=== PATIENT | female | born 1960 | race Caucasian/White ===

== ENCOUNTER 2019-12-12 11:15 | Outpatient (CLI) | payer MEDICARE, OTHER, SELFPAY ==
--- NOTE | ~2019-12-12 | XR_ITS ---
EXAMINATION: XR chest 2V EXAM DATE: 12/12/2019 11:55 INDICATION: Acute upper respiratory tract infection. TECHNIQUE: Frontal and lateral projections of the chest obtained and reviewed. Comparison is made to prior examination from 11/14/2016. FINDINGS: The lungs are clear. There are no pleural effusions. The cardiomediastinal silhouette is within normal limits. There is no pneumothorax suspected. Probable right-sided rotator cuff calcifi c tendinosis. Mild thoracic spondylosis. IMPRESSION: No acute cardiopulmonary findings. Reviewed, dictated and finalized at location B.
[2019-12-12 13:13] LABS: Vitamin D 25 Hydroxy 38.8 ng/mL
== END 2019-12-12 11:16 | disposition home or self-care (01) ==
PROVIDERS: Family Provider Physician Assistant Medical; PCP Family Medicine; Visit Provider Nurse Practitioner Family
DX: E55.9 Vitamin D deficiency, unspecified (principal); J06.9 Acute upper respiratory infection, unspecified; R05 Cough
CPT/HCPCS: 36415; 71046; 82306

== ENCOUNTER 2020-12-01 13:10 | Outpatient (RCR) | payer MEDICARE, OTHER, SELFPAY | END 2021-02-15 15:19 | disposition home or self-care (01) | LOC: ANHDMC 13:10 | PROVIDERS: PCP Family Medicine; Visit Provider Family Medicine | DX: E11.65 Type 2 diabetes mellitus with hyperglycemia (principal); Z71.89 Other specified counseling | CPT/HCPCS: G0108 ==

== ENCOUNTER 2021-03-15 15:55 | Outpatient (CLI) | payer MEDICARE, MEDICAID, SELFPAY ==
--- NOTE | ~2021-03-15 | XR_ITS ---
XR chest 2V DATE: 03/15/2021 16:12 INDICATION: Cough and shortness of breath for one month. Smoker, emphysema. TECHNIQUE: PA and lateral views COMPARISON: 12/12/2019 PA and lateral chest FINDINGS: Normal heart size. No hilar or mediastinal enlargement. No pulmonary infiltrate or consolid ation, pleural effusion or pulmonary vascular congestion or pneumothorax. Diffuse osteopenia. Right-sided probable calcified tendinosis is again suggested. Degenerative spurri ng of the thoracic spine. IMPRESSION: No active cardiopulmonary disease Reviewed, dictated and finalized at location A.
== END 2021-03-15 15:56 | disposition home or self-care (01) ==
PROVIDERS: PCP Family Medicine; Visit Provider Nurse Practitioner Family
DX: R05 Cough (principal)
CPT/HCPCS: 71046

== ENCOUNTER → 2021-09-28 02:11 | Outpatient (CLI) | payer MEDICARE, OTHER, SELFPAY ==
[2021-09-29 03:58] LABS: SARS-CoV-2 RNA PCR Positive
== END ==
PROVIDERS: PCP Family Medicine; Visit Provider Nurse Practitioner Family
DX: U07.1 COVID-19 (principal)
CPT/HCPCS: C9803; U0003; U0005

== ENCOUNTER 2022-10-24 14:03 | Outpatient (CLI) | payer MEDICARE, MEDICAID, SELFPAY ==
--- NOTE | ~2022-10-24 | XR_ITS ---
EXAMINATION: XR chest 2V Exam Date/Time: 10/24/2022 14:10 SINGLE POINTED OPERATOR HISTORY: R05.2 - Subacute cough X 1 MONTH Comparison: 03/15/2021. RESULT: Lines, tubes, and devices: None. Lungs and pleura: Mild diffuse reticulonodular opacities, slightly increased since the prior study. Cardiomediastinal silhouette: Stable. Other: No acute osseous or upper abdominal finding. IMPRESSION: Pulmonary opacities may represent bronchiolitis, as can be seen with atypical infection, asthma, aspi ration, and small airways disease. Reviewed, dictated and finalized at location K. LE POINTED OPERATOR IMPRESSION: Pulmonary opacities may represent bronchiolitis, as can be seen with atypical i nfection, asthma, aspiration, and small airways disease.
== END 2022-10-24 14:04 | disposition home or self-care (01) ==
PROVIDERS: PCP Family Medicine; Visit Provider Family Medicine
DX: R05.2 Subacute cough (principal)
CPT/HCPCS: 71046

== ENCOUNTER 2024-03-06 10:45 | Outpatient (RCR) | payer MEDICARE, MEDICAID, SELFPAY ==
--- NOTE | 2024-01-01 13:24 | OPREHPOC ---
Outpatient Therapy Plan of Care This is a Multidisciplinary Plan of Care that may contain components documented by all disciplines (PT, OT, and ST.) PT Problem 1 PT Problem #1 Knowledge Deficit PT Goal 1 Goal 1. Patient will be independent with HEP Target Visit 3 PT Problem 2 PT Problem #2 Impaired Functional ADLs PT Goal 1 Goal 1. Patient will report no more than 1 instance of urinary incontinence per week 2. Patient will report no more than 1 instance of fecal incontinence per week PT Problem 3 PT Problem #3 Impaired Functional ADLs PT Goal 1 Goal 1. Patient able to do all community activities without fear of incontinence
--- NOTE | 2024-01-01 13:25 | PTOPEVAL1 ---
Assessment and note entered by Jeannie Spaulding DPT Evaluation Information Assessment Status Evaluation Subjective Information Pt reports fecal incontinence over the last 4 years but has worsened over the last year. Incontinence often happens without warning. Voids 6-8 times a day and 0-1 times at night. Can urge to void 5 minutes. Denies pain with urination. Urinary incontinence as well, 4-5 times a week. Incontinence occurs with coughing, getting up from a chair, waiting too long. Volume is small, wearing pull ups at all times currently. BM typically every other day but frequency changes at times. Unable to hold urge for bowels. Fecal incontinence may occur as often as 2 times a day, but other times may not have any for a week or so. Pt does have history of hemorrhoids which sometimes cause pain, 7-8/10 highest and 0/10 lowest. Denies history of pelvic pain. Pt has been 3 times, 2 vaginal deliveries without complications. Complete hysterectomy in 1994. No other b/b issues. Patient reports she will avoid going out in the community due to fear of the incontinence and always has to carry extra clothes etc. Diet: mostly water, 1 soda a day, 2-3 cups of coffee in the morning. Rarely juice and does not drink alcohol. Breakfast often toast and eggs, lunch sandwich or soup, dinner has meat, potatoes, vegetables. Almost always eats 3 meals a day and snacks in the afternoon and evening. avoids corn as that seems to irritate bowels. Patient goal: strengthen muscles and stop leaking Return to MD is not scheduled. Reported Pain Level Pain Score 0: Self Report Assessment PT Clinical Summary The patient is presenting to skilled therapy with a history of worsening fecal incontinence as well as urinary incontinence. She presents with significantly decreased pelvic floor strength and endurance, pelvic organ prolapse, and decreased overall hip and core strength. She will highly benefit from therapy to address these impairments in order to reduce overall incontinence and improve function. Plan of Care Interventions Manual Therapy,Neuro Re-education,Patient/
--- NOTE | 2024-01-15 11:04 | PCPTNOTE ---
Patient called to cancel appointment 01/15/24 due to being in an accident over the weekend.
--- NOTE | 2024-01-22 12:36 | PCPTNOTE ---
Patient called to cancel appointment on 01/22/24 due to illness.
--- NOTE | 2024-02-05 13:31 | PCPTNOTE ---
Patient called to cancel appointment on 02/05/24 due to a personal conflict.
--- NOTE | 2024-02-20 13:27 | PCPTNOTE ---
Patient called to cancel appointment for 02/20/24 due to not feeling well. Rescheduled to next week.
--- NOTE | 2024-02-28 11:43 | OPREHPOC ---
Outpatient Therapy Plan of Care This is a Multidisciplinary Plan of Care that may contain components documented by all disciplines (PT, OT, and ST.) PT Problem 1 PT Problem #1 Knowledge Deficit PT Goal 1 Goal 1. Patient will be independent with HEP Target Visit 8 Progress Partially Met PT Problem 2 PT Problem #2 Impaired Functional ADLs PT Goal 1 Goal 1. Patient will report no more than 1 instance of urinary incontinence per week 2. Patient will report no more than 1 instance of fecal incontinence per week Target Visit 8 Progress Partially Met Comment 1. some progress 2. no change PT Problem 3 PT Problem #3 Impaired Functional ADLs PT Goal 1 Goal 1. Patient able to do all community activities without fear of incontinence Target Visit 8 Progress Not Met
--- NOTE | 2024-02-28 11:43 | PTOPPROG ---
Assessment and note entered by Jeannie Spaulding DPT Evaluation Information Assessment Status Progress Subjective Information Pt reports she feels some improvements in her incontinence. Urinary incontinence is not occurring as often, 7-8 times a week (some days may have multiple and other days will have none). Fecal incontinence is occurring every 2-3 days. Reports a continued fear to go anywhere due to the incontinence. Assessment PT Clinical Summary The patient has attended 4 visits of therapy including her initial evaluation on 01/01/24 ( multiple cancellations due to illness). She reports some progress and is noticing less frequency of urinary incontinence but the same amount of fecal incontinence. She does demonstrate some improved core and pelvic floor strength with verbal cues. Due to her progress but continued weakness and incontinence, she will benefit from continued therapy. She has been educated again in HEP and importance of attending therapy regularly in order to make further improvements. Plan of Care Interventions Manual Therapy,Neuro Re-education,Patient/ Caregiver Education,Therapeutic Activities, Therapeutic Exercise PT Services Indicated Yes Treatment Frequency and 1 time a week for 4 visits Duration These treatments will address the objective and functional deficits as defined above. The patient will be advanced safely and appropriately in order for the patient to progress towards his/her prior level of function. Additional exercises will be introduced and as well as a comprehensive home exercise program upon discharge, if needed, ?to ensure carryover of functional gains achieved in the clinic. This treatment plan has been reviewed and agreement upon by the patient.
--- NOTE | 2024-03-13 08:24 | PCPTNOTE ---
Patient called to cancel appointment 03/13/24 due to illness.
--- NOTE | 2024-03-20 11:11 | PCPTNOTE ---
Patient called to cancel appointment on 03/20/24 due to illness.
--- NOTE | 2024-03-27 14:48 | PCPTNOTE ---
Patient did not show up for appointment on 03/27/24.
--- NOTE | 2024-05-06 11:20 | PTOPDC ---
Assessment and note entered by Jeannie Spaulding, DPT Evaluation Information Assessment Status Discharge - Pt Not Present Subjective Information - Assessment PT Clinical Summary The patient has not attended therapy since 03/06/24 and had 6 cancellations and 1 no show during her care. She will be discharged this date. Plan of Care PT Services Indicated No
== END 2024-03-31 23:59 | disposition home or self-care (01) ==
LOC: ANHGOSHPT 10:45
PROVIDERS: PCP Family Medicine
DX: R29.898 Other symptoms and signs involving the musculoskeletal system (principal); C80.1 Malignant (primary) neoplasm, unspecified; G63 Polyneuropathy in diseases classified elsewhere
CPT/HCPCS: 97112; 97161; 97530

== ENCOUNTER 2024-08-14 11:01 | Outpatient (CLI) | payer MEDICARE, MEDICAID, SELFPAY ==
--- NOTE | ~2024-08-14 | XR_ITS ---
XR chest 2V Ordering provider: Karen Whiteside APRN History: 64 years Female with . INCREASED SOB AND COUGH . Comparison: October 24, 2022 FINDINGS: MEDIASTINUM: The cardiac silhouette is not enlarged. LUNGS: No effusions or pneumothorax. Prominent bronchovascular markings in the lower lobes which may indicate bronchitis.. Early pneumonia cannot be excluded. OTHER: No free air under the diaphragm. Degenerative changes of the spine. IMPRESSION: Prominent bronchovascular markings in the lower lobes which may indicate bronchitis.. Early pneumonia cannot be excluded. Reviewed, dictated and finalized at location A. PULLER IMPRESSION: Prominent bronchovascular markings in the lower lobes which may indicate bronch itis.. Early pneumonia cannot be excluded.
== END 2024-08-14 11:02 | disposition home or self-care (01) ==
PROVIDERS: PCP Family Medicine; Visit Provider Nurse Practitioner Adult Health
DX: R05.9 Cough, unspecified (principal); R06.02 Shortness of breath
CPT/HCPCS: 71046

== ENCOUNTER 2025-01-15 12:56 | Outpatient (CLI) | payer MEDICARE, MEDICAID, SELFPAY ==
--- NOTE | ~2025-01-15 | DEXA_ITS ---
Bone Density Report Name: CHUY PA Age: 64 Sex: Female Ethnicity: White Date of : 1960 Indication: postmenopausal; screening for osteoporosis; cancer; asthma or emphysema; hysterectomy; Referring Provider: VIRGILIO BIRD Study: Bone densitometry was performed. Exam Date: January 15, 2025 Accession number: [id number] Bone Density: Region BMD T-score Z-score Classification AP Spine(L1-L4) 1.081 0.3 2.0 Normal Femoral Neck (Left) 0.691 -1.4 0.0 Osteopenia Total Hip (Left) 0.735 -1.7 -0.5 Osteopenia Femoral Neck (Right) 0.680 -1.5 -0.1 Osteopenia Total Hip (Right) 0.728 -1.8 -0.6 Osteopenia Total Hip Mean 0.732 -1.8 -0.6 Osteopenia World Health Organization criteria for BMD impression classify patients as: Normal (T-score at or above -1.0), Osteopenia (T-score between -1.0 and -2.5), or Osteoporosis (T-score at or below -2.5). 10-year Fracture Risk(1): Major Osteoporotic Fracture 8.7% Hip Fracture 1.4% Reported Risk Factors: [place] (), Neck BMD=0.680, BMI=28.3, smoking (1) FRAX(R) Version 3.08. Fracture probability calculated for an untreated patient. Fracture probability may be lower if the patient has received treatment. Clinical Information Provided by Patient: Smokes Has used the following medications: Fosamax (i.e. alendronate), Vitamin D Has the following medical conditions: Asthma or Emphysema, Cancer, Hysterectomy Patient maximum height was 64 Menopause Age: 34 No regular weight bearing exercise Drinks caffeinated beverages Onset of menses at age 13 Number of children 2 Impression: The patient has low bone mass, based on the Right Total Hip T-score. The patient has an estimated ten-year risk of hip fracture of 1.4% and an estimated ten-year risk of major fracture of 8.7%, based on the WHO FRAX algorithm. The patient has risk factors, including: smoking. Discussion: BONE DENSITY IS LOW AT ONE OR MORE SKELETAL SITES. This patient's lowest T-score is low at one or more skeletal sites. It meets the World Health Organization's (WHO) criteria for ?low bone mass? (T-score between -1.0 and -2.5). The patient's 10-year risk of fracture as calculated by FRAX is less than the threshold where pharmacological therapy is recommended by the National Osteoporosis Foundation (NOF). However, all treatment decisions require clinical judgment and consideration of individual patient factors, including patient preferences, comorbidities, previous drug use, risk factors not captured in the FRAX model (e.g., frailty, falls, vitamin D deficiency, increased bone turnover, interval significant decline in bone density) and possible under or overestimation of fracture risk by FRAX. The patient should follow a healthful lifestyle (good nutrition with adequate calcium and vitamin D, and appropriate weight-bearing exercise). Follow-Up: Consider repeating this study in 2 to 3 years to reassess this patient's status, or sooner if there is some new clinical indication. Reported by: ANT on 01/15/2025 1:27:00 PM. Reviewed, dictated and finalized at location [facility] [place]
--- OUTSIDE RECORDS SUMMARY | 2025-01-15 13:54 | XMS_ITS | Continuity of Care Document ---
Author Organization [facility] Address [address] [place] [address] [address] [place] [address] Phone Care Team Providers Care Cloth Mender Name Role Phone Camacho OD, Joaquin Unavailable Unavailable Procedures Procedure Date Eye Exam & Treatment Advance Directives Directive Yes / No Effective Date File Name No Information Encounters Encounter Description Practice Location Reason(s) For Visit Diagnoses Date Provider Providers Copied on Encounter [facility], [address], [place], [place], [address], [place] tel:[phone] [facility] No Information 2-200 7 Camacho OD Joaquin. [address], [place], [address], [place]. tel:[phone] Family History Family Member Type Diagnosis Age At Onset No Information Payers Payer name Insurance type Covered libertarian ID Authoriza tion(s) Medicaid [facility] [id number] Social History Type Description Quantity Date Captured [...]
--- OUTSIDE RECORDS SUMMARY | 2025-01-15 13:54 | XMS_ITS | Encounter Summary ---
Author Organization [employer] [facility] Address [address] [place] [address] Care Team Providers Care Glue Maker Name Role Phone Radha Castillo MD Primary Care Provider [phone] Encounter Details Date Type Department Care Team (Latest Contact Info) Description 03/02/2004 Outpatient Historical [facility] Jorge Mcrae MD [address] [place] [id number] LUMP OR MASS IN BREAST (Primary Dx) Social History Tobacco Use Types Packs/Day Years Used Date Smoking Tobacco: Never Assessed Comments Unknown Sex and Gender Information Value Date Recorded Sex Assigned at Not on file Legal Sex Female 5:24 AM [employer] Gender Identity Not on file Sexual Orientation Not on file documented as of this encounter Plan of Treatment Not on file documented as of this encounter Visit Diagnoses Diagnosis Lump or mass in breast- Primary documented in this encounter Care Teams Glue Maker Relationship Specialty Start Date End Date Radha Castillo MD 2022 [address] [address] PCP - General 04/24/06 documented as of this encounter
--- OUTSIDE RECORDS SUMMARY | 2025-01-15 13:54 | XMS_ITS | CONTINUITY OF CARE DOCUMENT ---
Author Name ashkan luther Address Unknown Organization [facility] Address [address] [place] [address] Phone [phone] Care Team Providers Care Health Spa Manager Name Role Phone Kasia FREDERICK, Marcin Carmona Unavailable [phone] SHUN FREDERICK, LENO F Unavailable SHUN FREDERICK, LENO F Unavailable [phone] PROBLEMS Condition Status Date Provider Notes Shortness of breath (SOB) active Joby Torres Family History of Hypertension: completed - To manjeet Patrick MD Family History of Hypertension: completed - To manjeet Patrick MD Other symptoms involving cardiovascular system active Marcin Pedroza MD Chest pain atypical active Marcin Pedroza MD Cardiogenic shock active Marcin Aguilar Cancer - Breast active Marcin Pedroza MD CAD active Marcin Pedroza MD DM - type 2 active Marcin Pedroza MD Family Hx heart disease active Marcin jennings MD HTN essential active Marcin Pedroza MD Takotsubo syndrome active Marcin Pedroza MD Tobacco abuse active Marcin Pedroza MD Palpitations active Marcin Pedroza MD Snoring active Marcin Pedroza MD Leg pain active Marcin Pedroza MD Afib active Austin Patrick MD SLEEP APNEA active Marcin Pedroza MD Carotid bruit right active Marcin Pedroza MD Thyroid nodule active Marcin Pedroza MD Exposure to COVID-19 coronavirus active Nima Pedroza MD Cardiovascular Condition Screening active S jc Pedroza MD RBBB active Marcin Pedroza MD ENCOUNTERS Date Type Provider Location Encounter Diag nosis - In-person encounter Office Visit Marcin Pedroza MD [facility] - In-person encounter Office Visit Marcin Pedroza MD [facility] - In-person encounter Office Visit Marcin Pedroza MD [facility] RBBB - In-person encounter Office Visit Marcin Pedroza MD [facility] Cardiovascular Condition Screening - In-person encounter Office Visit Marcin Pedroza MD [facility] Exposure to COVID-19 coronavirus - In-person encounter Office Visit Marcin Pedroza MD [facility] Thyroid nodule - In-person encounter Office Visit Marcin Pedroza MD [facility] Carotid bruit right - In-person encounter Office Visit Marcin Pedroza MD [facility] SLEEP APNEA - In-person encounter Office Visit Marcin Pedroza MD [facility] - In-person encounter Office Visit Austin Patrick MD [facility] Family History of Hypertension:Family History of Hypertension:Afib - In-person encounter Office Visit Marcin Pedroza MD [facility] - In-person encounter Office Visit Marcin Pedroza MD [facility] - In-person encounter Office Visit Marcin Pedroza MD [facility] Leg pain - In-person encounter Office Visit Marcin Pedroza MD [facility] Snoring - In-person encounter Office Visit Marcin Pedroza MD [facility] Palpitations - In-person encounter Office Visit Marcin Pedroza MD [facility] Other symptoms involving cardiovascular systemChest pain atypicalCardiogenic shockCancer - BreastCADDM - type 2Family Hx heart diseaseHTN essentialTakotsubo syndromeTobacco abuse VITAL SIGNS Date Observation Value Provider Body Mass Index (Ratio) 22.14 kg/m2 Yinka Pruett blood pressure, diastolic 69 mm[Hg] [facility], oximetry 91 % [facility] pulse rate 95 /min [facility] respiratory rate E&M 12 /min [facility] weight E&M 129 [lb_av] [facility] height E&M 64 [in_i] [facility] blood pressure, cuff size regular [facility] Body Mass Index (Ratio) 6.35 kg/m2 Nati Pedroza MD blood pressure, diastolic 65 mm[Hg] Vianey nkLogdagmar blood pressure, systolic 120 mm[Hg] Kathy kLogdagmar weight E&M 37 [lb_av] Aleta Parker blood pressure, cuff size regular Brian Parker blood pressure, diastolic 65 mm[Hg] [facility] blood pressure, systolic 120 mm[Hg] [facility], oximetry 93 % Aleta Parker respiratory rate E&M 17 /min Aleta buchanan pulse rate 110 /min Aleta Parker height E&M 64 [in_i] Aleta Parker Body Mass Index (Ratio) 23.51 kg/m2 Nati Pedroza MD blood pressure, diastolic 75 mm[Hg] Li nkLogic blood pressure, systolic 117 mm[Hg] Kathy kLogic blood pressure, cuff size regular viky Lofton blood pressure, diastolic 75 mm[Hg] Caren [place]on blood pressure, systolic 117 mm[Hg] She pilar [place]on oxygen saturation, oximetry 96 % Alexsandra Lofton pulse rate 102 /min Alexsandra Lofton weight E&M 137 [lb_av] Alexsandra Lofton respiratory rate E&M 20 /min Alexsandra Lofton height E&M 64 [in_i] Alexsandra Lofton Body Mass Index (Ratio) 24.20 kg/m2 Nati Pedroza MD blood pressure, diastolic 80 mm[Hg] St bessy Acosta blood pressure, systolic 117 mm[Hg] Jori Acosta oxygen saturation, oximetry 98 % Cherelle Acosta pulse rate 94 /min Cherelle Acosta respiratory rate E&M 18 /min Cherelle burgess weight E&M 141 [lb_av] Cherelle Acosta height E&M 64 [in_i] Cherelle Acosta Body Mass Index (Ratio) 22.83 kg/m2 Nati Pedroza MD blood pressure, diastolic 76 mm[Hg] Li nkLogic blood pressure, systolic 118 mm[Hg] Kathy kLogic pulse rate 109 /min Jena Castillo blood pressure, cuff size regular Sa ra Castillo blood pressure, diastolic 76 mm[Hg] Sa ra Castillo blood pressure, systolic 118 mm[Hg] Opal a Castillo respiratory rate E&M 17 /min Jena Si ms oxygen saturation, oximetry 96 % Jena Castillo weight E&M 133 [lb_av] Jena Castillo height E&M 64 [in_i] Jena Castillo Body Mass Index (Ratio) 24.71 kg/m2 Nati Pedroza MD blood pressure, diastolic 78 mm[Hg] Li nkLogic blood pressure, systolic 124 mm[Hg] Kathy kLogic pulse rate 99 /min Chastity Mat blood pressure, diastolic 78 mm[Hg] Ch astity Mat blood pressure, systolic 124 mm[Hg] Violeta stity Mat oxygen saturation, oximetry 95 % Chastity Mat weight E&M 144 [lb_av] Chastity Mat respiratory rate E&M 16 /min Chastit y Mat height E&M 64 [in_i] Chastity Mat Body Mass Index (Ratio) 25.06 kg/m2 Nati Pedroza MD blood pressure, diastolic 60 mm[Hg] Leann Phan blood pressure, systolic 110 mm[Hg] Celia Phan oxygen saturation, oximetry 96 % Tyree Phan respiratory rate E&M 18 /min Abraham Phan pulse rate 91 /min Tyree ghotra weight E&M 146 [lb_av] Tyree ghotra height E&M 64 [in_i] Tyree ghotra Body Mass Index (Ratio) 25.23 kg/m2 Nati Pedroza MD blood pressure, cuff size regular Arian Adler RN blood pressure, diastolic 67 mm[Hg] Arian Adler RN blood pressure, systolic 104 mm[Hg] Louis Adler RN oxygen saturation, oximetry 97 % Louis Adler RN respiratory rate E&M 18 /min Louis rosado RN pulse rate 101 /min Louis Adler RN weight E&M 147 [lb_av] Louis Adler RN Body Mass Index (Ratio) 25.40 kg/m2 Nati Pedroza MD blood pressure, cuff size regular Cy eliana Long blood pressure, diastolic 70 mm[Hg] Cy eliana Long blood pressure, systolic 104 mm[Hg] Esthela donte Long oxygen saturation, oximetry 98 % Anuradha Long respiratory rate E&M 16 /min Anuradhadonte Long pulse rate 95 /min Anuradha Evans l weight E&M 148 [lb_av] Anuradha Campbel l height E&M 64 [in_i] Anuradha Campbel l Body Mass Index (Ratio) 24.71 kg/m2 Phu Patrick MD oxygen saturation, oximetry 98 % Chastity Mat blood pressure, diastolic 68 mm[Hg] Ch astity Mat blood pressure, systolic 114 mm[Hg] Violeta stity Mat pulse rate 83 /min Chastity Mat respiratory rate E&M 16 /min Chastit y Mat weight E&M 144 [lb_av] Chastity Mat height E&M 64 [in_i] Chastity Mat Body Mass Index (Ratio) 26.77 kg/m2 Agusto Plurad blood pressure, diastolic 80 mm[Hg] Da naida Jace blood pressure, systolic 138 mm[Hg] Dac ia Jace oxygen saturation, oximetry 96 % Nai Jace respiratory rate E&M 16 /min Nai V oss pulse rate 98 /min Nai Jace weight E&M 156 [lb_av] Nai Jace height E&M 64 [in_i] Nai Jace Body Mass Index (Ratio) 28.01 kg/m2 Nati Pedroza MD blood pressure, diastolic 73 mm[Hg] Leann Carr Phan blood pressure, systolic 129 mm[Hg] Celia Phan oxygen saturation, oximetry 97 % Tyree Phan respiratory rate E&M 18 /min Abraham Phan pulse rate 113 /min Tyree ghotra weight E&M 163.2 [lb_av] Tyree pepeon height E&M 64 [in_i] Tyree Chisholm nson pulse rate #2 100 [facility] blood pressure, tellez tolic, second observation 83 mm[Hg] [facility] blood pressure, syst olic, second observation 141 mm[Hg] [facility], [facility] 98 % [facility] pulse rate 100 /min [facility] blood pressure, diastolic 83 mm[Hg] Vi ctoria Tebid blood pressure, systolic 141 mm[Hg] Romel radha Tebid pulse rate #2 98 [facility] pressure, tellez tolic, second observation 92 mm[Hg] [facility] blood pressure, syst olic, second observation 145 mm[Hg] [facility] oxygen saturation, oximetry 98 % [facility] pulse rate 98 /min [facility] blood pressure, diastolic 92 mm[Hg] Vi ctoria Tebid blood pressure, systolic 145 mm[Hg] Romel radha Tebid pulse rate #2 99 Etters Tebid blood pressure, tellez tolic, second observation 72 mm[Hg] Shelby d blood pressure, syst olic, second observation 115 mm[Hg] Shelby d oxygen saturation, oximetry 98 % Shelby pulse rate 99 /min Etters d blood pressure, diastolic 72 mm[Hg] Vi ctoria Tebid blood pressure, systolic 115 mm[Hg] Romel radha Tebid pulse rate #2 98 [facility] blood pressure, tellez tolic, second observation 79 mm[Hg] [facility] blood pressure, syst olic, second observation 123 mm[Hg] [facility] oxygen saturation, oximetry 98 % [facility] pulse rate 98 /min [facility] blood pressure, diastolic 79 mm[Hg] Vi [facility] Ted blood pressure, systolic 123 mm[Hg] [facility] Ted pulse rate #2 94 Etters blood pressure, tellez tolic, second observation 89 mm[Hg] Etters d blood pressure, syst olic, second observation 167 mm[Hg] Etters d oxygen saturation, oximetry 98 % Etters pulse rate 94 /min [facility] blood pressure, diastolic 89 mm[Hg] Vi [facility] Ted blood pressure, systolic 167 mm[Hg] [facility]2 92 [facility] blood pressure, tellez tolic, second observation 91 mm[Hg] Etters d blood pressure, syst olic, second observation 141 mm[Hg] [facility] oxygen [facility], oximetry 98 % [facility] pulse rate 92 /min [facility] blood pressure, diastolic 91 mm[Hg] Vi proria Tebid blood pressure, systolic 141 mm[Hg] Romel radha Tebid pulse rate #2 98 [facility] blood pressure, tellez tolic, second observation 70 mm[Hg] [facility] blood pressure, syst olic, second observation 107 mm[Hg] [facility] oxygen saturation, oximetry 98 % [facility] pulse rate 98 /min [facility] blood pressure, diastolic 70 mm[Hg] Vi ctoria Tebid blood pressure, systolic 107 mm[Hg] [facility], tellez tolic, second observation 72 mm[Hg] [facility] blood pressure, syst olic, second observation 123 mm[Hg] [facility] oxygen saturation, oximetry 98 % [facility] pulse rate 99 /min [facility] blood pressure, diastolic 72 mm[Hg] Vi proria Tebid blood pressure, systolic 123 mm[Hg] [facility] #2 103 [facility] blood pressure, tellez tolic, second observation 71 mm[Hg] [facility] blood pressure, syst olic, second observation 162 mm[Hg] [facility] oxygen saturation, oximetry 98 % [facility] pulse rate 103 /min [facility] blood pressure, diastolic 71 mm[Hg] Vi ctoria Tebid blood pressure, systolic 162 mm[Hg] Romel radha Tebid pulse rate #2 103 [facility] blood pressure, tellez tolic, second observation 85 mm[Hg] [facility] blood pressure, syst olic, second observation 128 mm[Hg] [facility] oxygen saturation, oximetry 98 % [facility] pulse rate 103 /min [facility] blood pressure, diastolic 85 mm[Hg] Vi ctoria Tebid blood pressure, systolic 128 mm[Hg] Romel wilsonia bid pulse rate #2 108 Etters d blood pressure, tellez tolic, second observation 95 mm[Hg] Etters d blood pressure, syst olic, second observation 118 mm[Hg] [facility] oxygen saturation, oximetry 98 % Etters pulse rate 108 /min Etters blood pressure, diastolic 95 mm[Hg] Vi ctoria Ted blood pressure, systolic 118 mm[Hg] Romel radha d pulse rate #2 101 [facility] blood pressure, telelz tolic, second observation 73 mm[Hg] [facility] blood pressure, syst olic, second observation 129 mm[Hg] [facility] oxygen saturation, oximetry 98 % Etters pulse rate 101 /min Etters blood pressure, diastolic 73 mm[Hg] Vi [facility] Ted blood pressure, systolic 129 mm[Hg] [facility]el [facility] #2 95 [facility] blood pressure, tellez tolic, second observation 76 mm[Hg] [facility] blood pressure, syst olic, second observation 130 mm[Hg] [facility] oxygen saturation, oximetry 98 % [facility] pulse rate 95 /min Etters blood pressure, diastolic 76 mm[Hg] Vi [facility] Ted blood pressure, systolic 130 mm[Hg] Romel radha bid pulse rate #2 90 [facility] d blood pressure, tellez tolic, second observation 82 mm[Hg] [facility] blood pressure, syst olic, second observation 115 mm[Hg] [facility] oxygen saturation, oximetry 98 % [facility] pulse rate 90 /min Shelby Tebid blood pressure, diastolic 82 mm[Hg] Vi ctoria Tebid blood pressure, systolic 115 mm[Hg] Romel radha Tebid pulse rate #2 97 [facility] blood pressure, tellez tolic, second observation 92 mm[Hg] [facility] blood pressure, syst olic, second observation 140 mm[Hg] [facility] oxygen saturation, oximetry 98 % Shelby d pulse rate 97 /min [facility] blood pressure, diastolic 92 mm[Hg] Vi ctoria Tebid blood pressure, systolic 140 mm[Hg] Romel radha Tebid pulse rate #2 84 [facility] blood pressure, tellez tolic, second observation 85 mm[Hg] [facility] blood pressure, syst olic, second observation 124 mm[Hg] [facility] oxygen saturation, oximetry 98 % Shelby d pulse rate 84 /min [facility] blood pressure, diastolic 85 mm[Hg] Vi [facility] Tebid blood pressure, systolic 124 mm[Hg] Romel radha Tebid pulse rate #2 97 [facility] blood pressure, tellez tolic, second observation 90 mm[Hg] [facility] blood pressure, syst olic, second observation 141 mm[Hg] [facility] oxygen saturation, oximetry 97 % [facility] pulse rate 97 /min [facility] blood pressure, diastolic 90 mm[Hg] Vi ctoria Tebid blood pressure, systolic 141 mm[Hg] Romel radha Tebid Body Mass Index (Ratio) 28.04 kg/m2 Nati Pedroza MD blood pressure, diastolic 90 mm[Hg] Leann Phan blood pressure, systolic 141 mm[Hg] Celia Phan oxygen saturation, oximetry 97 % Tyree Phan respiratory rate E&M 18 /min Abraham Phan pulse rate 97 /min Tyree ghotra weight E&M 163.4 [lb_av] Tyree house height E&M 64 [in_i] Tyree ghotra pulse rate #2 97 [facility] blood pressure, tellez tolic, second observation 88 mm[Hg] [facility] blood pressure, syst olic, second observation 143 mm[Hg] [facility] oxygen saturation, oximetry 98 % [facility] pulse rate 97 /min [facility] blood pressure, diastolic 88 mm[Hg] Vi ctoria Tebid blood pressure, systolic 143 mm[Hg] Romel radha Tebid pulse rate #2 90 [facility] blood pressure, tellez tolic, second observation 85 mm[Hg] [facility] blood pressure, syst olic, second observation 136 mm[Hg] [facility] oxygen saturation, oximetry 98 % [facility] pulse rate 90 /min [facility] blood pressure, diastolic 85 mm[Hg] Vi ctoria Tebid blood pressure, systolic 136 mm[Hg] Romel radha Tebid pulse rate #2 102 [facility] blood pressure, tellez tolic, second observation 88 mm[Hg] [facility] blood pressure, syst olic, second observation 132 mm[Hg] [facility] oxygen saturation, oximetry 98 % [facility] pulse rate 102 /min [facility] blood pressure, diastolic 88 mm[Hg] Vi ctoria Tebid blood pressure, systolic 132 mm[Hg] Romel radha Tebid pulse rate #2 101 Et[facility] d blood pressure, tellez tolic, second observation 84 mm[Hg] Shelby d blood pressure, syst olic, second observation 135 mm[Hg] Shelby d oxygen saturation, oximetry 98 % Etters pulse rate 101 /min [facility] blood pressure, diastolic 84 mm[Hg] Vi [facility] Tebid blood pressure, systolic 135 mm[Hg] [facility] Tebid pulse rate #2 97 [facility] blood pressure, tellez tolic, second observation 84 mm[Hg] [facility] blood pressure, syst olic, second observation 143 mm[Hg] [facility] oxygen saturation, oximetry 98 % [facility] pulse rate 97 /min [facility] blood pressure, diastolic 84 mm[Hg] Vi [facility] Ted blood pressure, systolic 143 mm[Hg] [facility] Ted pulse rate #2 91 Etters d blood pressure, tellez tolic, second observation 90 mm[Hg] [facility] blood pressure, syst olic, second observation 140 mm[Hg] [facility] oxygen saturation, oximetry 98 % [facility] pulse rate 91 /min [facility] blood pressure, diastolic 90 mm[Hg] Vi [facility] Tebid blood pressure, systolic 140 mm[Hg] [facility] #2 96 [facility] blood pressure, tellez tolic, second observation 82 mm[Hg] [facility] blood pressure, syst olic, second observation 136 mm[Hg] [facility] oxygen saturation, oximetry 98 % [facility] pulse rate 96 /min [facility] blood pressure, diastolic 82 mm[Hg] Vi ctoria Tebid blood pressure, systolic 136 mm[Hg] Romel radha Tebid pulse rate #2 92 Et[facility] d blood pressure, tellez tolic, second observation 82 mm[Hg] Etters d blood pressure, syst olic, second observation 136 mm[Hg] [facility] oxygen saturation, oximetry 98 % Etters pulse rate 92 /min Etters blood pressure, diastolic 82 mm[Hg] Vi ctoria Tebid blood pressure, systolic 136 mm[Hg] Romel radha bid pulse rate #2 96 [facility] blood pressure, tellez tolic, second observation 74 mm[Hg] [facility] blood pressure, syst olic, second observation 138 mm[Hg] [facility] oxygen saturation, oximetry 98 % [facility] pulse rate 96 /min [facility] blood pressure, diastolic 74 mm[Hg] Vi [facility] Tebid blood pressure, systolic 138 mm[Hg] Romel radha Tebid pulse rate #2 92 Et[facility] blood pressure, tellez tolic, second observation 82 mm[Hg] [facility] blood pressure, syst olic, second observation 136 mm[Hg] [facility] oxygen saturation, oximetry 98 % [facility] pulse rate 92 /min [facility] blood pressure, diastolic 82 mm[Hg] Vi ctoria Tebid blood pressure, systolic 136 mm[Hg] Romel radha Tebid pulse rate #2 92 [facility] blood pressure, tellez tolic, second observation 76 mm[Hg] [facility] blood pressure, syst olic, second observation 142 mm[Hg] [facility] oxygen saturation, oximetry 98 % [facility] pulse rate 92 /min [facility] blood pressure, diastolic 76 mm[Hg] Vi ctoria Tebid blood pressure, systolic 142 mm[Hg] Romel radha Tebid pulse rate #2 98 [facility] blood pressure, tellez tolic, second observation 92 mm[Hg] [facility] blood pressure, syst olic, second observation 144 mm[Hg] [facility] oxygen saturation, oximetry 98 % [facility] pulse rate 98 /min [facility] blood pressure, diastolic 92 mm[Hg] Vi [facility] Tebid blood pressure, systolic 144 mm[Hg] [facility] Tebid pulse rate #2 92 [facility] blood pressure, tellez tolic, second observation 91 mm[Hg] [facility] blood pressure, syst olic, second observation 131 mm[Hg] [facility] oxygen saturation, oximetry 98 % [facility] pulse rate 92 /min [facility] blood pressure, diastolic 91 mm[Hg] Vi [facility] Ted blood pressure, systolic 131 mm[Hg] Romel radha Tebid pulse rate #2 95 [facility] blood pressure, tellez tolic, second observation 95 mm[Hg] [facility] blood pressure, syst olic, second observation 133 mm[Hg] [facility] oxygen saturation, oximetry 98 % [facility] pulse rate 95 /min [facility] blood pressure, diastolic 95 mm[Hg] Vi [facility] Tebid blood pressure, systolic 133 mm[Hg] [facility] Tebid pulse rate #2 95 [facility] blood pressure, tellez tolic, second observation 80 mm[Hg] [facility] blood pressure, syst olic, second observation 119 mm[Hg] Etters Tebid oxygen saturation, oximetry 98 % [facility] pulse rate 95 /min Etters Tebid blood pressure, diastolic 80 mm[Hg] Vi ctoria Tebid blood pressure, systolic 119 mm[Hg] Romel radha Tebid pulse rate #2 99 [facility] Tebid blood pressure, tellez tolic, second observation 96 mm[Hg] [facility] blood pressure, syst olic, second observation 154 mm[Hg] Etters Tebid oxygen saturation, oximetry 98 % [facility] pulse rate 99 /min [facility] blood pressure, diastolic 96 mm[Hg] [facility] Tebid blood pressure, systolic 154 mm[Hg] Romel radha Tebid Body Mass Index (Ratio) 28.83 kg/m2 Nati Pedroza MD blood pressure, diastolic 82 mm[Hg] Da naida Jace blood pressure, systolic 126 mm[Hg] Dac ia Jace oxygen saturation, oximetry 96 % Nai Jace respiratory rate E&M 16 /min Nai V oss pulse rate 95 /min Nai Jace weight E&M 168 [lb_av] Nai Jace height E&M 64 [in_i] Nai Jace Body Mass Index (Ratio) 28.66 kg/m2 Nati Pedroza MD blood pressure, diastolic 76 mm[Hg] Da naida Jace blood pressure, systolic 132 mm[Hg] Dac ia Jace oxygen saturation, oximetry 96 % Nai Jace respiratory rate E&M 16 /min Nai V oss pulse rate 93 /min Nai Jace weight E&M 167 [lb_av] Nai Jace height E&M 64 [in_i] Nai Jace Body Mass Index (Ratio) 28.56 kg/m2 Nati Pedroza MD blood pressure, resting No Kate Phan blood pressure, diastolic 86 mm[Hg] Leann Phan blood pressure, systolic 146 mm[Hg] Celia Phan oxygen saturation, oximetry 98 % Tyree Phan respiratory rate E&M 18 /min Abraham Phan pulse rate 110 /min Tyree ghotra weight E&M 166.4 [lb_av] Tyree house height E&M 64 [in_i] Tyree ghotra ALLERGIES No Known Drug Allergies RESULTS Date Observation Value Provider Reference Range Interpretation Location 2 free thyroxine index 2.2 [facility] 1.2-4.9 2 triiodothyronine resin uptake 26 % [facility] 24-39 2 thyroxine, serum, total 8.4 ug/dL [facility] 4.5-12.0 2 thyroid stimulating hormone, serum 0.707 u[IU]/mL [facility] 0.450-4.500 2 lipoprotein, beta, serum, point, quantitative, calculated 28 mg/dL [facility] 0-99 2 HDL cholesterol, serum 41 mg/dL [facility] >39 2 triglyceride, serum, random 232 mg/dL [facility] 0-149 High 2 cholesterol, serum 105 mg/dL [facility] 130-573 6532/10/2 2 alanine aminotransferase (SGPT), serum 15 1/L [facility] 0-32 2 aspartate aminotransferase (SGOT), serum 11 1/L [facility] 0-40 2 alkaline phosphatase, serum 171 1/L [facility] 39-117 High 2 bilirubin, serum, total 0.3 mg/dL [facility] 0.0-1.2 2 albumin/globulin ratio, serum 2.2 [facility] 1.2-2.2 2 globulin, serum 2.1 [facility] 1.5-4.5 2 albumin, serum 4.7 g/dL [facility] 3.8-4.9 2 protein, total, serum 6.8 g/dL [facility] 6.0-8.5 2 calcium, serum 9.7 mg/dL [facility] 8.7-10.2 2 carbon dioxide, venous blood 26 mmol/L [facility] 20-29 2 chloride, serum 103 mmol/L [facility] 96-106 2 potassium, serum 4.6 mmol/L [facility] 3.5-5.2 2 sodium, serum 142 mmol/L [facility] 436-546 7829/10/2 2 urea nitrogen/creatinine ratio, serum 28 [facility] 9-23 High 2 eGFR if 120 mL/min/{1 .73_m2} [facility] >59 2 eGFR if not 104 mL/min/{1 .73_m2} [facility] >59 2 creatinine, serum 0.53 mg/dL [facility] 0.57-1.00 Low 2 urea nitrogen, blood 15 mg/dL [facility] 6-24 2 blood glucose, random 145 mg/dL [facility] 65-99 High 0 alanine aminotransferase (SGPT), serum 16 1/L [facility] 0-32 0 aspartate aminotransferase (SGOT), serum 15 1/L [facility] 0-40 0 alkaline phosphatase, serum 163 1/L [facility] 39-117 High 0 bilirubin, serum, direct 0.11 mg/dL [facility] 0.00-0.40 0 bilirubin, serum, total 0.2 mg/dL [facility] 0.0-1.2 0 albumin, serum 4.6 g/dL [facility] 3.5-5.5 0 protein, total, serum 6.4 g/dL [facility] 6.0-8.5 0 free thyroxine index 2.6 [facility] 1.2-4.9 0 triiodothyronine resin uptake 28 % [facility] 24-39 0 thyroxine, serum, total 9.3 ug/dL [facility] 4.5-12.0 0 thyroid stimulating hormone, serum 0.766 u[IU]/mL [facility] 0.450-4.500 HISTORY OF MEDICATION USE Medication Status Instructions Dates Provider Indications Com ments diltiazem HCl 30 mg tablet active TAKE 1 TABLET BY MOUTH THREE TIMES DAILY Kathe Ruharinder diltiazem HCl 30 mg tablet completed Take 1 tablet by mouth three times a day - Kathe Engel albuterol sulfate 90 mcg/actuation HFA aerosol inhaler active Inhale 1 puff using inhaler three times a day Marcin Pedroza MD Nicoderm CQ 21 mg/24 hr patch 24 hour active 1 patch to skin once a day APPLY 1 PATCH EVERY DAY Marcin Pedroza MD diltiazem HCl 30 mg tablet completed TAKE 1 TABLET BY MOUTH THREE TIMES DAILY - Sylvie Lyles Nicoderm CQ 21 mg/24 hr patch 24 hour completed APPLY 1 PATCH EVERY DAY - Marcin Pedroza MD aspirin 81 mg tablet,delayed release (DR/EC) active 1 tablet by mouth once a day Tyree Phan BYDUREON 2 MG SUBCUTANEOUS PEN-INJECTOR active 2 mg once a week Tyree Phan diltiazem HCl 30 mg tablet completed Take 1 tablet by mouth three times a day - Alexsandra Lofton ISOSORBIDE MONONITRATE ER 30 MG [id number] completed TAKE 1 TABLET BY MOUTH DAILY - Louis Adler RN SPIRONOLACTONE 25 MG ORAL TABLET completed ONE TAB. DAILY - Tyree Phan ELIQUIS 5 MG ORAL TABLET completed one tablet twice daily - Tyree Phan DILTIAZEM HCL 30 MG ORAL TABLET entered-in- error 1 tablet three times daily - Priscila Cruz Ventolin HFA 90 mcg/actuation HFA aerosol inhaler completed as needed - Marcin Pedroza MD Synjardy XR 25-1,000 mg tablet, IR - ER, biphasic 24hr active 1 tablet once a day Louis Adler RN Crestor 40 mg tablet active 1 tablet once a day Leigha Rivero METHOCARBAMOL 500 MG TABS active as needed Chastity Mat METOPROLOL SUCCINATE ER 50 MG ORAL TABLET EXTENDED RELEASE 24 HOUR completed 1 tablet daily - Louis Adler RN CALCIUM CITRATE + D3 MAXIMUM TABLET completed take one daily - Louis Adler RN TOPROL XL 25 MG ORAL TABLET EXTENDED RELEASE 24 HOUR completed ONE TAB DAILY - Tyree Phan ISOSORBIDE MONONITRATE 30MG ER TABS completed TAKE 1 TABLET BY MOUTH DAILY - Austin Patrick MD FLONASE 50 MCG/ACT NASAL SUSPENSION active 2 spray into both nostrils once a day as needed Tyree Phan ASPIRIN ADULT LOW DOSE 81 MG ORAL TABLET DELAYED RELEASE completed One Tab By Mouth Daily - Louis Adler RN MULTIVITAMINS ORAL CAPSULE completed ONE TAB. DAILY - Louis Adler RN METFORMIN HCL 500 MG ORAL TABLET completed 2 tabs in AM - Louis Adler RN amitriptyline 150 mg tablet active 125 mg once a day Tyree Phan gabapentin 300 mg capsule active 2 tablet twice a day Tyree Phan SOCIAL HISTORY Date Observation Value Provider [facility] Marcin gotti MD smoking/tobacco cess ation, patient education and counseling yes Aleta Parker number of years as a smoker 35 a Aleta Parker smoking history, tot al pack/day 1 Aleta Parker cigarette use yes Aleta Parker smoking status Current every day smoker Chalino Parker smoking/tobacco cess ation, patient education and counseling yes Marcin Pedroza MD number of years as a smoker 35 a Marcin Pedroza MD smoking status Current every day smoker S jc Pedroza MD social history reviewed E&M revi ewed - no changes required Marcin Pedroza MD smoking history, tot al pack/day 1 Marcin Pedroza MD cigarette use yes Alexsandra Lofton social history E&M 2ppd x 40 yrs , now down to 1 PPD Smoking History: P atient currently smokes every day. P atient has been counseled to quit. Marcin Pedroza MD social history reviewed E&M revi ewed - no changes required Marcin Pedroza MD smoking/tobacco cess ation, patient education and counseling yes Cherelle Acosta number of years as a smoker 35 a Cherelle aDve smoking history, tot al pack/day 1 Cherelle Dave cigarette use yes Cherelle Dave smoking status Current every day smoker Ilya ortega Dave social history E&M 2ppd x 40 yrs , now down to 1 PPD Smoking History: P atient currently smokes every day. P atient has been counseled to quit. Marcin Pedroza MD social history reviewed E&M revi ewed - no changes required Marcin Pedroza MD smoking/tobacco cess ation, patient education and counseling yes Chastity Mat number of years as a smoker 35 a Chastity Mat smoking history, tot al pack/day 1 Chastity Mat cigarette use yes Chastity Mat smoking status Current every day smoker C amilcar Rivero social history E&M 2ppd x 40 yrs , now down to 1 PPD Smoking History: P atient currently smokes every day. P atient has been counseled to quit. Marcin Pedroza MD social history reviewed E&M revi ewed - no changes required Marcin Pedroza MD smoking/tobacco cess ation, patient education and counseling yes Tyree Phan number of years as a smoker 35 a Tyree Phan smoking history, tot al pack/day 1 Tyree Phan cigarette use yes Tyree house smoking status Current every day smoker Cristopher Phan social history reviewed E&M revi ewed - no changes required Marcin Pedroza MD social history E&M 2ppd x 40 yrs , now down to 1 PPD Smoking History: P atient currently smokes every day. P atient has been counseled to quit. Marcin Pedroza MD smoking/tobacco cess ation, patient education and counseling yes Marcin Pedroza MD smoking status Current every day smoker S jc Pedroza MD social history E&M 2ppd x 40 yrs , now down to 1 PPD Smoking History: P atient currently smokes every day. P atient has been counseled to quit. Marcin Pedroza MD smoking/tobacco cess ation, patient education and counseling yes Anuradha Long number of years as a smoker 35 a Anuradha Ethan smoking history, tot al pack/day 1 Anuradha Ethan cigarette use yes Anuradha hernandez smoking status Current every day smoker William Long social history E&M 2ppd x 40 yrs , now down to 1 PPD Smoking History: P atient currently smokes every day. P atient has been counseled to quit. Austin Patrick MD social history reviewed E&M revi ewed - no changes required Austin Patrick MD smoking/tobacco cess ation, patient education and counseling yes Leigha Rivero number of years as a smoker 35 a Leigha Rivero smoking history, tot al pack/day 1 Leigha Rivero cigarette use yes Leigha Rivero smoking status Current every day smoker William Rivero social history reviewed E&M revi ewed - no changes required Marcin Pedroza MD social history E&M 2ppd x 40 yrs , now down to 1 PPD Smoking History: P atient currently smokes every day. P atient has been counseled to quit. Marcin Pedroza MD smoking/tobacco cess ation, patient education and counseling yes Nai Jace number of years as a smoker 35 a Nai Jace smoking history, tot al pack/day 1 Nai Jace cigarette use yes Nai Jace smoking status Current every day smoker D elisa Jace social history reviewed E&M revi ewed - no changes required Marcin Pedroza MD social history E&M 2ppd x 40 yrs Smoking History: P atient currently smokes every day. P atient has been counseled to quit. Marcin Pedroza MD smoking/tobacco cess ation, patient education and counseling yes Tyree Phan number of years as a smoker 35 a Tyree Phan smoking history, tot al pack/day 1.5-2 Tyree Phan cigarette use yes Tyree Nguyễn enson smoking status Current every day smoker Cristopher Marchdandy Phan number of grandchildren Marcin Pedroza MD social history reviewed E&M revi ewed - no changes required Marcin Pedroza MD social history E&M 2ppd x 40 yrs Smoking History: P atient currently smokes every day. P atient has been counseled to quit. Marcin Pedroza MD smoking/tobacco cess ation, patient education and counseling yes Tyree Phan number of years as a smoker 35 a Tyree Phan smoking history, tot al pack/day 1.5-2 Tyree Phan cigarette use yes Tyree house smoking status Current every day smoker Cristopher Phan social history E&M 2ppd x 40 yrs Smoking History: P atient currently smokes every day. P atient has been counseled to quit. Marcin Pedroza MD social history reviewed E&M revi ewed - no changes required Marcin Pedroza MD smoking/tobacco cess ation, patient education and counseling yes Nai Jace number of years as a smoker 35 a Nai Jace smoking history, tot al pack/day 1.5-2 Nai Jace cigarette use yes Nai Jace smoking status Current every day smoker D acia Jace social history E&M 2ppd x 40 yrs Smoking History: P atient currently smokes every day. P atient has been counseled to quit. Marcin Pedroza MD social history reviewed E&M revi ewed - no changes required Marcin Pedroza MD smoking/tobacco cess ation, patient education and counseling yes Nai Jace number of years as a smoker 35 a Nai Jace smoking history, tot al pack/day 1.5-2 Nai Jace cigarette use yes Nai Jace smoking status Current every day smoker D acia Jace social history E&M 2ppd x 40 yrs Marcin Pedroza MD smoking/tobacco cess ation, patient education and counseling yes Marcin Pedroza MD social history reviewed E&M revi ewed - no changes required Marcin Pedroza MD number of years as a smoker 35 a Tyree Phan smoking history, tot al pack/day 1.5-2 Tyree Sylvester cigarette use yes Tyree house smoking status Current every day smoker Cristopher Phan FUNCTIONAL STATUS Date Observation Value Provider HRA, CV Assess/Plan, Angina (inactive) Management Plan continue current therapy Marcin Pedroza MD HRA, CV Assess/Plan, Angina (inactive) Management Plan continue current therapy Marcin Pedroza MD HRA, CV Assess/Plan, Angina (inactive) Management Plan continue current therapy Marcin Pedroza MD HRA, CV Assess/Plan, Angina (inactive) Management Plan continue current therapy Marcin Pedroza MD HRA, CV Assess/Plan, Angina (inactive) Management Plan continue current therapy Marcin Pedroza MD HRA, CV Assess/Plan, Angina (inactive) Management Plan continue current therapy Marcin Pedroza MD HRA, CV Assess/Plan, Angina (inactive) Management Plan continue current therapy Marcin Pedroza MD HRA, CV Assess/Plan, Angina (inactive) Management Plan continue current therapy Marcin Pedroza MD HRA, CV Assess/Plan, Angina (inactive) Management Plan continue current therapy Austin Patrick MD HRA, CV Assess/Plan, Angina (inactive) Management Plan continue current therapy Marcin Pedroza MD HRA, CV Assess/Plan, Angina (inactive) Management Plan continue current therapy Marcin Pedroza MD HRA, CV Assess/Plan, Angina (inactive) Management Plan antianginal therapy Marcin Pedroza MD HRA, CV Assess/Plan, Angina (inactive) Management Plan continue current therapy Marcin Pedroza MD MENTAL STATUS Date Observation Value Provider energy level yes Shelby Tebid energy level yes Shelby Tebid energy level yes Shelby Tebid energy level yes Shelby Tebid energy level yes Shelby Tebid energy level yes Shelby Tebid energy level yes Shelby Tebid energy level yes Shelby Tebid energy level yes Shelby Tebid energy level yes Shelby Tebid energy level yes Shelby Tebid energy level yes Shelby Tebid energy level yes Shelby Tebid energy level yes Shelby Tebid energy level yes Shelby Tebid energy level yes Shelby Tebid energy level yes Shelby Tebid energy level yes Shelby Tebid energy level yes Etters Tebid energy level yes Etters Tebid energy level yes Etters Tebid energy level yes Etters Tebid energy level yes Etters Tebid energy level yes Etters Tebid energy level yes Shelby Tebid energy level no Shelby Tebid energy level no Shelby Tebid energy level yes Etters Tebid energy level yes Etters Tebid energy level no Etters Tebid energy level yes Etters Tebid energy level no Etters Tebid energy level no Etters Tebid FAMILY HISTORY Family Member Condition Father Family History of Co ngestive Heart Failure: Father Family History of Hy pertension: Father Family History of Di abetes: Mother Family History of Co ngestive Heart Failure: Mother Family History of Hy pertension: Mother Family History of Di abetes: INSURANCE PROVIDERS Payer name Policy type / Coverage type [place] red green party ID [employer] MEDICARE ADVANTAGE PLAN 2 HMO HMO [id number] HEALTHCARE AND FAMILY SERVICES Medicaid 0 [id number] ADVANCE DIRECTIVES Name Date DISCUSSED - NO DECISION MADE TREATMENT PLAN Date Name Performer [id number],S,m ay be related to smoking and COPD, will arrange for her to get nicotine patch Marcin Pedroza MD [id number],S,F INDINGS: R t Common Carotid Artery: mild heterogenous plaque is present. R t Internal Carotid Artery: mild heterogenous plaque is present. R t External Carotid Artery: mild heterogenous plaque is present. R t Vertebral Artery: The right vertebral artery is patent with antegrade flow. L t Common Carotid Artery: mild heterogenous plaque is present. L t Internal Carotid Artery: mild heterogenous plaque is present. L t External Carotid Artery: mild heterogenous plaque is present. L t Vertebral Artery: The left vertebral artery is patent with antegrade flow. - C ONCLUSIONS: 1 . Mild plaque with less than 50% stenosis of the internal carotid arteries bilaterally. Heterogenous. 2 . Vertebral flow is antegrade bilaterally. Marcin Pedroza MD [id number],C, H ad CDVN done was on Eliquis and has stopped tkaing it. will get a heart monitor to determine whether or not she's had any afib. currently not taking eliquis, March 31, 2021 i ntermittent palpitaions occuring, may be habing afib, will repeat juanpablo Cassidy anuary 2022 N O new palpitations June 28, 2023 n o new palpitations. Marcin Pedroza MD [id number],C,s tarted smoking, has not been using CPAP, probably has RV strain causing RBBB. Marcin Pedroza MD [id number],S,restart using CPAP Marcin Pedroza MD [id number],C,P rior cath of mimal CAD, normal LV function from 09/[address] [facility] Marcin Pedroza MD [id number],S,T he Patient was reencouraged to stop smoking. Marcin Pedroza MD [id number],C, H ad CDVN done was on Eliquis and has stopped tkaing it. will get a heart monitor to determine whether or not she's had any afib. currently not taking eliquis, March 31, 2021 i ntermittent palpitaions occuring, may be habing afib, will repeat juanpablo Cassidy anuary 2022 N O new palpitations Marcin Pedroza MD [id number],C, H ome sleep study shows an AHI of 10.2 which is consistent with a diagnosis of mild REBECCA. During the supine position, t he AHI increased to 13.5. Mean oxygen saturation of 91%, with the lowest being 70%. The patient spent 21.6 minutes a t or below 88%. a t present, will get a titration setting done since she has a hx of afib and untreated REBECCA could trigger conversion to afib. July 03, 2020 g ot CPAP and is compliant. The patient is using CPAP on a regular basis. The patient has been benefiting from therapy and should continue use. March 31, 2021 The patient is using CPAP on a regular basis. The patient has been benefiting from therapy and should continue use. October 19, 2022 T he patient is using CPAP on a regular basis. The patient has been benefiting from therapy and should continue use. Marcin Pedroza MD [id number],S, e mphasema noted on ct C onclusions: Although there is airway obstruction and a diffusion defect suggesting emphysema, the absence of overinflation is inconsistent w ith that diagnosis. P ulmonary Function Diagnosis: M inimal Obstructive Airways Disease M oderately severe Diffusion Defect still smoking iPPD. down from 2PPD. July 03, 2020 Ideally should be seen by a pulmnologist with Hx of emphysema. October 19, 2022 N otes her SOB is at baseline. Attributes it to COPD. COntinues smoking. Sees pulmonary ast [facility] Marcin Pedroza MD [id number],C,Under evaluat ion of endocrine Marcin Pedroza MD [id number],C,Recheck US, L ipids followed by PCP Marcin Pedroza MD [id number],S,H ad covid in october not vaccinated. SOB lost 17 lbs. Had bilateral pneeumonia. Was on steroids Will check PFTs Marcin Pedroza MD [id number],C, 1 ppd. The Patient was reencouraged to stop smoking. Marcin Pedroza MD [id number],S, Marcin jennings MD [id number],C, H ome sleep study shows an AHI of 10.2 which is consistent with a diagnosis of mild REBECCA. During the supine position, t he AHI increased to 13.5. Mean oxygen saturation of 91%, with the lowest being 70%. The patient spent 21.6 minutes a t or below 88%. a t present, will get a titration setting done since she has a hx of afib and untreated REBECCA could trigger conversion to afib. July 03, 2020 g ot CPAP and is compliant. The patient is using CPAP on a regular basis. The patient has been benefiting from therapy and should continue use. March 31, 2021 The patient is using CPAP on a regular basis. The patient has been benefiting from therapy and should continue use. Marcin Pedroza MD [id number],C,F ebruary 2021 CONCLUSIONS: 1 . Normal left ventricular systolic function. Normal left ventricular size. Normal left ventricular wall thickness. There is E to A w ave reversal consistent with impaired LV relaxation. E/E': 7.2 Left ventricular ejection fraction is measured at 65 %. 2 . Normal right ventricular size. Normal right ventricular systolic function. 3 . No significant valvular abnormalities. s tress test 06/21/21 C ONCLUSIONS: 1 . Normal resting ECG. 2 . Normal Exercise Moshe protocol ECG with no ischemic ST or T changes. There is no ECG evidence of myocardial ischemia w ith exercise. 3 . Normal left ventricle size. 4 . Left Ventricular Ejection Fraction is 56 %. TID: 0.82. 5 . Normal myocardial perfusion imaging with no evidence of ischemia or scar. S had cath done in 2018 where she had 30% in OM2 20% LAD at present I doubt her sx are CAD related Marcin Pedroza MD [id number],C,I mpression: Multiple bilateral TI-RADS 4 thyroid nodules are below the follow-up threshold of 1 cm. Will be seeing erma martinez send copy of report Marcin Pedroza MD [id number],C, H ad CDVN done was on Eliquis and has stopped tkaing it. will get a heart monitor to determine whether or not she's had any afib. currently not taking eliquis, March 31, 2021 i ntermittent palpitaions occuring, may be habing afib, will repeat montor November 19, 2021 Marcin Pedroza MD [id number],C, TSH 0.707 uIU/mL 0.450-4.500 Thyroxine (T4) 8.4 ug/dL 4.5-12.0 T3 Uptake 26 % 24-39 Free Thyroxine Index 2.2 1.2-4.9 Needs to see endocrine h ad thyroid nodules on carotid US, was advised back in August Marcin Pedroza MD [id number],C, E cho showed EF 60% P rior cath showed minimal CAD. has reduced smoking to 1PPD. Stress nuc 10/14/19 1 . Normal myocardial perfusion imaging after vasodilator stress with Regadenoson. 2 . Normal left ventricular systolic function with a calculated ejection fraction of 73%. 3 . No obvious significant scintigraphic evidence of myocardial ischemia or scar. Marcin Pedroza MD [id number],C, H ome sleep study shows an AHI of 10.2 which is consistent with a diagnosis of mild REBECCA. During the supine position, t he AHI increased to 13.5. Mean oxygen saturation of 91%, with the lowest being 70%. The patient spent 21.6 minutes a t or below 88%. a t present, will get a titration setting done since she has a hx of afib and untreated REBECCA could trigger conversion to afib. July 03, 2020 g ot CPAP and is compliant. The patient is using CPAP on a regular basis. The patient has been benefiting from therapy and should continue use. March 31, 2021 The patient is using CPAP on a regular basis. The patient has been benefiting from therapy and should continue use. Marcin Pedroza MD [id number],C, H ad CDVN done was on Eliquis and has stopped tkaing it. will get a heart monitor to determine whether or not she's had any afib. currently not taking eliquis, March 31, 2021 i ntermittent palpitaions occuring, may be habing afib, will repeat juanpablo Pedroza MD [id number],C,e mphasema noted on ct C onclusions: Although there is airway obstruction and a diffusion defect suggesting emphysema, the absence of overinflation is inconsistent w ith that diagnosis. P ulmonary Function Diagnosis: M inimal Obstructive Airways Disease M oderately severe Diffusion Defect still smoking iPPD. down from 2PPD. July 03, 2020 I deally should be seen by a pulmnologist with Hx of emphysema. Marcin Pedroza MD [id number],C,c heck stress and echo may need cath sx consistent with angina Marcin Pedroza MD Cardiology:right sided mystectom y. Marcin Pedroza MD Cardiology:Check ech o and may need repeat cardiac cath done. Reviewed with pt. Marcin Pedroza MD Cardiology: H ad CDVN done was on Eliquis and has stopped tkaing it. will get a heart monitor to determine whether or not she's had any afib. currently not taking eliquis, March 31, 2021 intermittent palpitaions occuring, may be habing afib, will repeat juanpablo Cassidy an2022 N O new palpitations June 28, 2023 n o new palpitations. Marcin ePdroza MD Cardiology: H er updated medication list for this problem includes: Diltiazem Hcl 30 Mg Tablet (Diltiazem hcl) ..... Take 1 tablet by mouth three times daily Aspirin 81 Mg Tablet,delayed Release (dr/ec) (Aspirin) ..... 1 tablet by mouth once a day BP today: 106/69 P rior BP: 120/65 (10/04/2023) Labs Reviewed: C reat: 0.53 (07/23/2020) C hol: 105 (07/23/2020) HDL: 41 (07/23/2020) LDL: 28 (07/23/2020) T (07/23/2020) Marcin Pedroza MD Cardiology: s tarted smoking, has not been using CPAP, probably has RV strain causing RBBB. October 04, 2023 s tarted using CPAP r evisited issues of smoking Marcin Pedroza MD Cardiology: P rior cath of [facility] CAD, normal LV function from 09/[address] [facility] October 04, 2023 S he had echo 07/24 C ONCLUSIONS: 1 . Septal `bounce` consistent with IVCD or bundle branch block. Normal left ventricular systolic function. Normal left v entricular size. Normal left ventricular wall thickness. There is E to A wave reversal consistent with impaired LV relaxation. E/E': 4.1 Left ventricular ejection fraction is measured at 60 %. 2 . Normal right ventricular size. Normal right ventricular systolic function. 3 . No significant valvular abnormalities. December 27, 2024 S till has some SOB arrange for some testing. Lexiscan stress and echo Marcin Pedroza MD Cardiology: r estart using CPAP October 04, 2023 r estarted using CPAP Marcin Pedroza MD Cardiology: m ay be related to smoking and COPD, will arrange for her to get nicotine patch October 04, 2023 s uspect more sx related to smoking and COPD w ill try albuterol inhaler H er updated medication list for this problem includes: Diltiazem Hcl 30 Mg Tablet (Diltiazem hcl) ..... Take 1 tablet by mouth three times daily Aspirin 81 Mg Tablet,delayed Release (dr/ec) (Aspirin) ..... 1 tablet by mouth once a day Marcin Pedroza MD Cardiology: P rior cath of [facility] centeral CAD, normal LV function from 09/[address] [facility] October 04, 2023 S he had echo 07/24 C ONCLUSIONS: 1 . Septal `bounce` consistent with IVCD or bundle branch block. Normal left ventricular systolic function. Normal left v entricular size. Normal left ventricular wall thickness. There is E to A wave reversal consistent with impaired LV relaxation. E/E': 4.1 Left ventricular ejection fraction is measured at 60 %. 2 . Normal right ventricular size. Normal right ventricular systolic function. 3 . No significant valvular abnormalities. Marcin Pedroza MD Cardiology: s tarted smoking, has not been using CPAP, probably has RV strain causing RBBB. October 04, 2023 s tarted using CPAP r evisited issues of smoking Marcin Pedroza MD Cardiology:may be re lated to smoking and COPD, will arrange for her to get nicotine patch Marcin Pedroza MD Cardiology:FINDINGS: R t Common Carotid Artery: mild heterogenous plaque is present. R t Internal Carotid Artery: mild heterogenous plaque is present. R t External Carotid Artery: mild heterogenous plaque is present. R t Vertebral Artery: The right vertebral artery is patent with antegrade flow. L t Common Carotid Artery: mild heterogenous plaque is present. L t Internal Carotid Artery: mild heterogenous plaque is present. L t External Carotid Artery: mild heterogenous plaque is present. L t Vertebral Artery: The left vertebral artery is patent with antegrade flow. - C ONCLUSIONS: 1 . Mild plaque with less than 50% stenosis of the internal carotid arteries bilaterally. Heterogenous. 2 . Vertebral flow is antegrade bilaterally. Marcin Pedroza MD Cardiology: H ad CDVN done was on Eliquis and has stopped tkaing it. will get a heart monitor to determine whether or not she's had any afib. currently not taking eliquis, March 31, 2021 intermittent palpitaions occuring, may be habing afib, will repeat juanpablo renee 2022 N O new palpitations June 28, 2023 n o new palpitations. Marcin Pedroza MD Cardiology:started s moking, has not been using CPAP, probably has RV strain causing RBBB. Marcin Pedroza MD Cardiology:restart using CPAP Sa seng Pedroza MD Cardiology:Prior cat h of mimal CAD, normal LV function from 09/2106 [facility] Marcin Pedroza MD Cardiology:The Patie nt was reencouraged to stop smoking. Marcin Pedroza MD Cardiology: H ad CDVN done was on Eliquis and has stopped tkaing it. will get a heart monitor to determine whether or not she's had any afib. currently not taking eliquis, March 31, 2021 intermittent palpitaions occuring, may be habing afib, will repeat juanpablo quezadauary 2022 N O new palpitations Marcin Pedroza MD Cardiology: H ome sleep study shows an AHI of 10.2 which is consistent with a diagnosis of mild REBECCA. During the supine position, t he AHI increased to 13.5. Mean oxygen saturation of 91%, with the lowest being 70%. The patient spent 21.6 minutes a t or below 88%. a t present, will get a titration setting done since she has a hx of afib and untreated REBECCA could trigger conversion to afib. July 03, 2020 g ot CPAP and is compliant. The patient is using CPAP on a regular basis. The patient has been benefiting from therapy and should continue use. March 31, 2021 T he patient is using CPAP on a regular basis. The patient has been benefiting from therapy and should continue use. October 19, 2022 T he patient is using CPAP on a regular basis. The patient has been benefiting from therapy and should continue use. Marcin Pedroza MD Cardiology: e mphasema noted on ct C onclusions: Although there is airway obstruction and a diffusion defect suggesting emphysema, the absence of overinflation is inconsistent w ith that diagnosis. P ulmonary Function Diagnosis: M inimal Obstructive Airways Disease M oderately severe Diffusion Defect still smoking iPPD. down from 2PPD. July 03, 2020 I deally should be seen by a pulmnologist with Hx of emphysema. October 19, 2022 N otes her SOB is at baseline. Attributes it to COPD. COntinues smoking. Sees pulmonary ast Kasandra Pedroza MD Cardiology:Under evaluation of e ndocrine Marcin Pedroza MD Cardiology:Recheck US, Lipids fo llowed by PCP Marcin Pedroza MD Cardiology:Had covid in october not vaccinated. SOB lost 17 lbs. Had bilateral pneeumonia. Was on steroids Will check PFTs Marcin Pedroza MD Cardiology: 1 ppd. The Patient was reencouraged to stop smoking. Marcin Pedroza MD Cardiology Marcin Pedroza MD Cardiology: H ome sleep study shows an AHI of 10.2 which is consistent with a diagnosis of mild REBECCA. During the supine position, t he AHI increased to 13.5. Mean oxygen saturation of 91%, with the lowest being 70%. The patient spent 21.6 minutes a t or below 88%. a t present, will get a titration setting done since she has a hx of afib and untreated REBECCA could trigger conversion to afib. July 03, 2020 g ot CPAP and is compliant. The patient is using CPAP on a regular basis. The patient has been benefiting from therapy and should continue use. March 31, 2021 T he patient is using CPAP on a regular basis. The patient has been benefiting from therapy and should continue use. Marcin Pedroza MD Cardiology:November 19, 2021 CONCLUSIONS: 1 . Normal left ventricular systolic function. Normal left ventricular size. Normal left ventricular wall thickness. There is E to A wave reversal consistent with impaired LV relaxation. E/E': 7.2 Left ventricular ejection fraction is measured at 65 %. 2 . Normal right ventricular size. Normal right ventricular systolic function. 3 . No significant valvular abnormalities. s tress test 06/21/21 C ONCLUSIONS: 1 . Normal resting ECG. 2 . Normal Exercise Moshe protocol ECG with no ischemic ST or T changes. There is no ECG evidence of myocardial ischemia w ith exercise. 3 . Normal left ventricle size. 4 . Left Ventricular Ejection Fraction is 56 %. TID: 0.82. 5 . Normal myocardial perfusion imaging with no evidence of ischemia or scar. S had cath done in 2018 where she had 30% in OM2 20% LAD at present I doubt her sx are CAD related Marcin Pedroza MD Cardiology:Impressio n: Multiple bilateral TI-RADS 4 thyroid nodules are below the follow-up threshold of 1 cm. Will be seeing erma martinez send copy of report Marcin Pedroza MD Cardiology: H ad CDVN done was on Eliquis and has stopped tkaing it. will get a heart monitor to determine whether or not she's had any afib. currently not taking eliquis, March 31, 2021 intermittent palpitaions occuring, may be habing afib, will repeat montor November 19, 2021 Marcin Pedroza MD Cardiology: TSH 0.70 7 uIU/mL 0.450-4.500 Thyroxine (T4) 8.4 ug/dL 4.5-12.0 T3 Uptake 26 % 24-39 Free Thyroxine Index 2.2 1.2-4.9 Needs to see endocrine h ad thyroid nodules on carotid US, was advised back in August Marcin Pedroza MD Cardiology: E cho showed EF 60% P rior cath showed minimal CAD. has reduced smoking to 1PPD. Stress nuc 10/14/19 1 . Normal myocardial perfusion imaging after vasodilator stress with Regadenoson. 2 . Normal left ventricular systolic function with a calculated ejection fraction of 73%. 3 . No obvious significant scintigraphic evidence of myocardial ischemia or scar. Marcin Pedroza MD Cardiology: H ome sleep study shows an AHI of 10.2 which is consistent with a diagnosis of mild REBECCA. During the supine position, t he AHI increased to 13.5. Mean oxygen saturation of 91%, with the lowest being 70%. The patient spent 21.6 minutes a t or below 88%. a t present, will get a titration setting done since she has a hx of afib and untreated REBECCA could trigger conversion to afib. July 03, 2020 g ot CPAP and is compliant. The patient is using CPAP on a regular basis. The patient has been benefiting from therapy and should continue use. March 31, 2021 T he patient is using CPAP on a regular basis. The patient has been benefiting from therapy and should continue use. Marcin Pedroza MD Cardiology: H ad CDVN done was on Eliquis and has stopped tkaing it. will get a heart monitor to determine whether or not she's had any afib. currently not taking eliquis, March 31, 2021 intermittent palpitaions occuring, may be habing afib, will repeat juanpablo Pedroza MD Cardiology:emphasema noted on ct C onclusions: Although there is airway obstruction and a diffusion defect suggesting emphysema, the absence of overinflation is inconsistent w ith that diagnosis. P ulmonary Function Diagnosis: M inimal Obstructive Airways Disease M oderately severe Diffusion Defect still smoking iPPD. down from 2PPD. July 03, 2020 I deally should be seen by a pulmnologist with Hx of emphysema. Marcin Pedroza MD Cardiology:check str ess and echo may need cath sx consistent with angina Marcin Pedroza MD Cardiology:CHECK US AND LIPID PA TIARA Pedroza MD Cardiology:stopped a ldactone. T he following medications were removed from the medication list: Spironolactone 25 Mg Oral Tablet (Spironolactone) ..... One tab. daily Her updated medication list for this problem includes: Aspirin Adult Low Dose 81 Mg Oral Tablet Delayed Release (Aspirin) ..... One tab by mouth daily Diltiazem Hcl 30 Mg Oral Tablet (Diltiazem hcl) ..... 1 tab three times a day Marcin Pedroza MD Cardiology: H ome sleep study shows an AHI of 10.2 which is consistent with a diagnosis of mild REBECCA. During the supine position, t he AHI increased to 13.5. Mean oxygen saturation of 91%, with the lowest being 70%. The patient spent 21.6 minutes a t or below 88%. a t present, will get a titration setting done since she has a hx of afib and untreated REBECCA could trigger conversion to afib. July 03, 2020 g ot CPAP and is compliant. The patient is using CPAP on a regular basis. The patient has been benefiting from therapy and should continue use. Marcin Pedroza MD Cardiology:1 ppd. Th e Patient was reencouraged to stop smoking. Marcin Pedroza MD Cardiology:Had CDVN done was on Eliquis and has stopped tkaing it. will get a heart monitor to determine whether or not she's had any afib. currently not taking eliquis, Marcin Pedroza MD Cardiology:On Synjardi Marcin Pedroza MD Cardiology: C onclusions: Although there is airway obstruction and a diffusion defect suggesting emphysema, the absence of overinflation is inconsistent w ith that diagnosis. P ulmonary Function Diagnosis: M inimal Obstructive Airways Disease M oderately severe Diffusion Defect still smoking iPPD. down from 2PPD. July 03, 2020 I deally should be seen by a pulmnologist with Hx of emphysema. Marcin Pedroza MD Cardiology: E cho showed EF 60% P rior cath showed minimal CAD. has reduced smoking to 1PPD. Stress nuc 10/14/19 1 . Normal myocardial perfusion imaging after vasodilator stress with Regadenoson. 2 . Normal left ventricular systolic function with a calculated ejection fraction of 73%. 3 . No obvious significant scintigraphic evidence of myocardial ischemia or scar. Marcin Pedroza MD Cardiology:Home slee p study shows an AHI of 10.2 which is consistent with a diagnosis of mild REBECCA. During the supine position, t he AHI increased to 13.5. Mean oxygen saturation of 91%, with the lowest being 70%. The patient spent 21.6 minutes a t or below 88%. a t present, will get a titration setting done since she has a hx of afib and untreated REBECCA could trigger conversion to afib. Marcin Pedroza MD Cardiology:Conclusio ns: Although there is airway obstruction and a diffusion defect suggesting emphysema, the absence of overinflation is inconsistent w ith that diagnosis. P ulmonary Function Diagnosis: M inimal Obstructive Airways Disease M oderately severe Diffusion Defect still smoking iPPD. down from 2PPD. Marcin Pedroza MD Cardiology:ECHO CONC LUSIONS: 10/2019 1 . Normal left ventricular systolic function. Normal left ventricular size. Normal left ventricular wall thickness. There is E to A w ave reversal consistent with impaired LV relaxation. E/E': 6.0. Left ventricular ejection fraction is measured at 60 %. 2 . Normal right ventricular size. Normal right ventricular systolic function. 3 . There is trace physiologic tricuspid valve regurgitation. Marcin Pedroza MD Cardiology:Echo show ed EF 60% P rior cath showed minimal CAD. has reduced smoking to 1PPD. Stress nuc 10/14/19 1 . Normal myocardial perfusion imaging after vasodilator stress with Regadenoson. 2 . Normal left ventricular systolic function with a calculated ejection fraction of 73%. 3 . No obvious significant scintigraphic evidence of myocardial ischemia or scar. Marcin Pedroza MD Cardiology Austin Patrick MD Cardiology Austin Patrick MD Cardiology Austin Patrick MD Cardiology Austin Patrick MD Cardiology follow up : B P today: 138/80 P rior BP: 129/73 (08/21/2017) Her updated medication list for this problem includes: Toprol Xl 50 Mg Oral Tablet Extended Release 24 Hour (Metoprolol succinate) ..... One tab daily Aspirin Adult Low Dose 81 Mg Oral Tablet Delayed Release (Aspirin) ..... One tab by mouth daily Orders: 9 9215 HIGH Complex (CPT-32367) C omplete Echo (CPT-46127) H olter Monitor 24 Hr (CPT-74953) Marcin Pedroza MD Cardiology follow up : H as been noncompliant with Toprol XL. Restarted. Orders: E KG (CPT-33274) 9 9215 HIGH Complex ([id number]) C omplete Echo (CPT-54645) H olter Monitor 24 Hr ([id number]) Her updated medication list for this problem includes: Toprol Xl 50 Mg Oral Tablet Extended Release 24 Hour (Metoprolol succinate) ..... One tab daily Isosorbide Mononitrate Er 30 Mg Oral Tablet Extended Release 24 Hour (Isosorbide mononitrate) ..... One tab. daily Aspirin Adult Low Dose 81 Mg Oral Tablet Delayed Release (Aspirin) ..... One tab by mouth daily Marcin Pedroza MD Cardiology follow up:Recheck ech o. Marcin Pedroza MD Cardiology follow up : H er updated medication list for this problem includes: Aspirin Adult Low Dose 81 Mg Oral Tablet Delayed Release (Aspirin) ..... One tab by mouth daily Metformin Hcl 500 Mg Oral Tablet (Metformin hcl) ..... 2 tabs in am Marcin Pedroza MD Cardiology follow up :Has cut down to 1PPD. Encourage cessation. Marcin Pedroza MD Cardiology follow up:Negative AB I. Negative DVT study. Marcin Pedroza MD Cardiology Marcin Pedroza MD Cardiology: H er updated medication list for this problem includes: Aspirin Adult Low Dose 81 Mg Oral Tablet Delayed Release (Aspirin) ..... One tab by mouth daily Metformin Hcl 500 Mg Oral Tablet (Metformin hcl) ..... 2 tabs in am Marcin Pedroza MD Cardiology: T he following medications were removed from the medication list: Toprol Xl 25 Mg Oral Tablet Extended Release 24 Hour (Metoprolol succinate) ..... One tab daily Her updated medication list for this problem includes: Aspirin Adult Low Dose 81 Mg Oral Tablet Delayed Release (Aspirin) ..... One tab by mouth daily Marcin Pedroza MD Cardiology: S /p ECP. Has noted improvement in chesrt discomfort. EF 60% 05/19/2017. Marcin Pedroza MD Cardiology:Has been noncompliant with Toprol XL. Reinstructed. Marcin Pedroza MD Cardiology:Normal bilateral SEAN 03/19/17, Marcin Pedroza MD Cardiology:S/p ECP. Has noted improvement in chesrt discomfort. Need to get echo to assess LV fxn. Marcin Pedroza MD Cardiology:1ppd. Ramsey satinathan advised. At least to reduce down to about half ppd within a month. Marcin Pedroza MD Cardiology:Check arterial and ve nous study. Marcin Pedroza MD Cardiology:Neg REBECCA workup. Joy Pedroza MD Cardiology follow up Marcin herbert MD Cardiology follow up Marcin herbert MD Cardiology follow up :This patient?s angina is disabling and in my opinion is not readily amenable to surgical intervention by PTCA or cardiac bypass because the patient's coronary anatomy is not readily amenable to such procedures. Marcin Pedroza MD Cardiology follow up:No afib on tele. Rare PVC. Marcin Pedroza MD Cardiology hospital followu p:Stopped eating chocolate daily, noted some improvement in palpitations but still experiences them daily. Try 24-hour holter since she has symptoms daily. Marcin Pedroza MD Cardiology hospital followu p Sa seng Pedroza MD Cardiology hospital followu p Sa seng Pedroza MD Cardiology hospital followu p:May have microvascular disease. Start imdur 30 mg daily. Marcin Pedroza MD Date Name Stress Regadenoson Complete Echo EKG Complete Echo Carotid Duplex Bilat eral Sleep Study Titratio n 6 minute walk test Ambulatory Oximetry DLCO - 69541 FRC - 13051 FVC - 92842 Stress Exercise Card iolite Complete Echo Thyroid Ultrasound Carotid Duplex Bilat eral TSH, free T4, total T3 LIPID PANEL COMPREHENSIVE METABO LIC PANEL, W/EGFR Holter Monitor 48 hr HEPATIC FUNCTION CUELLAR EL THYROID PANEL WITH T SH, 3RD GENERATION HEPATIC FUNCTION CUELLAR EL THYROID PANEL WITH T SH, 3RD GENERATION Stress Regadenoson Complete Echo 6 minute walk test Ambulatory Oximetry DLCO - 75807 FRC - 00683 FVC - 78575 Holter Monitor 48 hr Holter Monitor 24 Hr Complete Echo Venous Doppler Bilat eral LE Arterial Duplex Bi-L ower EX Complete Echo Sleep Study Home ECP - Medicare Holter Monitor 24 Hr Cardiac Cath - Left - GC HISTORY OF PROCEDURES Procedure Date Procedure Name Provider Procedure Notes S tatus Complex e/m visit add on Marcin Pedroza MD completed EKG Marcin Pedroza MD completed EKG Marcin Pedroza MD completed EKG Marcin Pedroza MD completed EKG Marcin Pedroza MD completed 6 minute walk test Marcin welch MD completed Regadenoson, 4 units Marcin herbert MD completed Cardiolite, 2 units Marcin jennings MD completed SPECT Images Marcin Pedroza MD completed Stress EKG Marcin Pedroza MD completed FVC / MVV with bronchodilator - 84707 Marcin Pedroza MD completed BLOOD COUNT HEMOGLOBIN Marcin Pedroza MD completed FRC - 37618 Marcin Pedroza MD completed SpO2 w/o 6min walk/titration Marcin Pedroza MD completed DLCO - 51176 Marcin Pedroza MD completed EKG Marcin Pedroza MD completed Holter, 24 or 48 Austin Patrick MD com pleted EKG Austin Patrick MD completed ZIO Holter Hookup Marcin tong MD completed EKG Marcin Pedroza MD completed EKG Marcin Pedroza MD completed SNOMED-CT: 769689529 999515 Current Medications Documented Marcin Pedroza MD completed EKG Marcin Pedroza MD completed SNOMED-CT: 054505326 748621 Current Medications Documented Marcin Pedroza MD completed EKG Maricn Pedroza MD completed SNOMED-CT: 620376540 510325 Current Medications Documented Marcin Pedroza MD completed Holter, 24 or 48 Marcin gotti MD completed EKG Marcin Pedroza MD completed SNOMED-CT: 865899985 877274 Current Medications Documented Marcin Pedroza MD completed EKG Marcin Pedroza MD completed SNOMED-CT: [id number] 012587 Current Medications Documented Marcin Pedroza MD completed
--- OUTSIDE RECORDS SUMMARY | 2025-01-15 13:54 | XMS_ITS | Encounter Summary ---
Author Organization [employer] Address [address] [place] [address] Care Team Providers Care Culinary Arts Instructor Name Role Phone Radha Castillo MD Primary Care Provider [phone] Encounter Details Date Type Department Care Team (Late st Contact Info) Description 06/27/2006 Outpatient Historical HIS [facility] Radha Landrum MD [address] [place] [address] Other Follow-Up Examination (Primary Dx) Social History Tobacco Use Types Packs/Day Years Used Date Smoking Tobacco: Never Assessed Comments Unknown Sex and Gender Information Value Date Recorded Sex Assigned at Not on file 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
--- OUTSIDE RECORDS SUMMARY | 2025-01-15 13:54 | XMS_ITS | Encounter Summary ---
Author Organization [employer] Address 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
--- OUTSIDE RECORDS SUMMARY | 2025-01-15 13:54 | XMS_ITS | Referral Summary ---
Author Organization [facility] Address [address] [place] [address] Care Team Providers Care Dance Hall Host/Hostess Name Role Phone Boris Segundo MD Primary Care Provider Daniel Paulino MD Unavailable Chicho Brannon MD Unavailable [phone] Encounters Date Type Department Care Team Description 12/09/2024 Telephone [facility] [address] [place] [address] Vira Campos. 11/25/2024 3:13 PM MATERIAL STRESS TESTER Anesthesia Event [facility] Endoscopy at [facility] [address] [place] [address] Darian Riddle MD Floro, Geoffrey Michael, CRNA 11/25/2024 2:45 PM MATERIAL STRESS TESTER - 11/25/2024 3:30 PM MATERIAL STRESS TESTER Surgery [facility] Endoscopy at [facility] [address] [place] [address] Chicho Brannon MD SIGMOIDOSCOPY 11/25/2024 1:25 PM MATERIAL STRESS TESTER - 11/25/2024 3:33 PM MATERIAL STRESS TESTER Hospital Encounter [facility] Endoscopy at [facility] [address] [place] [address] Chicho Brannon MD Discharge Disposition: Discharge to home or self care 11/15/2024 Telephone [facility] [address] [facility] [address] [place] [address] Tiffany Gomez BS Scheduling Appointments (Confirm Flex Sig ) 11/15/2024 Telephone [facility] [address] [facility] 2nd Floor [address] [place] [address] Bridget Francis RMA Flexible Sigmoidoscopy 11/01/2024 Telephone [facility] [address] [facility] 2nd Floor [address] [place] [address] Lynne Nuñez RMA Appointment 10/22/2024 Telephone [facility] [address] [place] [address] Bridget Francis, ERNESTINE Flexible Sigmoidoscopy from Last 3 Months Allergies Active Allergy Reactions Criticality Noted Date Comments Oxaliplatin Dizziness Low 04/12/2019 Medications ACCU-CHEK ANGELIC PLUS TEST STRP strip U BID UTD 3 8 Active amitriptyline (ELAVIL) 100 mg tablet Take 1 tablet (100 mg total) by mouth nightly Active amitriptyline (ELAVIL) 25 mg tablet Take 1 tablet (25 mg total) by mouth nightly Take with 100 mg tablet for total dose of 125mg Active fluticasone propionate (FLONASE) 50 mcg/actuation nasal spray Administer 2 sprays into each nostril as needed Active albuterol HFA (PROVENTIL HFA,VENTOLIN HFA,PROAIR HFA) 90 mcg/actuation inhalerIndicatio ns:Chronic Obstructive Pulmonary Disease Inhale 2 puffs every 4 (four) hours as needed Active ibuprofen (ADVIL,MOTRIN) 600 mg tablet Take 1 tablet (600 mg total) by mouth every 6 (six) hours as needed Active blood-glucose meter misc Accu-Chek Angelic Plus Meter Active lancets misc Accu-Chek Softclix Lancets U BID Active multivitamin capsule Take 1 capsule by mouth every morning Active dilTIAZem (CARDIZEM) 30 mg tablet Take 1 tablet (30 mg total) by mouth every morning Active Bydureon BCise 2 mg/0.85 mL auto-injector INJ 0.85 ML SC WEEKLY 0 Active budesonide-glyco pyr-formoterol (Breztri Aerosphere) 160-9-4.8 mcg/actuation HFA aerosol inhaler Active glimepiride (AMARYL) 1 mg tablet Take 1 tablet (1 mg total) by mouth daily with breakfast 3 Active rosuvastatin (CRESTOR) 40 mg tablet Take 1 tablet (40 mg total) by mouth daily 3 Active sodium, potassium & mag sulfates (SUPREP BOWEL KIT) 17.5-3.13-1.6 gram recon solnIndications: Bowel Evacuation Drink 1 bottle at 6pm the night before procedure. Drink 2nd bottle 4 hours prior to leaving home. 354 mL 3 Active Additional Information Patient not taking.Reported on 10/03/2023 busPIRone (BUSPAR) 10 mg tablet Take 1 tablet (10 mg total) by mouth 4 Active nicotine (NICODERM CQ) [address] 1 patch on the skin daily 4 Active gabapentin (NEURONTIN) 300 mg capsule TAKE 2 CAPSULES(600 MG) BY MOUTH THREE TIMES DAILY 180 capsule 6 4 Active buPROPion SR (WELLBUTRIN SR) 150 mg 12 hr tablet Take 1 tablet (150 mg total) by mouth every morning 4 Active losartan (COZAAR) 25 mg tablet 4 Active Synjardy XR 12.5-1,000 mg tablet, IR & ER, biphasic 24hr Take 2 tablets by mouth daily 4 Active Active Problems Problem Noted Date Diagnosed Date Retained ureteral stent 12/01/2020 Overview (12/01/2020): Possible retained ureteral stent, Unable to reach patient for ureteral stent removal. If patient presents to your facility please call Urology at [phone] History of rectal cancer 12/05/2019 Overview (12/05/2019): Added automatically from request for surgery [id number] Screen for colon cancer 10/04/2019 Overview (10/04/2019): Added automatically from request for surgery [id number] Calculus of ureter 04/21/2019 Right ureteral stone 04/21/2019 Rectal cancer 09/11/2018 Cancer Staging:Clinical stage from 09/11/2018:Stage IIIB(cT3, cN1b, cM0) - Signed by Daniel Paulino MD on 09/18/2018 Pulmonary nodules Immunizations Immunization Administration Dates Next Due Influenza, Quadrivalent, Split, Intramuscular Social History Tobacco Use Types Packs/Day Years Used Date Smoking Tobacco: Every Day Cigarettes 1.5 47.3 Started: 1977 Passive Smoke Exposure: Never Smokeless Tobacco: Never Tobacco Cessation:Ready to Q uit: Not Asked; Counseling Given: Not Answered Comments:Pt trying the patch Alcohol Use Standard Drinks/Week Comments No 0 (1 standard drink = 0.6 oz pur e alcohol) AUDIT-C Answer Date Recorded Q1: How often do you have a drink containing alcohol? Never 11/25/2024 Q2: How many drinks containi ng alcohol do you have on a typical day when you are drinking? Patient does not drink Q3: How often do you have si x or more drinks on one occasion? Never 11/25/2024 Personal Safety Answer Date Recorded Have you ever been in or are you currently in a harmful physical or emotional relationship or is someone making you feel afraid or unsafe? Denies 11/25/2024 Comments No Sex and Gender Information Value Date Recorded Sex Assigned at Not on file Legal Sex Female 11:04 PM MATERIAL STRESS TESTER Gender Identity Not on file Sexual Orientation Not on file Last Filed Vital Signs Vital Sign Reading Time Taken Comments Blood Pressure 121/69 11/25/2024 3:25 PM MATERIAL STRESS TESTER Pulse 98 11/25/2024 3:25 PM MATERIAL STRESS TESTER Temperature 36.4 C (97.6 F) 11/25/2024 3:25 PM MATERIAL STRESS TESTER Respiratory Rate 16 11/25/2024 3:25 PM MATERIAL STRESS TESTER Oxygen Saturation 95% 11/25/2024 3:25 PM MATERIAL STRESS TESTER Inhaled Oxygen Concentration - - Weight 59 kg (130 lb) 11/25/2024 2:24 PM MATERIAL STRESS TESTER Height 162.6 cm (5' 4 ) 11/25/2024 2:24 PM MATERIAL STRESS TESTER Body Mass Index 22.31 11/25/2024 2:24 PM MATERIAL STRESS TESTER Plan of Treatment Not on file Medical Devices Implanted Type Area Meter Inspector Device Identifier Shelf Expiration Date Model / Serial / Lot Med Comp Dignity Port Implanted:Qty : 1 on 10/10/2018 at [facility] Catheter Right: Chest Medcomp [id number] 08/31/2022 / [id number] / [id number] Explanted Type Area Meter Inspector Device Identifier Shelf Expiration Date Model / Serial / Lot [employer] [id number] Inlay Corwin 6fr 26cm Pusher Fluoro Marker Atraumatic Insertion Latex Free - [id number] Implanted:Qty: 1 on 06/18/2019 by Kyle Robison MD at [facility] Explanted:Qty: 1 on 11/21/2019 Right: Ureter [employer] 08/29/2023 [id number] / / Description:Removed per 11/21 MRI Procedures Procedure Name Priority Date/Time Associated Diagnosis Comments FLEXIBLE SIGMOIDOSCOPY 3:18 PM MATERIAL STRESS TESTER SIGMOIDOSCOPY 11/25/2024 3:13 PM MATERIAL STRESS TESTER History of rectal cancer COLONOSCOPY 07/10/2023 6:32 AM CDT from Last 3 Months or Most Recently Relevant to Health Maintenance Results * Flexible Sigmoidoscopy (11/25/2024 3:18 PM MATERIAL STRESS TESTER) Anatomical Region Laterality Modality Other Narrative Procedure Note Chicho Barnnon MD - 11/25/2024 3:18 PM CST [facility] Patient Name: Priya Puga Procedure Date: 11/25/2024 3:18 PM Date of : 1960 Admit Type: Outpatient Age: 64 Gender: Female Attending MD: Chicho Brannon M.D. Room: [facility] 02 Note Status: Finalized Procedure: Flexible Sigmoidoscopy Indications: Anal hemorrhage, Follow up for non-operative management of rectal cancer Referring MD: Providers: Chicho Brannon M.D. Medicines: None Complications: No immediate complications. Estimated Blood Loss: Estimated blood loss: none. Procedure: The benefits, risks, and alternatives to theprocedure and sedation were discussed and informed consentwas obtained. The [id number] Endoscope was introduced through the anus and advanced to the the descending colon. The flexible sigmoidoscopy was accomplished without difficulty. The patienttolerated the procedure well. The quality of the bowel preparation was good. Findings: The perianal and digital rectal examinations were normal. The site of the rectal cancer was visualized. There was a clean scar without ulceration or other visible evidence of recurrence. There was non-bleeding adjacent telangectasia. External and internal hemorrhoids were found. Impression: - No specimens collected. - No evidence of residual or recurrent cancer Recommendation: - Colonoscopy in 2 years Electronically signed by Phan Brannon Chicho Brannon M.D. 11/25/2024 3:24:17 PM Number of Addenda: 0 Note Initiated On: 11/25/2024 3:18 PM Recognized by the [employer] for promoting quality in endoscopy us Chicho Brannon MD ENDOSCOPY PROCEDURES Final Res ult * COLONOSCOPY (07/10/2023 6:32 AM CDT) Anatomical Region Laterality Modality Other Narrative Procedure Note Chicho Brannon MD - 07/10/2023 6:32 AM CDT [facility] Patient Name: Priya Puga Procedure Date: 07/10/2023 6:32 AM Date of : 1960 Admit Type: Outpatient Age: 63 Gender: Female Attending MD: Chicho Brannon M.D. Room: [facility] 02 Note Status: Finalized Procedure: Colonoscopy Indications: Personal history of malignant rectal neoplasm Referring MD: Providers: Chicho Brannon M.D. Medicines: Propofol per Anesthesia Complications: No immediate complications. Estimated Blood Loss: Estimated blood loss: none. Procedure: Pre-Anesthesia Assessment: - After reviewing the risks and benefits, thepatient was deemed in satisfactory condition to undergo the procedure. - After reviewing the risks and benefits, thepatient was deemed in satisfactory condition to undergo the procedure. - Immediately prior to administration ofmedications, the patient was re-assessed for adequacy to receive sedatives. The benefits, risks and alternatives of theprocedure and sedation were discussed and informed consentwas obtained. All questions were answered. Please referto the signed informed consent document in the medical record. The scope was passed under direct vision.The [id number] Colonoscope was introducedthrough the anus and advanced to the the cecum, identifiedby the ileocecal valve. The colonoscopy was performed without difficulty. The patient tolerated the procedure well. The quality of the bowelpreparation was good. The bowel preparation used was SUTAB. Findings: The perianal and digital rectal examinations were normal. Three sessile polyps were found in the transverse colon. The polypswere 2 to 3 mm in size. These polyps were removed with a hot biopsyforceps. Resection and retrieval were complete. A 3 mm polyp was found in the sigmoid colon. The polyp was sessile.The polyp was removed with a hot biopsy forceps. Resection and retrieval were complete. The site of the rectal cancer was visualized. There was a clean scar without ulceration or other visible evidence of recurrence. There was non-bleeding adjacent telangectasia. Impression: - Three 2 to 3 mm polyps in the transverse colon, removed with a hot biopsy forceps. Resected and retrieved. - One 3 mm polyp in the sigmoid colon, removed witha hot biopsy forceps. Resected and retrieved. - No evidence of residual or recurrent cancer Recommendation: - Await pathology results. - Repeat colonoscopy in 3 years for surveillance. Electronically signed by Phan Brannon Chicho Brannon M.D. 07/10/2023 8:51:44 AM Number of Addenda: 0 Note Initiated On: 07/10/2023 6:32 AM Recognized by the [employer] for promoting quality in endoscopy us Chicho Brannon MD ENDOSCOPY PROCEDURES Final Res ult from Last 3 Months or Most Recently Relevant to Health Maintenance Insurance [facility]PA [facility] MEDICARE ADVANTAGE IDPA [facility] MDCR HMO REF IDPA [facility] MEDICARE ADVANTAGE Advance Directives For more information, please contact: [phone] * Full Code (Latest Code Status on File) Date Activated Date Inactivated Comments 11/25/2024 2:24 PM 11/25/2024 7:38 PM * Full Code Date Activated Date Inactivated Comments 07/10/2023 6:19 AM 07/10/2023 1:45 PM * Full Code Date Activated Date Inactivated Comments 07/06/2020 9:30 AM 07/06/2020 6:32 PM * Full Code Date Activated Date Inactivated Comments 01/07/2020 2:39 PM 01/07/2020 8:48 PM * Full Code Date Activated Date Inactivated Comments 07/08/2019 8:16 AM 07/08/2019 3:17 PM Care Teams Dance Hall Host/Hostess Relationship Specialty Start Date End Date Boris Segundo MD PCP - General Family Medicine 09/07/18 Daniel Paulino MD Radiation Oncologist Radiation Oncology 09/18/18 Chicho Brannon MD [id number] [place] [address] Surgeon Colon and Rectal Surgery 06/17/21 Jarred Vigil DO [address] [facility] [address] [facility] [address] Referring Physician Internal Medicine 09/06/18
--- OUTSIDE RECORDS SUMMARY | 2025-01-15 13:54 | XMS_ITS | Encounter Summary ---
Author Organization [facility] Address 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
--- OUTSIDE RECORDS SUMMARY | 2025-01-15 13:54 | XMS_ITS | Encounter Summary ---
Author Organization [employer] Address [address] [place] [address] Care Team Providers Care Landscape Manager Name Role Phone Radha Castillo MD Primary Care Provider [phone] Encounter Details Date Type Department Care Team (Latest Contact Info) Description 02/11/2002 Outpatient Historical HIS PATIENT IN A BED Jorge Jeffers MD [address] [place] [id number] INFEC/INFLAM-CIRCULAR SHEAR OPERATOR PROST DEV ([facility]/HCC) (Primary Dx) Social History Tobacco Use Types Packs/Day Years Used Date Smoking Tobacco: Never Assessed Comments Unknown Sex and Gender Information Value Date Recorded Sex Assigned at Not on file Legal Sex Female 5:24 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
--- OUTSIDE RECORDS SUMMARY | 2025-01-15 13:54 | XMS_ITS | Clinical Summary ---
Author Organization [facility] Address [address] [place] [address] Care Team Providers Care Human Resources Support Specialist Name Role Phone Unavailable Primary Care Provider Unavailabl e Social History Tobacco Use Types Packs/Day Years Used Date Smoking Tobacco: Never Assessed Comments Unknown Sex and Gender Information Value Date Recorded Sex Assigned at Not on file Legal Sex Female 6:18 PM CDT Gender Identity Not on file Sexual Orientation Not on file Plan of Treatment Health Maintenance Due Date Last Done Comments Cervical Cancer Screening Pa p Smear (Age 30 to 64) Every 3 Years 1960 Colorectal Cancer Screening Colonoscopy (10 Years) 1961 Annual Physical 1964 Hepatitis C 1979 DTaP, Tdap and Td Vaccines ( 1 - Tdap) 1980 Cervical Cancer Screening Pa p with HPV Testing (Age 30 to 64) Every 5 Years 1991 Cervical Cancer Screening with HPV 1991 Mammogram Screening 2001 Zoster Vaccines (1 of 2) 2011 COVID-19 Vaccine ( - 2023-2 5 season) 2024 RSV Immunization or 60+ Years (1 - 1-dose 75+ series) 2036 Meningococcal B Vaccine Aged Out No l onger eligible based on patient's age to complete this topic Meningococcal Vaccine Aged Out No alexys bonny eligible based on patient's age to complete this topic Pneumococcal Vaccine: Pediat rics (0 to 5 Years) and At-Risk Patients (6 to 49 Years) Aged Out No longer eligible b ased on patient's age to complete this topic RSV Immunizations Under 20 Months Aged Out No longer eligible based on patient's age to complete this topic
--- OUTSIDE RECORDS SUMMARY | 2025-01-15 13:54 | XMS_ITS | Clinical Summary ---
Author Organization [facility] Facility Address [address] [place] [address] Care Team Providers Care Dental Technologist Name Role Phone Boris Segundo MD Primary Care Provider [phone] Medications varenicline (CHANTIX) 0.5 MG tablet TAKE 1 TABLET(0.5 MG) BY MOUTH IN THE MORNING AND 1 TABLET IN THE EVENING. TAKE WITH FULL GLASS OF WATER 180 tablet 06/17/20 24 Active Empagliflozin- metFORMIN HCl 12.5-1000 MG tablet Take 12.5-1,000 mg by mouth in the morning and 12.5-1,000 mg in the evening. 180 tablet 1 07/16/20 24 Active losartan (COZAAR) 25 MG tablet TAKE ONE TABLET BY MOUTH EVERY NIGHT 90 tablet 11/05/19 25 Active glimepiride (AMARYL) 4 MG tablet Take 1 tablet (4 mg total) by mouth 1 (one) time each day before breakfast 90 tablet 1 01/08/20 25 Active ergocalciferol 1.25 MG (43007 UT) capsule Take 1 capsule (50,000 Units total) by mouth every 30 (thirty) days 4 capsule 1 01/08/20 25 Active glimepiride (AMARYL) 2 MG tablet Take 1 tablet (2 mg total) by mouth 1 (one) time each day before breakfast 90 tablet 1 07/16/20 24 025 Discontinued(Re order (does not appear on AVS)) ergocalciferol 1.25 MG (33269 UT) capsule Take 1 capsule (50,000 Units total) by mouth 1 (one) time per week 12 capsule 1 07/16/20 24 025 Discontinued ergocalciferol 1.25 MG (24407 UT) capsule Take 1 capsule by mouth once a week 12 capsule 12/26/19 025 Discontinued(Re order (does not appear on AVS)) Encounters Date Type Department Care Team Description 01/07/2025 3:00 PM CDT Office Visit [facility], [facility] [address] [phone] Radu Ibrahim DO Stage 1 chronic kidney disease (Primary Dx); Acute tubular necrosis (HCC); Focal segmental glomerulosclerosis; Persistent proteinuria; Simple chronic bronchitis (HCC); Sinus tachycardia; Type 2 diabetes mellitus with diabetic polyneuropathy (HCC); Rectal cancer (HCC); Personal history of breast cancer; Hypertensive chronic kidney disease; Type 2 diabetes mellitus with diabetic chronic kidney disease (HCC); Pure hypercholesterolemia, not otherwise specified; Tobacco use; Secondary hyperparathyroidism (HCC) 01/07/2025 Refill [facility], [facility] [address] [phone] Tatiana Damon CMA 01/01/2025 Orders Only [facility], [facility] [address] [phone] Radu Ibrahim DO 12/25/2024 Refill [facility], [facility] [address] [phone] Radu Ibrahim DO 11/05/2024 Refill [facility], [facility] [address] [phone] Radu Ibrahim DO from Last 3 Months Social History Tobacco Use Types Packs/Day Years Used Date Smoking Tobacco: Never Assessed Comments Unknown Sex and Gender Information Value Date Recorded Sex Assigned at Not on file Legal Sex Female 4:01 PM EDT Gender Identity Not on file Sexual Orientation Not on file Last Filed Vital Signs Vital Sign Reading Time Taken Comments Blood Pressure 100/58 01/07/2025 3:10 PM CDT Pulse 68 01/07/2025 3:10 PM CDT Temperature 36.1 C (97 F) 01/07/2025 3:10 PM CDT Respiratory Rate 18 01/07/2025 3:10 PM CDT Oxygen Saturation 97% 01/07/2025 3:10 PM CDT Inhaled Oxygen Concentration - - Weight 59.2 kg (130 lb 9.6 oz) 01/07/2025 3:10 P M CDT Height - - Body Mass Index - - Plan of Treatment Upcoming Encounters Date Type Department Care Team (Late st Contact Info) Description 07/15/2025 1:30 PM CDT Office Visit [facility], [facility] [address] [facility] [address] [place] [address] Radu Ibrahim DO [address] [place] [phone] Health Maintenance Due Date Last Done Comments Breast Cancer Screening 1961 Pneumococcal Vaccine: 50+ Ye ars (1 of 2 - PCV) 1980 Colorectal Cancer Screening: Annual FOBT 2010 Colorectal Cancer Screening: Sigmoidoscopy 2010 Diabetes: Ophthalmology Exam 04/24/2023 Diabetes: Pedal Pulse Checked 04/24/2023 Diabetes: Sensory Foot Exam 04/24/2023 Diabetes: Visual Foot Exam 04/24/2023 Diabetes: Hemoglobin A1C 04/02/2025 01/01/2025 Influenza Vaccine (Season Ended) 2025 08/02/20 13 Colorectal Cancer Screening: Colonoscopy 07/10/2033 07/10/2023 Hepatitis B Vaccine Aged Out No longe r eligible based on patient's age to complete this topic Procedures Procedure Name Priority Date/Time Associated Diagnosis Comments NOTE Routine 01/01/2025 8:52 AM CDT URINALYSIS RFX MICROSCOPIC Routine 01/01/2025 8:52 AM CDT HEMOGLOBIN A1C Routine 01/01/2025 8:52 AM CDT PROTEIN / CREATININE RATIO, URINE Routine 01/01/2025 8:52 AM CDT VITAMIN D 25 HYDROXY Routine 01/01/2025 8:52 AM CDT CYSTATIN C WITH EGFR Routine 01/01/2025 8:52 AM CDT PHOSPHOLIPASE A2 RECEPTOR ANTIBODIES, SERUM Routine 01/01/2025 8:52 AM CDT URINE ALBUMIN / CREATININE RATIO Routine 01/01/2025 8:52 AM CDT RENAL FUNCTION PANEL Routine 01/01/2025 8:52 AM CDT MAGNESIUM Routine 01/01/2025 8:52 AM CDT PTH, INTACT AND CALCIUM Routine 01/01/2025 8:52 AM CDT from Last 3 Months Results * Phospholipase A2 Receptor Antibodies, Serum (01/01/2025 8:52 AM CDT) Phospholipase A2 Receptor (PLA2R) Ab, ABHAY <4 RU/mL [facility], Comment: Reference Range: <14: NEGATIVE 14-19: BORDERLINE >19: POSITIVE Phospholipase A2 Receptor, IgG NEGATIVE NEGATIVE [facility], 01/01/2025 8:52 AM CDT 01/01/2025 8:57 AM CDT Narrative [facility] - 01/08/2025 11:51 PM CDT FASTING:YES FASTING: YES Resulting Agency Comment Performing Organization Information: Site ID: [id number] Name: [facility], Address: [address] [place] [address] Director: Zahida Foley MD,PhD,KAYA us Radu Ibrahim DO LAB BLOOD ORDERABLES Final R esult [facility], [address] [place] [address] * NOTE (01/01/2025 8:52 AM CDT) Note: [facility] Comment: This urine was analyzed for the presence of WBC, RBC, bacteria, casts, and other formed elements. Only those elements seen were reported. 01/01/2025 8:52 AM CDT 01/01/2025 8:57 AM CDT Narrative [facility] - 01/08/2025 11:51 PM CDT FASTING:YES FASTING: YES Resulting Agency Comment Performing Organization Information: Site ID: [id number] Name: [facility] Address: [facility] [place] [address] Director: Nikhil Martin MD us Radu Ibrahim DO LAB [id number] NSOLICITED RESULTS Final Result Performing Organization Address City/[facility] Co de Phone Number DALTON CAPONE Dalton [address] [place] [address] * Cystatin C w/GFR (01/01/2025 8:52 AM CDT) Cystatin C 0.81 0.52 - 1.14 mg/L [facility] eGFR 95 > OR = 60 mL/min/1.73 m2 [facility] 01/01/2025 8:52 AM CDT 01/01/2025 8:57 AM CDT Narrative [facility] - 01/08/2025 11:51 PM CDT FASTING:YES FASTING: YES Resulting Agency Comment Performing Organization Information: Site ID: [id number] Name: [facility] Address: [address] [place] [address] [place] [address] Director: Nikhil Martin MD us Radu Ibrahim DO LAB BLOOD ORDERABLES Final R esult Performing Organization Address City/[facility]/ZIP Co de Phone Number DALTON CAPONE [facility] [address] [place] [address] * (ABNORMAL) PTH, Intact and Calcium (01/01/2025 8:52 AM CDT) Parathyroid Hormone, Intact 13(L) 16 - 77 pg/mL [facility] Comment: Interpretive Guide Intact PTH Calcium ------- Normal Parathyroid Normal Normal Hypoparathyroidism Low or Low Normal Low Hyperparathyroidism Primary Normal or High High Secondary High Normal or Low Tertiary High High Non-Parathyroid Hypercalcemia Low or Low Normal High Calcium 9.4 8.6 - 10.4 mg/dL [facility] 01/01/2025 8:52 AM CDT 01/01/2025 8:57 AM CDT Narrative [facility] - 01/08/2025 11:51 PM CDT FASTING:YES FASTING: YES Resulting Agency Comment Performing Organization Information: Site ID: ID Name: [id number] Address: [address] [facility] [place] [address] Director: Nikhil Martin MD us Radu Ibrahim DO LAB BLOOD ORDERABLES Final R esult DALTON CAPONE [facility] [address] [place] [address] * (ABNORMAL) Protein, Total, Random Urine w/Creatinine (Protein/Creat Ratio) (01/01/2025 8:52 AM CDT) Creatinine, Ur 16(L) 20 - 275 mg/dL [facility] Urine Protein/Creati nine Ratio 938(H) 24 - 184 mg/g creat [facility] Protein/Creati nine Ratio, Urine 0.938(H) 0.024 - 0.184 mg/mg creat [facility] Protein Urine Random 15 5 - 24 mg/dL [facility] 01/01/2025 8:52 AM CDT 01/01/2025 8:57 AM CDT Narrative [facility] - 01/08/2025 11:51 PM CDT FASTING:YES FASTING: YES Resulting Agency Comment Performing Organization Information: Site ID: [id number] Name: [facility] Address: [place] [id number] Director: Nikhil Martin MD us Radu Ibrahim DO LAB URINE ORDERABLES Final R esult Performing Organization Address [facility] Co de Phone Number DALTON Mark [address] [address] * (ABNORMAL) Urine Albumin / Creatinine Ratio (01/01/2025 8:52 AM CDT) Creatinine, Ur 16(L) 20 - 275 mg/dL [facility] Urine Microalbumin 1.6 See Note: mg/dL [facility] Comment: Reference Range: Reference Range Not established Microalb/Creat Ratio 100(H) <30 mg/g creat [facility] Comment: The ADA defines abnormalities in albumin excretion as follows: Albuminuria Category Result (mg/g creatinine) Normal to Mildly increased <30 Moderately increased 30-299 Severely increased > OR = 300 The ADA recommends that at least two of three specimens collected within a 3-6 month period be abnormal before considering a patient to be within a diagnostic category. 01/01/2025 8:52 AM CDT 01/01/2025 8:57 AM CDT Narrative [facility] - 01/08/2025 11:51 PM CDT FASTING:YES FASTING: YES Resulting Agency Comment Performing Organization Information: Site ID: [id number] Name: [facility] Address: [place] [address] Director: Nikhil Martin MD us Radu Ibrahim DO LAB URINE ORDERABLES Final R esult Performing Organization Address [facility] Co de Phone Number DALTON CAPONE Dalton [facility] [address] [place] [address] * (ABNORMAL) Urinalysis Reflex Microscopic (01/01/2025 8:52 AM CDT) Color, Urine YELLOW YELLOW [facility] Appearance Urine CLEAR CLEAR [facility] Specific Carson, UA 1.023 1.001 - 1.035 [facility] pH Urine 6.0 5.0 - 8.0 [facility] Glucose, Ur 3+(A) NEGATIVE [facility] Bilirubin, Urine NEGATIVE NEGATIVE [facility] Ketones, Urine NEGATIVE NEGATIVE [facility] Hemoglobin Ur Ql Strip NEGATIVE NEGATIVE [facility] Protein, Ur NEGATIVE NEGATIVE [facility] Nitrite, Urine NEGATIVE NEGATIVE [facility] WBC Esterase Urine 1+(A) NEGATIVE [facility] WBC, Urine 10-20(A) < OR = 5 /HPF [facility] RBC, Urine 0-2 < OR = 2 /HPF [facility] Epithelial Cells in Urine NONE SEEN < OR = 5 /HPF [facility] Trans Epithelial, Urine CANCELED < OR = 5 /HPF [facility] Comment:Result canceled by t he ancillary. Renal Epithelial Cells, Urine CANCELED < OR = 3 /HPF [facility] Comment:Result canceled by t he ancillary. Bacteria NONE SEEN NONE SEEN /HPF [facility] Calcium Oxalate Crystals, Urine CANCELED NONE OR FEW /HPF [facility] Comment:Result canceled by t he ancillary. Triple Phosphate Crystals, Urine CANCELED NONE OR FEW /HPF [facility] Comment:Result canceled by t he ancillary. Uric Acid Crystals, Urine CANCELED NONE OR FEW /HPF [facility] Comment:Result canceled by t he ancillary. Amorphous Sediments CANCELED NONE OR FEW /HPF [facility] Comment:Result canceled by t he ancillary. Crystals CANCELED NONE SEEN /HPF [facility] Comment:Result canceled by t he ancillary. Hyaline Casts, Urine NONE SEEN NONE SEEN /LPF [facility] Granular Casts, Urine CANCELED NONE SEEN /LPF [facility] Comment:Result canceled by t he ancillary. Casts CANCELED NONE SEEN /LPF [facility] Comment:Result canceled by t he ancillary. Yeast, UA MANY(A) NONE SEEN /HPF [facility] Comments CANCELED [facility] Comment:Result canceled by t he ancillary. 01/01/2025 8:52 AM CDT 01/01/2025 8:57 AM CDT Narrative [facility] - 01/08/2025 11:51 PM CDT FASTING:YES FASTING: YES Resulting Agency Comment Performing Organization Information: Site ID: [id number] Name: [facility] Address: [address] [place] [id number] Director: Nikhil Martin MD us Radu Ibrahim DO LAB URINE ORDERABLES Final R esult DALTON CAPONE Dalton [place]ileya [address] [place] [address] * (ABNORMAL) Vitamin D 25 Hydroxy (01/01/2025 8:52 AM CDT) Vitamin D, 25-OH, Total, IA 115(H) 30 - 100 ng/mL [facility] Comment: Vitamin D Status 25-OH Vitamin D: Deficiency: <20 ng/mL Insufficiency: 20 - 29 ng/mL Optimal: > or = 30 ng/mL For 25-OH Vitamin D testing on patients on D2-supplementation and patients for whom quantitation of D2 and D3 fractions is required, the [facility](TM) 25-OH VIT D, (D2,D3), LC/MS/MS is recommended: order code 76105 (patients >2yrs). See Note 1 Note 1 For additional information, please refer to http://education.[employer].KnowNow/faq/KNR959 (This link is being provided for informational/ educational purposes only.) 01/01/2025 8:52 AM CDT 01/01/2025 8:57 AM CDT Narrative [facility] - 01/08/2025 11:51 PM CDT FASTING:YES FASTING: YES Resulting Agency Comment Performing Organization Information: Site ID: [id number] Name: [facility] Address: [address] [place] [address] Director: Nikhil Martin MD Radu Ibrahim DO LAB BLOOD ORDERABLES Final R esult Performing Organization Address [facility] de Phone Number DALTON CAPONE [facility] [address] [place] [address] * Magnesium (01/01/2025 8:52 AM CDT) Pathologist [facility] Magnesium 2.3 1.5 - 2.5 mg/dL [facility] 01/01/2025 8:52 AM CDT 01/01/2025 8:57 AM CDT Narrative [facility] - 01/08/2025 11:51 PM CDT FASTING:YES FASTING: YES Resulting Agency Comment Performing Organization Information: Site ID: [id number] Name: [facility] Address: [address] [place] [address] Director: Nikhil Martin MD Radu Ibrahim DO LAB BLOOD ORDERABLES Final R esult Performing Organization Address [facility] de Phone Number DALTON CAPONE [facility] [address] * (ABNORMAL) Hemoglobin A1c (01/01/2025 8:52 AM CDT) Hemoglobin A1C 8.2(H) <5.7 % of total Hgb [facility] Comment: For someone without known diabetes, a hemoglobin A1c value of 6.5% or greater indicates that they may have diabetes and this should be confirmed with a follow-up test. For someone with known diabetes, a value <7% indicates that their diabetes is well controlled and a value greater than or equal to 7% indicates suboptimal control. A1c targets should be individualized based on duration of diabetes, age, comorbid conditions, and other considerations. Currently, no consensus exists regarding use of hemoglobin A1c for diagnosis of diabetes for children. 01/01/2025 8:52 AM CDT 01/01/2025 8:57 AM CDT Narrative D[facility] PUTNAM - 01/08/2025 11:51 PM CDT FASTING:YES FASTING: YES Resulting Agency Comment Performing Organization Information: Site ID: Name: [facility] Address: [address] [address] Director: Nikhil Martin us Radu Ibrahim DO LAB BLOOD ORDERABLES Final R esult [facility] CAPONE [facility] [address] [place] [address] * (ABNORMAL) Renal Function Panel (01/01/2025 8:52 AM CDT) Glucose 175(H) 65 - 99 mg/dL [facility] Comment: Fasting reference interval For someone without known diabetes, a glucose value >125 mg/dL indicates that they may have diabetes and this should be confirmed with a follow-up test. BUN 22 7 - 25 mg/dL [facility] Creatinine 0.46(L) 0.50 - 1.05 mg/dL [facility] eGFR CKD-EPI CR 2020 107 > OR = 60 mL/min/1.7 3m2 [facility] BUN/Creatinine Ratio 48(H) 6 - 22 (calc) [facility] Sodium 139 135 - 146 mmol/L [facility] Potassium 4.4 3.5 - 5.3 mmol/L [facility] Chloride 107 98 - 110 mmol/L [facility] Bicarbonate (CO2) 26 20 - 32 mmol/L [facility] Calcium 9.4 8.6 - 10.4 mg/dL [facility] Phosphorus 3.7 2.5 - 4.5 mg/dL [facility] Albumin 4.3 3.6 - 5.1 g/dL [facility] 01/01/2025 8:52 AM CDT 01/01/2025 8:57 AM CDT Narrative [facility] - 01/08/2025 11:51 PM CDT FASTING:YES FASTING: YES Resulting Agency Comment Performing Organization Information: Site ID: [id number] Name: [facility] Address: [address] [phone] Director: Nikhil Martin MD us Radu Ibrahim DO LAB BLOOD ORDERABLES Final R esult DALTON STThi Mark [address] [address] [address] from Last 3 Months Insurance Medicare [facility]) Care Teams Dental Technologist Relationship Specialty Start Date End Date Boris Segundo MD [address] [place] [address] PCP - General Family Medicine 07/18/23
--- OUTSIDE RECORDS SUMMARY | 2025-01-15 13:54 | XMS_ITS | Clinical Summary ---
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 Gender Identity Not on file Sexual Orientation Not on file Plan of Treatment Health Maintenance Due Date Last Done Comments DTAP/TDAP/TD VACCINES (1 - Tdap) 1980 HPV/Cotest (21-29) 1982 CERVICAL CANCER SCREENING 1991 HPV/Cotest (30-65) 1991 PAP SMEAR 1991 BREAST CANCER SCREENING 2001 COLORECTAL SCREENING 2006 Colorectal Cancer Screening 2006 FIT-DNA Q 3 years 2006 FIT/FOBT Q 1 year 2006 Flex Sig/CT Colonography Q 5 years 2006 ZOSTER VACCINE (1 of 2) 2011 INFLUENZA VACCINE (#1) 2024 RSV VACCINE (60+ or ) (1 - 1-dose 75+ series) 2036 Care Teams Meter Maker Relationship Specialty Start Date End Date Radha Castillo MD [address] [place] [address] PCP - General 04/24/06
--- OUTSIDE RECORDS SUMMARY | 2025-01-15 13:54 | XMS_ITS | Encounter Summary ---
Author Organization [facility] Address 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
--- OUTSIDE RECORDS SUMMARY | 2025-01-15 13:54 | XMS_ITS | Encounter Summary ---
Author Organization [employer] Address 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
--- OUTSIDE RECORDS SUMMARY | 2025-01-15 13:54 | XMS_ITS | Encounter Summary ---
Author Organization [facility] Address 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
--- OUTSIDE RECORDS SUMMARY | 2025-01-15 13:54 | XMS_ITS | Encounter Summary ---
Author Organization [employer] Address 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
--- OUTSIDE RECORDS SUMMARY | 2025-01-15 13:54 | XMS_ITS | Clinical Summary ---
Author Organization [facility] Address [address] [place] [address] Care Team Providers Care Customer Training Specialist Name Role Phone Boris Segundo MD Primary Care Provider [phone] Daniel Paulino MD Unavailable [phone] Chicho Brannon MD Unavailable [phone] Allergies Active Allergy Reactions Criticality Noted Date [...] to your facility please call Urology at [phone] History of rectal cancer 12/05/2019 Overview (12/05/2019): Added automatically from request for surgery [id number] Screen for colon cancer 10/04/2019 Overview (10/04/2019): Added automatically from request for surgery [id number] Calculus of ureter 04/21/2019 Right ureteral stone 04/21/2019 Rectal cancer 09/11/2018 Cancer Staging:Clinical stage from 09/11/2018:Stage IIIB(cT3, cN1b, cM0) - Signed by Daniel Paulino MD on 09/18/2018 Pulmonary nodules Encounters Date Type Department Care Team Description 12/09/2024 Telephone [facility] Oncology [address] [place] [address] Vira Campos 11/25/2024 3:13 PM ENVIRONMENTAL SERVICES MANAGER Anesthesia Event [facility] at [address] [address] Darian Riddle MD Floro, Geoffrey Michael, BRADFORD 11/25/2024 2:45 PM ENVIRONMENTAL SERVICES MANAGER - 11/25/2024 3:30 PM ENVIRONMENTAL SERVICES MANAGER Surgery [facility] at [address] [address] Chicho Brannon MD SIGMOIDOSCOPY 11/25/2024 1:25 PM ENVIRONMENTAL SERVICES MANAGER - 11/25/2024 3:33 PM ENVIRONMENTAL SERVICES MANAGER Hospital Encounter [facility] at [address] [address] Chicho Brannon MD Discharge Disposition: Discharge to home or self care 11/15/2024 Telephone [facility] Surgery [address] [facility] Floor 5 [place] [address] Tiffany Gomez BS Scheduling Appointments (Confirm Flex Sig ) 11/15/2024 Telephone [facility] Surgery [address] [place] [address] 2nd Floor [address] [place] [address] Bridget Francis, RMMode Flexible Sigmoidoscopy 11/01/2024 Telephone [facility] Surgery [address] [facility] 2nd Floor [address] [place] [address] Lynne Nuñez, ERNESTINE Appointment 10/22/2024 Telephone [facility] Surgery [address] [place] [address] Bridget Francis, RMA Flexible Sigmoidoscopy from Last 3 Months Immunizations Immunization Administration Dates Next Due Influenza, Quadrivalent, Split, Intramuscular Surgical History Surgery Date Site/Laterality Comments HYSTERECTOMY 10/02/1994 - 10/01/1995 SINUS SURGERY BREAST SURGERY 08/02/1989 - 08/31/1989 MASTECTOMY 10/02/1988 - 10/01/1989 Right PORT PLACEMENT CHEST >5 YEARS 10/10/2018 N/A PORT REMOVAL 04/12/2019 N/A COLONOSCOPY POLYPECTOMY Medical History Medical History Date Comments Diabetes (HCC) Arthritis Depression Anxiety Breast cancer (HCC) 1988 Kidney stone Motion sickness Hyperlipidemia Type 2 diabetes mellitus (HCC) Rectal cancer (HCC) GERD (gastroesophageal reflux disease) Dysphagia COPD (chronic obstructive pulmonary disease) (HC C) Colon polyp Sleep apnea History of angina Neuropathy Depression Family History Medical History Relation Name Comments Diabetes Father Heart disease Father Diabetes Mother Heart disease Mother Colon cancer Paternal Grandfather Relation Name Status Comments Father Mother Paternal Grandfather Social History Tobacco Use Types Packs/Day Years [...] on file Legal Sex Female 11:04 PM ENVIRONMENTAL SERVICES MANAGER Gender Identity Not on file Sexual Orientation Not on file Obstetrics History Last Filed Vital Signs Vital Sign Reading Time Taken Comments Blood Pressure 121/69 11/25/2024 3:25 PM ENVIRONMENTAL SERVICES MANAGER Pulse 98 11/25/2024 3:25 PM ENVIRONMENTAL SERVICES MANAGER Temperature 36.4 C (97.6 F) 11/25/2024 3:25 PM ENVIRONMENTAL SERVICES MANAGER Respiratory Rate 16 11/25/2024 3:25 PM ENVIRONMENTAL SERVICES MANAGER Oxygen Saturation 95% 11/25/2024 3:25 PM ENVIRONMENTAL SERVICES MANAGER Inhaled Oxygen Concentration - - Weight 59 kg (130 lb) 11/25/2024 2:24 PM ENVIRONMENTAL SERVICES MANAGER Height 162.6 cm (5' 4 ) 11/25/2024 2:24 PM ENVIRONMENTAL SERVICES MANAGER Body Mass Index 22.31 11/25/2024 2:24 PM ENVIRONMENTAL SERVICES MANAGER Plan of Treatment Health Maintenance Due Date Last Done Comments Breast Cancer Screening-Mammogram 1960 Depression Screening 1961 Hepatitis C Screening 1961 DTaP/Tdap/Td Vaccine (1 - Tdap) 1972 Hepatitis B Screening 1979 Regular Well Visit/Exam 18-64 1979 Pneumococcal vaccine <65 (1 of 2 - PCV) 1980 Lung Cancer Screening 2011 Zoster Vaccine (1 of 2) 2011 Influenza Vaccine (Season Ended) 2025 08/02/20 13 Colon Cancer Screening-Colonoscopy 07/10/2033 07/10/2023, 07/06/2020, 01/07/2020 Colon Cancer Screening-CT Colonography Discontinued 11/25/2024, 07/10/2023, 07/06/2020, Additional history exists Colon Cancer Screening-DNA Stool Discontinued 11/25/2024, 07/10/2023, 07/06/2020, Additional history exists Colon Cancer Screening-FIT Discontinued 11/25, 07/10/2023, 07/06/2020, Additional history exists Colon Cancer Screening-Sigmoidoscopy Discontinued 11/25/2024, 07/10/2023, 07/06/2020, Additional history exists Medical Devices Implanted Type Area Planer Setup Operator Device Identifier Shelf Expiration Date Model / Serial / Lot Med Comp Dignity Port Implanted:Qty : 1 on 10/10/2018 at [facility] Catheter Right: Chest Medcomp [id number] 08/31/2022 / [id number] / [id number] Explanted Type Area Planer Setup Operator Device Identifier Shelf Expiration Date Model / Serial / Lot [employer] [id number] Inlay [place] 6fr 26cm Pusher Fluoro Marker Atraumatic Insertion Latex Free - [id number] Implanted:Qty: 1 on 06/18/2019 by Kyle Robison MD at [facility] Explanted:Qty: 1 on 11/21/2019 Right: Ureter [employer] 08/29/2023 [id number] / / Description:Removed per 11/21 MRI Procedures Procedure Name Priority Date/Time Associated Diagnosis Comments FLEXIBLE SIGMOIDOSCOPY 3:18 PM ENVIRONMENTAL SERVICES MANAGER SIGMOIDOSCOPY 11/25/2024 3:13 PM ENVIRONMENTAL SERVICES MANAGER History of rectal cancer COLONOSCOPY 07/10/2023 6:32 AM CDT from Last 3 Months or Most Recently Relevant to Health Maintenance Results * Flexible Sigmoidoscopy (11/25/2024 3:18 PM ENVIRONMENTAL SERVICES MANAGER) Anatomical Region Laterality Modality Other Narrative Procedure Note Chicho Brannon MD - 11/25/2024 3:18 PM CST [facility] Patient Name: Priya Puga Procedure Date: 11/25/2024 3:18 PM Date of : 1960 Admit Type: Outpatient Age: 64 Gender: Female Attending MD: Chicho rBannon M.D. Room: [facility] ENDOSCOPY ROOM 02 Note Status: Finalized Procedure: Flexible Sigmoidoscopy Indications: Anal hemorrhage, Follow up for non-operative management of rectal cancer Referring MD: Providers: Chicho Brannon M.D. Medicines: None Complications: No immediate complications. Estimated Blood Loss: Estimated blood loss: none. Procedure: The benefits, risks, and alternatives to theprocedure and sedation were discussed and informed consentwas obtained. The [id number] Endoscope was introduced through the anus and [...] On: 11/25/2024 3:18 PM Recognized by the [employer] for promoting quality in endoscopy us Chicho Brannon MD ENDOSCOPY PROCEDURES Final Res ult * COLONOSCOPY (07/10/2023 6:32 AM CDT) Anatomical Region Laterality Modality Other Narrative Procedure Note Chicho Brannon MD - 07/10/2023 6:32 AM CDT [facility] Patient Name: Priya Puga Procedure Date: 07/10/2023 6:32 AM Date of : 1960 Admit Type: Outpatient Age: 63 Gender: Female Attending MD: Chicho Brannon M.D. Room: [facility] ENDOSCOPY ROOM 02 Note Status: Finalized [...] The scope was passed under direct vision.The [id number] Colonoscope was introducedthrough the anus and advanced [...] On: 07/10/2023 6:32 AM Recognized by the [employer] for promoting quality in endoscopy Chicho Brannon MD ENDOSCOPY PROCEDURES Final Res ult from Last 3 Months or Most Recently Relevant to Health Maintenance Insurance [employer]PA [facility] MEDIC[employer] ADVANTAGE IDPA [facility] MDCR HMO REF [employer]PA [facility] [employer] ADVANTAGE Advance Directives For more information, please contact: [phone] * Full Code (Latest Code Status on [...] 8:16 AM 07/08/2019 3:17 PM Care Teams Customer Training Specialist Relationship Specialty Start Date End Date Boris Segundo MD PCP - General Family Medicine 09/07/18 Daniel Paulino MD Radiation Oncologist Radiation Oncology 09/18/18 Chicho Brannon MD [id number] [place] [address] Surgeon Colon and Rectal Surgery 06/17/21 Jarred Vigil DO [address] [place] [address] Referring Physician Internal Medicine 09/06/18
--- OUTSIDE RECORDS SUMMARY | 2025-01-15 13:54 | XMS_ITS ---
Author Organization [facility] Address [address] [place] [address] Care Team Providers Care Road Monkey Name Role Phone Boris Segundo MD Primary Care Provider [phone] Daniel Paulino MD Unavailable [phone] Chicho Brannon MD Unavailable [phone] Active Problems Problem Noted Date Diagnosed Date Retained ureteral stent 12/01/2020 Overview (12/01/2020): Possible retained ureteral stent, Unable to reach patient for ureteral stent removal. If patient presents to your facility please call Urology at [phone] History of rectal cancer 12/05/2019 Overview (12/05/2019): Added automatically from request for surgery [id number] Screen for colon cancer 10/04/2019 Overview (10/04/2019): Added automatically from request for surgery [id number] Calculus of ureter 04/21/2019 Right ureteral stone 04/21/2019 Rectal cancer 09/11/2018 Cancer Staging:Clinical stage from 09/11/2018:Stage IIIB(cT3, cN1b, cM0) - Signed by Daniel Paulino MD on 09/18/2018 Pulmonary nodules Current Treatment and Therapy Plans No current plan information found. Past Treatment and Therapy Plans Oncology Chemotherapy Treatment Plan Name Start Date Discontinue Date Treatment Medications Discontinue Reason Plan Provider Cycles [id number] - [facility] - GI RAD ONC - NORMAL-R for Low Rectal Cancer - FOLFOX 9 03/12/2019 fluorouracil (ADRUCIL)fluorou racil (ADRUCIL) infusion - for home infusion (ADRUCIL)leucovo rin IVPB in 250 mLoxaliplatin (ELOXATIN) IVPB Therapy Complete Giselle Almazan MD 8 of 8 cycles started Oncology Supportive Care Plan Name Start Date Discontinue Date Treatment Medications Discontinue Reason Plan Provider IV MAINTENANCE THERAPY PLAN 11/03/2018 03/25/2020 No medications scheduled. Therapy Complete Giselle Almazan MD Radiation Treatments * Course C1 10/03/2018 - 10/09/2018 Treatment Period Energy Fraction Dose Fractions Total Dose Plans Planned RECTUM 10/03/2018 - 10/09/2018 500 5 / 2,500 Reference Points Delivered RECTUM_DPV 10/03/2018 - 10/09/2018 2,500 Lifetime Dose Tracking * Chemical Lifetime Dose Automatic Entry Manual Entr y Fluoro Time 0.79 minutes 0.79 minutes 0 minutes Air kerma at the reference point (Ka,r) 6.38 mGy 6 .38 mGy 0 mGy DLP 3,988 mGycm 3,988 mGycm 0 mGycm
--- OUTSIDE RECORDS SUMMARY | 2025-01-15 13:54 | XMS_ITS | Encounter Summary ---
Author Organization [email or web address] Address [address] [place] [address] Care Team Providers Care Computer Information Science Professor Name Role Phone Radha Castillo MD Primary Care Provider [phone] Encounter Details Date Type Department Care Team (Late st Contact Info) Description 11/18/2004 Outpatient Historical [facility] Radha Landrum MD [address] [place] [address] SURGERY FOLLOWUP, OTHER (Primary Dx) Social History Tobacco Use Types Packs/Day Years Used Date Smoking Tobacco: Never Assessed Comments Unknown Sex and Gender Information Value Date Recorded Sex Assigned at Not on file Legal Sex Female 5:24 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
--- OUTSIDE RECORDS SUMMARY | 2025-01-15 13:54 | XMS_ITS | Encounter Summary ---
Author Organization [employer] Address [address] [place] [address] Care Team Providers Care Inspector Watch Train Name Role Phone Radha Castillo MD Primary Care Provider [phone] Encounter Details Date Type Department Care Team (Late st Contact Info) Description 04/24/2006 Outpatient Historical HIS 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
== END 2025-01-15 12:57 | disposition home or self-care (01) ==
LOC: ANHIMG 12:56
PROVIDERS: PCP Family Medicine; Visit Provider Nurse Practitioner Family
DX: M85.89 Other specified disorders of bone density and structure, multiple sites (principal); Z78.0 Asymptomatic menopausal state
CPT/HCPCS: 77080

== ENCOUNTER 2025-08-20 09:43 | Outpatient (CLI) | payer MEDICARE, MEDICAID, SELFPAY ==
--- OUTSIDE RECORDS SUMMARY | 2007-07-13 06:24 | XMS_ITS | Continuity of Care Document ---
Author Organization [facility] Address [address] [place] [address] [address] [place] [address] Phone Care Team Providers Care Neurologist Name Role Phone Camacho OD, Joaquin Unavailable Unavailable Procedures Procedure Date Eye Exam & Treatment Advance Directives Directive Yes / No Effective Date File Name No Information Encounters Encounter Description Practice Location Reason(s) For Visit Diagnoses Date Provider Providers Copied on Encounter [facility], [address], [place], [place], [address], [place] tel:[phone] [facility] No Information 2-200 7 Camacho OD Joaquin. [address] , [address], [place], [address], [place]. tel:[phone] Family History Family Member Type Diagnosis Age At Onset No Information Payers Payer name Insurance type Covered constitution party ID Authoriza tion(s) Medicaid [facility] [id number] Social History Type Description Quantity Date Captured Comments Sex Female Smoking Status No Information Chief Complaint And Reason For Visit No Information Reason For Referral Reason For Referral No Information History Of Present Illness Encounter Date Complaint History Of Prese nt Illness No Information Functional Status Date Functional Assessmen t No Information Instructions Date Instruction Additional Infor mation No Information Assessments Type Assessment Date No Information Patient Care Teams Name Effective Dates (start - stop) Status Members No Information
--- OUTSIDE RECORDS SUMMARY | 2007-07-13 06:24 | XMS_ITS | Continuity of Care Document ---
Author Organization [facility] Address [address] [place] [address] [address] [place] [address] Phone Care Team Providers Care Waiter/Waitress Room Service Name Role Phone Camacho OD, Joaquin Unavailable Unavailable Procedures Procedure Date Eye Exam & Treatment Advance Directives Directive Yes / No Effective Date File Name No Information Encounters Encounter Description Practice Location Reason(s) For Visit Diagnoses Date Provider Providers Copied on Encounter [facility], [address], [place], [place], [address], [place] tel:[phone] [facility] No Information 2-200 7 Camacho OD Joaquin. [address], [place], [address], [place]. tel:[phone] Family History Family Member Type Diagnosis Age At Onset No Information Payers Payer name Insurance type Covered constitution party ID Authoriza tion(s) Medicaid [facility] [id number] Social History Type Description Quantity Date Captured [...]
--- OUTSIDE RECORDS SUMMARY | 2025-08-06 04:21 | XMS_ITS | Continuity of Care Document ---
Author Organization [facility] Address [address] [place] [phone] Phone Care Team Providers Care Content Management Specialist Name Role Phone Kasia FREDERICK, FACWilliam, Marcin [...] Diagnoses Date Provider Providers Copied on Encounter [facility], [address] [place] [address], [id number] , tel: [phone] [facility] [place] No Information [facility]. [address] [place] [address], [id number] , [place]. tel: [phone] [facility], [address] [place] [address], [id number] , tel: [phone] [facility] [place] No Information [facility]. [address] [place], [place] [address], [place], [id number] , . tel: [phone] [facility], [address] [place] [address], [id number] , tel: [phone] [facility] [place] Unspecified right bundle-branch blockShortness of breathUnspecified atrial fibrillationPalpitati onsEssential (primary) hypertensionFamily history of ischemic heart disease and other diseases of the circulatory systemAtherosclerotic heart disease of [place] coronary artery without angina pectorisOther chest pain [facility]. [address] [place], [place] [address], [place], [id number] , . tel: [phone] Family History Family Member Type Diagnosis Age [...]
--- OUTSIDE RECORDS SUMMARY | 2025-08-06 04:21 | XMS_ITS | Continuity of Care Document ---
Author Organization [facility] Address [address] [place] [phone] Phone Care Team Providers Care Armament Aircraft Mechanic Name Role Phone Kasia FREDERICK, FACWilliam, Marcin [...] Diagnoses Date Provider Providers Copied on Encounter [facility], [address] [place] [address], [id number] , tel: [phone] [facility] [place] No Information [facility]. [address] [place] [address], [id number] , [place]. tel: [phone] [facility], [address] [place] [address], [id number] , tel: [phone] [facility] [place] No Information [facility]. [address] [place], [place] [address], [place], [id number] , . tel: [phone] [facility], [address] [place] [address], [id number] , tel: [phone] [facility] [place] Unspecified right bundle-branch blockShortness of breathUnspecified atrial fibrillationPalpitati onsEssential (primary) hypertensionFamily history of ischemic heart disease and other diseases of the circulatory systemAtherosclerotic heart disease of [place] coronary artery without angina pectorisOther chest pain [facility]. [address] [place], [place] [address], [place], [id number] , . tel: [phone] Family History Family Member Type Diagnosis Age [...]
--- NOTE | ~2025-08-20 | CT_ITS ---
EXAMINATION:CT diagnostic chest w con DATE: 08/20/2025 10:18 INDICATION: Chest pain TECHNIQUE: Computed tomography (CT) of the chest was performed without intravenous contrast. The dose-length product (DLP) was 128.20 mGy-cm. COMPARISON: None. FINDINGS: Moderately severe area of consolidation, with cavitation and air cysts formation in the anterior right upper lobe extending to the pleural margin with no discretely defined lesion or mass. Maximum dimensions of the area involved measures 9.3 x 5.8 x 8.1 cm in the AP by subtle caudal by transverse dimensions. The remainder of the lung stern appear clear, although there is moderate to severe diffuse centrilobular emphysematous changes. Heart and great vessels within normal limits. No bulky lymphadenopathy or significant pericardial effusion. Moderately extensive coronary artery calcification and/or stenting. Central and large airways are patent. No acute process seen in the visualized portions of the upper chest, extrathoracic soft tissues or bony thorax. IMPRESSION: 1. Extensive fibrosing and consolidative appearing changes in the right upper lobe. Findings could represent sequelae of chronic or recurrent pneumonia with superimposed acute infection. Underlying malignancy is not excluded especially given severity of emphysematous or COPD appearing changes. 2. Other findings as above. Reviewed, dictated and finalized at location A. RENTAL SALES ASSISTANT IMPRESSION: 1. Extensive fibrosing and consolidative appearing changes in the right upper l obe. Findings could represent sequelae of chronic or recurrent pneumonia with superimposed acute infection. Underlying malignancy is not excluded especially given severity of emphysematous or COPD appearing changes. 2. Other findings as above.
[2025-08-20 10:03] LABS: Estimated Glomerular Filt Rate > 60
--- OUTSIDE RECORDS SUMMARY | 2025-08-20 13:07 | XMS_ITS | Encounter Summary ---
Author Organization [employer] [facility] Address [address] [place] [address] Care Team Providers Care Side Door Man Name Role Phone Radha Castillo MD Primary Care Provider [phone] [phone] Encounter Details Date Type Department Care Team (Latest Contact Info) Description 03/02/2004 Outpatient Historical HIS [facility] Jorge Mcrae MD [address] [place] [phone] LUMP OR MASS IN BREAST (Primary Dx) Social History Tobacco Use Types Packs/Day Years Used Date Smoking Tobacco: Never Assessed Comments Unknown Sex and Gender Information Value Date Recorded Sex Assigned at Not on file Legal 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
--- OUTSIDE RECORDS SUMMARY | 2025-08-20 13:07 | XMS_ITS | Encounter Summary ---
Author Organization [employer] Address [address] [place] [address] Care Team Providers Care Multiple Spindle Router Operator Name Role Phone Radha Castillo MD Primary Care Provider [phone] [phone] Encounter Details Date Type Department Care Team (Late st Contact Info) Description 11/18/2004 Outpatient Historical HIS [facility] Radha Landrum MD [address] [place] [address] SURGERY FOLLOWUP, OTHER (Primary Dx) Social History Tobacco Use Types Packs/Day Years Used Date Smoking Tobacco: Never Assessed Comments Unknown Sex and Gender Information Value Date Recorded Sex Assigned at Not on file 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
--- OUTSIDE RECORDS SUMMARY | 2025-08-20 13:07 | XMS_ITS | Encounter Summary ---
Author Organization [employer] Address 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
--- OUTSIDE RECORDS SUMMARY | 2025-08-20 13:07 | XMS_ITS | Clinical Summary ---
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
--- OUTSIDE RECORDS SUMMARY | 2025-08-20 13:07 | XMS_ITS | Encounter Summary ---
Author Organization [employer] Address 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
--- OUTSIDE RECORDS SUMMARY | 2025-08-20 13:07 | XMS_ITS | Encounter Summary ---
Author Organization [employer] Address 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
--- OUTSIDE RECORDS SUMMARY | 2025-08-20 13:07 | XMS_ITS | Encounter Summary ---
Author Organization [employer] Address 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
--- OUTSIDE RECORDS SUMMARY | 2025-08-20 13:07 | XMS_ITS | Encounter Summary ---
Author Organization [employer] Address 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
--- OUTSIDE RECORDS SUMMARY | 2025-08-20 13:07 | XMS_ITS | Clinical Summary ---
Author Organization [facility] Address [address] [place] [address] Care Team Providers Care Security Messenger Name Role Phone Boris Segundo MD Primary Care Provider [phone] Medications varenicline (CHANTIX) 0.5 MG tablet TAKE 1 TABLET(0.5 MG) BY MOUTH IN THE MORNING AND 1 TABLET IN THE EVENING. TAKE WITH FULL GLASS OF WATER 180 tablet 4 Active ergocalciferol 1.25 MG (22695 UT) capsule Take 1 capsule (50,000 Units total) by mouth every 30 (thirty) days 4 capsule 1 5 Active glimepiride (AMARYL) 4 MG tablet TAKE 1 TABLET BY MOUTH ONCE DAILY BEFORE BREAKFAST 90 tablet 5 Active losartan (COZAAR) 25 MG tablet TAKE 1 TABLET BY MOUTH ONCE DAILY AT NIGHT 90 tablet 5 Active Synjardy 12.5-1000 MG tablet TAKE 1 TABLET BY MOUTH TWICE DAILY IN THE MORNING AND IN THE EVENING 180 tablet 5 Active Encounters Date Type Department Care Team Description 08/05/2025 Documentation Only [facility], [address] [phone] Radu Ibrahim DO 08/05/2025 Documentation Only [facility], [address] [phone] Radu Ibrahim DO 08/05/2025 Documentation Only [facility], [address] [address] Radu Ibrahim, 08/04/2025 Documentation Only [facility], [address] [address] LeightonJcarlosen 07/12/2025 Refill [facility], [facility] [address] [place] [address] Radu Ibrahim, 07/11/2025 Documentation Only [facility], [address] [phone] Radu Ibrahim, 07/09/2025 Refill [facility], [facility] [address] [place] [address] Radu Ibrahim, DO 07/09/2025 Documentation Only [facility], [address] [phone] Radu Ibrahim, 06/29/2025 Refill [facility], [facility] [address] [place] [address] Radu Ibrahim, DO from Last 3 Months Social History [...] Care Team (Late st Contact Info) Description 09/23/2025 2:30 PM PLACEMENT SPECIALIST Office Visit [facility], [facility] [address] [place] [phone] Radu Ibrahim DO [address] [place] [address] Health Maintenance Due Date Last Done Comments Breast Cancer Screening 1961 Pneumococcal Vaccine: 50+ Years (1 of 2 - PCV) 1980 Colorectal Cancer Screening: Annual FOBT 2010 Colorectal Cancer Screening: Sigmoidoscopy 2010 Diabetes: Ophthalmology Exam 04/24/2023 Diabetes: Pedal Pulse Checked 04/24/2023 Diabetes: Sensory Foot Exam 04/24/2023 Diabetes: Visual Foot Exam 04/24/2023 Diabetes: Hemoglobin A1C 04/02/2025 01/01/2025 Influenza Vaccine (#1) 2025 08/02/2013 Colorectal Cancer Screening: Colonoscopy 04/25/2035 04/25/2025, 07/10/2023 Hepatitis B Vaccine Aged Out No longe r eligible based on patient's age to complete this topic Procedures Procedure Name Priority Date/Time Associated Diagnosis Comments HEMOGLOBIN A1C Routine 01/01/2025 8:52 AM CDT from Last 3 Months or Most Recently Relevant to Health Maintenance Results * (ABNORMAL) Hemoglobin A1c (01/01/2025 8:52 AM CDT) Hemoglobin A1C 8.2(H) <5.7 % of total Hgb [facility] Comment: For someone without known diabetes, [...] AM CDT 01/01/2025 8:57 AM CDT Narrative [facility] - 01/08/2025 11:51 PM CDT FASTING:YES FASTING: YES Resulting Agency Comment Performing Organization Information: Site ID: [id number] Address: [address] [phone] Director: Nikhil Martin us Radu Ibrahim DO LAB BLOOD ORDERABLES Final R esult [facility] [address] [phone] from Last 3 Months or Most Recently Relevant to Health Maintenance Insurance Medicare [facility]) Care Teams Security Messenger Relationship Specialty Start Date End Date Boris Segundo MD [address] [place] [id number] PCP - General Family Medicine 07/18/23
--- OUTSIDE RECORDS SUMMARY | 2025-08-20 13:07 | XMS_ITS | Clinical Summary ---
Author Organization [facility] Address [address] [place] [address] Care Team Providers Care Dialysis Clinical Manager Name Role Phone Unavailable Primary Care Provider [...] Screening with HPV 1991 Mammogram Screening 2001 Pneumococcal Vaccine: 50+ Ye ars (1 of 1 - PCV) 2011 Zoster Vaccines (1 of 2) 2011 COVID-19 Vaccine ( - 2024-2 6 season) 2025 Influenza Adult (#1) 2025 RSV Immunization or 60+ Years (1 - 1-dose 75+ series) 2036 Hepatitis A Vaccines Aged Out No long er eligible based on patient's age to complete this topic Meningococcal B Vaccine Aged Out No l onger eligible based on patient's age to complete this topic Meningococcal Vaccine Aged Out No alexys bonny eligible based on patient's age to complete this topic RSV Immunizations Under 20 Months Aged Out No longer eligible based on patient's age to complete this topic
--- OUTSIDE RECORDS SUMMARY | 2025-08-20 13:07 | XMS_ITS | Encounter Summary ---
Author Organization [employer] Address [address] [place] [address] Care Team Providers Care Cable Splicer Helper Name Role Phone Radha Castillo MD Primary Care Provider [phone] Encounter Details Date Type Department Care Team (Latest Contact Info) Description 02/11/2002 Outpatient Historical HIS PATIENT IN A BED Jorge Jeffers MD [address] [place] [address] INFEC/INFLAM-EVAPORATOR SUPERVISOR PROST DEV ([facility]) (Primary Dx) Social History Tobacco Use Types Packs/Day Years Used Date Smoking Tobacco: Never Assessed Comments Unknown Sex and Gender Information Value Date Recorded Sex Assigned at Not on file Legal Sex Female 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
--- OUTSIDE RECORDS SUMMARY | 2025-08-20 13:07 | XMS_ITS | Encounter Summary ---
Author Organization [employer] Address 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
--- OUTSIDE RECORDS SUMMARY | 2025-08-20 13:07 | XMS_ITS | Encounter Summary ---
Author Organization [employer] Address [address] [place] [address] Care Team Providers Care Ice Cream Maker Name Role Phone Radha Castillo MD Primary Care Provider [phone] [phone] Encounter Details Date Type Department Care Team (Late st Contact Info) Description 04/24/2006 Outpatient Historical HIS [facility] Radha Landrum MD [address] [place] [address] Follow-Up Examination, Following Other Surgery (Primary Dx) Social History Tobacco Use Types Packs/Day Years Used Date Smoking Tobacco: Never Assessed Comments Unknown Sex and Gender Information Value Date Recorded Sex Assigned at Not on file 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
--- OUTSIDE RECORDS SUMMARY | 2025-08-20 13:07 | XMS_ITS | Encounter Summary ---
Author Organization [employer] Address 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
== END 2025-08-20 09:44 | disposition home or self-care (01) ==
PROVIDERS: PCP Family Medicine; Visit Provider Nurse Practitioner Family
DX: R91.8 Other nonspecific abnormal finding of lung field (principal); J84.10 Pulmonary fibrosis, unspecified; J18.1 Lobar pneumonia, unspecified organism; A15.0 Tuberculosis of lung; J98.4 Other disorders of lung
CPT/HCPCS: 71260; Q9967

== ENCOUNTER 2025-08-20 10:21 | Outpatient (CLI) | payer MEDICARE, MEDICAID, SELFPAY ==
--- OUTSIDE RECORDS SUMMARY | 2007-07-13 06:24 | XMS_ITS | Continuity of Care Document ---
Author Organization [facility] Address [address] [place] [address] [address] [place] [address] Phone Care Team Providers Care Server Programmer Name Role Phone Camacho OD, Joaquin Unavailable Unavailable Procedures Procedure Date Eye Exam & Treatment Advance Directives Directive Yes / No Effective Date File Name No Information Encounters Encounter Description Practice Location Reason(s) For Visit Diagnoses Date Provider Providers Copied on Encounter [facility], [address], [place], [place], [id number], [place] tel:[phone] [facility] No Information 2-200 7 Camacho OD Joaquin. [address] , [address], [place], [address], [place]. tel:[phone] Family History Family Member Type Diagnosis Age At Onset No Information Payers Payer name Insurance type Covered republican ID Authoriza tion(s) Medicaid [facility] [id number] Social History Type Description Quantity Date Captured [...]
--- OUTSIDE RECORDS SUMMARY | 2007-07-13 06:24 | XMS_ITS | Continuity of Care Document ---
Author Organization [facility] Address [address] [place] [address] [address] [place] [address] Phone Care Team Providers Care Extrusion Die Template Maker Name Role Phone Camacho OD, Joaquin Unavailable Unavailable Procedures Procedure Date Eye Exam & Treatment Advance Directives Directive Yes / No Effective Date File Name No Information Encounters Encounter Description Practice Location Reason(s) For Visit Diagnoses Date Provider Providers Copied on Encounter [facility], [address], [place], [place], [address], [place] tel:[phone] [facility] No Information 2-200 7 Camacho OD Joaquin. [address] , [address], [place], [address], [place]. tel:[phone] Family History Family Member Type Diagnosis Age At Onset No Information Payers Payer name Insurance type Covered democrat ID Authoriza tion(s) Medicaid [facility] [id number] Social History Type Description Quantity Date Captured [...]
--- OUTSIDE RECORDS SUMMARY | 2007-07-13 06:24 | XMS_ITS | Continuity of Care Document ---
Author Organization [facility] Address [address] [place] [address] [address] [place] [address] Phone Care Team Providers Care Slide Machine Tender Name Role Phone Camacho OD, Joaquin Unavailable Unavailable Procedures Procedure Date Eye Exam & Treatment Advance Directives Directive Yes / No Effective Date File Name No Information Encounters Encounter Description Practice Location Reason(s) For Visit Diagnoses Date Provider Providers Copied on Encounter [facility], [address], [place], [place], [id number], [place] tel:[phone] [facility] No Information 2-200 7 Camacho OD Joaquin. [address] , [address], [place], [address], [place]. tel:[phone] Family History Family Member Type Diagnosis Age At Onset No Information Payers Payer name Insurance type Covered alliance party ID Authoriza tion(s) Medicaid [facility] [id number] Social History Type Description Quantity Date Captured [...]
--- OUTSIDE RECORDS SUMMARY | 2007-07-13 06:24 | XMS_ITS | Continuity of Care Document ---
Author Organization [facility] Address [address] [place] [address] [address] [place] [address] Phone Care Team Providers Care Robot Designer Name Role Phone Camacho OD, Joaquin Unavailable Unavailable Procedures Procedure Date Eye Exam & Treatment Advance Directives Directive Yes / No Effective Date File Name No Information Encounters Encounter Description Practice Location Reason(s) For Visit Diagnoses Date Provider Providers Copied on Encounter [facility], [address], [place], [place], [address], [place] tel:[phone] [facility] No Information 2-200 7 Camacho OD Joaquin. [address] , [address], [place], [address], [place]. tel:[phone] Family History Family Member Type Diagnosis Age At Onset No Information Payers Payer name Insurance type Covered libertarian ID Authoriza tion(s) Medicaid [facility] [id number] Social History Type Description Quantity Date Captured [...]
--- OUTSIDE RECORDS SUMMARY | 2007-07-13 06:24 | XMS_ITS | Continuity of Care Document ---
Author Organization [facility] Address [address] [place] [address] [address] [place] [address] Phone Care Team Providers Care Keg Raiser Name Role Phone Camacho OD, Joaquin Unavailable Unavailable Procedures Procedure Date Eye Exam & Treatment Advance Directives Directive Yes / No Effective Date File Name No Information Encounters Encounter Description Practice Location Reason(s) For Visit Diagnoses Date Provider Providers Copied on Encounter [facility], [address], [place], [place], [address], [place] tel:[phone] [facility] No Information 2-200 7 Camacho OD Joaquin. [address] , [address], [place], [address], [place]. tel:[phone] Family History Family Member Type Diagnosis Age At Onset No Information Payers Payer name Insurance type Covered republican ID Authoriza tion(s) Medicaid [facility] [id number] Social History Type Description Quantity Date Captured [...]
--- OUTSIDE RECORDS SUMMARY | 2007-07-13 06:24 | XMS_ITS | Continuity of Care Document ---
Author Organization [facility] Address [address] [place] [address] [address] [place] [address] Phone Care Team Providers Care Spiritual Care Coordinator Name Role Phone Camacho OD, Joaquin Unavailable Unavailable Procedures Procedure Date Eye Exam & Treatment Advance Directives Directive Yes / No Effective Date File Name No Information Encounters Encounter Description Practice Location Reason(s) For Visit Diagnoses Date Provider Providers Copied on Encounter [facility], [address], [place], [place], [address], [place] tel:[phone] [facility] No Information 2-200 7 Camacho OD Joaquin. [address], [place], [address], [place]. tel:[phone] Family History Family Member Type Diagnosis Age At Onset No Information Payers Payer name Insurance type Covered libertarian ID Authoriza tion(s) Medicaid [facility] [id number] Social History Type Description Quantity Date Captured [...]
--- OUTSIDE RECORDS SUMMARY | 2007-07-13 06:24 | XMS_ITS | Continuity of Care Document ---
Author Organization [facility] Address [address] [place] [address] [address] [place] [address] Phone Care Team Providers Care Housing Court Judge Name Role Phone Camacho OD, Joaquin Unavailable Unavailable Procedures Procedure Date Eye Exam & Treatment Advance Directives Directive Yes / No Effective Date File Name No Information Encounters Encounter Description Practice Location Reason(s) For Visit Diagnoses Date Provider Providers Copied on Encounter [facility], [address], [place], [place], [address], [place] tel:[phone] [facility] No Information 2-200 7 Camacho OD Joaquin. [address], [place], [address], [place]. tel:[phone] Family History Family Member Type Diagnosis Age At Onset No Information Payers Payer name Insurance type Covered constitution party ID Authoriza tion(s) Medicaid [facility] [id number] Social History Type Description Quantity Date Captured [...]
--- OUTSIDE RECORDS SUMMARY | 2007-07-13 06:24 | XMS_ITS | Continuity of Care Document ---
Author Organization [facility] Address [address] [place] [address] [address] [place] [address] Phone Care Team Providers Care Airport Manager Name Role Phone Camacho OD, Joaquin Unavailable Unavailable Procedures Procedure Date Eye Exam & Treatment Advance Directives Directive Yes / No Effective Date File Name No Information Encounters Encounter Description Practice Location Reason(s) For Visit Diagnoses Date Provider Providers Copied on Encounter [facility], [address], [place], [place], [address], [place] tel:[phone] [facility] No Information 2-200 7 Camacho OD Joaquin. [address] , [address], [place], [address], [place]. tel:[phone] Family History Family Member Type Diagnosis Age At Onset No Information Payers Payer name Insurance type Covered green party ID Authoriza tion(s) Medicaid [facility] [id number] Social History Type Description Quantity Date Captured [...]
--- OUTSIDE RECORDS SUMMARY | 2007-07-13 06:24 | XMS_ITS | Continuity of Care Document ---
Author Organization [facility] Address [address] [place] [address] [address] [place] [address] Phone Care Team Providers Care Chainer Name Role Phone Camacho OD, Joaquin Unavailable Unavailable Procedures Procedure Date Eye Exam & Treatment Advance Directives Directive Yes / No Effective Date File Name No Information Encounters Encounter Description Practice Location Reason(s) For Visit Diagnoses Date Provider Providers Copied on Encounter [facility], [address], [place], [place], [address], [place] tel:[phone] [facility] No Information 2-200 7 Camacho OD Joaquin. [address], [place], [address], [place]. tel:[phone] Family History Family Member Type Diagnosis Age At Onset No Information Payers Payer name Insurance type Covered constitution party ID Authoriza tion(s) Medicaid [facility] [id number] Social History Type Description Quantity Date Captured [...]
--- OUTSIDE RECORDS SUMMARY | 2025-06-17 03:40 | XMS_ITS ---
Author Organization [facility] Address [address] [place], [place] [address] Care Team Providers Care Contaminated Land Consultant Name Role Phone Rosa Maria Pelayo Roxana [phone] REASON FOR VISIT BLIND AIDE/ Possible Nodules on Thyroid Encounters Encounter Location Date Provider Diagnosis [address] [address] [place] [address] 06/17/2025 Rosa Maria Pelayo Plan Of Treatment No Information Progress Notes * Rito PAOB:1960 (65 yo F)Acc No.[id number]:06/17/2025 Progress Notes Patient: iG Campuzano Provider: Cristopher Pelayo MD :1960 A ge:65 Y S ex:Female Date:06/17/2025 Phone: Address:[address] [place] [address] Subjective: * Chief Complaints: * N P/ Possible Nodules on Thyroid * Electronic signature of Christopher Pelayo MD on 08/20/2025 at 02:44 PM WOUND CARE PHYSICIAN Sign off status: Pending * Provider: Cristopher Pelayo MD Date: 0 06/17/2025 Generated for Lala winter/Blessing/eTransmitting on: 1 10/20/2024 02:44 PM WOUND CARE PHYSICIAN
--- OUTSIDE RECORDS SUMMARY | 2025-07-17 05:40 | XMS_ITS ---
Author Organization Medical [facility] Address [address] [place], [place] [address] Care Team Providers Care Sample Examiner Name Role Phone Rosa Maria Pelayo Roxana [phone] REASON FOR VISIT Possible Nodule On Thyroid Encounters Encounter Location Date Provider Diagnosis 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
--- OUTSIDE RECORDS SUMMARY | 2025-08-06 04:21 | XMS_ITS | Continuity of Care Document ---
Author Organization [facility] Address [address] [place] [address] Phone Care Team Providers Care Supervisor Chassis Assembly Name Role Phone Kasia FREDERICK, FACWilliam, Marcin Unavailable Unavail able Allergies, Adverse Reactions, Alerts Substance Reaction Status Criticality No Known Allergies Active No Inform ation Medications Medication Instructions Dosage Effective Dates (start - stop) Status Comments diltiazem 30 mg tablet TAKE 1 TABLET BY MOUTH THREE TIMES DAILY - Active amitriptyline 100 mg tablet TAKE 1 TABLET BY MOUTH EVERY DAY AT BEDTIME - Active bupropion HCl XL 300 mg 24 hr tablet, extended release - Active amoxicillin 875 mg-potassium clavulanate 125 mg tablet TAKE 1 TABLET BY MOUTH EVERY 12 HOURS FOR 10 DAYS - Active mirtazapine 7.5 mg tablet TAKE 1 TABLET BY MOUTH EVERY DAY AT BEDTIME - Active Mounjaro 2.5 mg/0.5 mL subcutaneous pen injector INJECT 2.5 MG SUBCUTANEOUSLY ONCE WEEKLY - Active Accu-Chek Angelic Plus test strips - Active Synjardy 12.5 mg-1,000 mg tablet TAKE 1 TABLET BY MOUTH TWICE DAILY IN THE MORNING AND IN THE EVENING - Active gabapentin 300 mg capsule TAKE 1 CAPSULE BY MOUTH IN THE MORNING , 1 AT NOON 2 AT BEDTIME - Active albuterol sulfate HFA 90 mcg/actuation aerosol inhaler INHALE 2 PUFFS BY MOUTH EVERY 4 HOURS NEEDED FOR SHORTNESS OF BREATH - Active levofloxacin 750 mg tablet - Active prednisone 20 mg tablet - Active ergocalciferol (vitamin D2) 1,250 mcg (50,000 unit) capsule - Active amitriptyline 25 mg tablet - Active Breztri Aerosphere 160 mcg-9mcg-4.8mcg/actua tion HFA aerosol inhaler INHALE 2 PUFFS TWICE DAILY - Active glimepiride 4 mg tablet TAKE 1 TABLET BY MOUTH ONCE DAILY BEFORE BREAKFAST - Active buspirone 10 mg tablet - Active ibuprofen 600 mg tablet - Active rosuvastatin 40 mg tablet - Active losartan 25 mg tablet TAKE 1 TABLET BY MOUTH ONCE DAILY AT NIGHT - Active nitrofurantoin monohydrate/macrocrys tals 100 mg capsule - Active sodium,potassium,mag sulfates 17.5 gram-3.13 gram-1.6 gram oral soln - Active cephalexin 500 mg capsule TAKE 1 CAPSULE BY MOUTH TWICE A DAY - Active fluticasone propionate 50 mcg/actuation nasal spray,suspension - Active prednisone 10 mg tablet - Active azithromycin 250 mg tablet - Active cefdinir 300 mg capsule - Active Paxlovid 300 mg (150 mg x 2)-100 mg tablets in a dose pack - Active amoxicillin 500 mg capsule - Active glimepiride 2 mg tablet - Active bupropion HCl SR 150 mg tablet,12 hr sustained-release TAKE 1 TABLET BY MOUTH ONCE DAILY IN THE MORNING - Active doxycycline hyclate 100 mg capsule TAKE 1 CAPSULE BY MOUTH TWICE DAILY - Active BYDUREON BCISE INJ INJECT 1 SYRINGE SUBCUTANEOUSLY ONCE A WEEK - Active diltiazem 30 mg tablet TAKE 1 TABLET BY MOUTH THREE TIMES DAILY - No Longer Active Advance Directives Directive Yes / No Effective Date File Name No Information Encounters Encounter Description Practice Location Reason(s) For Visit Diagnoses Date Provider Providers Copied on Encounter [facility], [address] [place] [address], [id number] , tel: [phone] [facility] [place] No Information [facility]. [address] [place] [address], [id number] , [place]. tel: [phone] [facility], [address] [place] [address], [id number] , tel: [phone] [facility] [place] No Information [facility]. [address] [place], [place] [address], [id number] , . tel: [phone] [facility], [address] [place] [address], [id number] , tel: [phone] [facility] [place] Unspecified right bundle-branch blockShortness of breathUnspecified atrial fibrillationPalpitati onsEssential (primary) hypertensionFamily history of ischemic heart disease and other diseases of the circulatory systemAtherosclerotic heart disease of [place] coronary artery without angina pectorisOther chest pain [facility]. [address] [place], [place] [address], [id number] , . tel: [phone] Family History Family Member Type Diagnosis Age At Onset Problem (finding) Family history of heart disease Payers Payer name Insurance type Covered alliance party ID Authoriza tion(s) No Information Social History Type Description Quantity Date Captured Comments Sex Female Smoking Status No Information Chief Complaint And Reason For Visit No Information Reason For Referral Reason For Referral No Information Plan Of Treatment Date Type Action Status Appointment Priya Puga BOOKED History Of Present Illness Encounter Date Complaint History Of Prese nt Illness No Information Functional Status Date Functional Assessmen t No Information Instructions Date Instruction Additional Infor mation No Information Assessments Type Assessment Date No Information Patient Care Teams Name Effective Dates (start - stop) Status Members No Information
--- OUTSIDE RECORDS SUMMARY | 2025-08-06 04:21 | XMS_ITS | Continuity of Care Document ---
Author Organization [facility] Address [address] [place] [phone] Phone Care Team Providers Care Sand Screener Operator Name Role Phone Kasia FREDERICK, FACWilliam, Marcin [...] Diagnoses Date Provider Providers Copied on Encounter [facility], [address] [place] [address], [id number] , tel: [phone] [facility] [place] No Information [facility]. [address] [place] [address], [id number] , [place]. tel: [phone] [facility], [address] [place] [address], [id number] , tel: [phone] [facility] [place] No Information [facility]. [address] [place], [place] [address], [place], [id number] , . tel: [phone] [facility], [address] [place] [address], [id number] , tel: [phone] [facility] [place] Unspecified right bundle-branch blockShortness of breathUnspecified atrial fibrillationPalpitati onsEssential (primary) hypertensionFamily history of ischemic heart disease and other diseases of the circulatory systemAtherosclerotic heart disease of [place] coronary artery without angina pectorisOther chest pain [facility]. [address] [place], [place] [address], [place], [id number] , . tel: [phone] Family History Family Member Type Diagnosis Age At Onset Problem (finding) Family history of heart disease Payers Payer name Insurance type Covered constitution party ID Authoriza tion(s) No Information Social [...]
--- OUTSIDE RECORDS SUMMARY | 2025-08-06 04:21 | XMS_ITS | Continuity of Care Document ---
Author Organization [facility] Address [address] [place] [phone] Phone Care Team Providers Care Chemical Laboratory Technician Name Role Phone Kasia FREDERICK, FACWilliam, Marcin [...] Diagnoses Date Provider Providers Copied on Encounter [facility], [address] [place] [address], [id number] , tel: [phone] [facility] [place] No Information [facility]. [address] [place] [address], [id number] , [place]. tel: [phone] [facility], [address] [place] [address], [id number] , tel: [phone] [facility] [place] No Information [facility]. [address] [place], [place] [address], [place], [id number] , . tel: [phone] [facility], [address] [place] [address], [id number] , tel: [phone] [facility] [place] Unspecified right bundle-branch blockShortness of breathUnspecified atrial fibrillationPalpitati onsEssential (primary) hypertensionFamily history of ischemic heart disease and other diseases of the circulatory systemAtherosclerotic heart disease of [place] coronary artery without angina pectorisOther chest pain [facility]. [address] [place], [place] [address], [place], [id number] , . tel: [phone] Family History Family Member Type Diagnosis Age [...]
--- OUTSIDE RECORDS SUMMARY | 2025-08-06 04:21 | XMS_ITS | Continuity of Care Document ---
Author Organization [facility] Address [address] [place] [phone] Phone Care Team Providers Care Picture Frames Inspector Name Role Phone Kasia FREDERICK, FACWilliam, Marcin [...] Diagnoses Date Provider Providers Copied on Encounter [facility], [address] [place] [address], [id number] , tel: [phone] [facility] [place] No Information [facility]. [address] [place] [address], [id number] , [place]. tel: [phone] [facility], [address] [place] [address], [id number] , tel: [phone] [facility] [place] No Information [facility]. [address] [place], [place] [address], [place], [id number] , . tel: [phone] [facility], [address] [place] [address], [id number] , tel: [phone] [facility] [place] Unspecified right bundle-branch blockShortness of breathUnspecified atrial fibrillationPalpitati onsEssential (primary) hypertensionFamily history of ischemic heart disease and other diseases of the circulatory systemAtherosclerotic heart disease of [place] coronary artery without angina pectorisOther chest pain [facility]. [address] [place], [place] [address], [id number] , . tel: [phone] Family History Family Member Type Diagnosis Age At Onset Problem (finding) Family history of heart disease Payers Payer name Insurance type Covered libertarian ID Authoriza tion(s) No Information Social History [...]
--- OUTSIDE RECORDS SUMMARY | 2025-08-06 04:21 | XMS_ITS | Continuity of Care Document ---
Author Organization [facility] Address [address] [place] [phone] Phone Care Team Providers Care Educational Sign Language Interpreter Name Role Phone Kasia FREDERICK, FACWilliam, Marcin [...] Diagnoses Date Provider Providers Copied on Encounter [facility], [address] [place] [address], [id number] , tel: [phone] [facility] [place] No Information [facility]. [address] [place] [address], [id number] , [place]. tel: [phone] [facility], [address] [place] [address], [id number] , tel: [phone] [facility] [place] No Information [facility]. [address] [place], [place] [address], [place], [id number] , . tel: [phone] [facility], [address] [place] [address], [id number] , tel: [phone] [facility] [place] Unspecified right bundle-branch blockShortness of breathUnspecified atrial fibrillationPalpitati onsEssential (primary) hypertensionFamily history of ischemic heart disease and other diseases of the circulatory systemAtherosclerotic heart disease of [place] coronary artery without angina pectorisOther chest pain [facility]. [address] [place], [place] [address], [place], [id number] , . tel: [phone] Family History Family Member Type Diagnosis Age At Onset Problem (finding) Family history of heart disease Payers Payer name Insurance type Covered democrat ID Authoriza tion(s) No Information Social History [...]
--- OUTSIDE RECORDS SUMMARY | 2025-08-06 04:21 | XMS_ITS | Continuity of Care Document ---
Author Organization [facility] Address [address] [place] [phone] Phone Care Team Providers Care Whiting Machine Operator Name Role Phone Kasia FREDERICK, FACWilliam, [...] Diagnoses Date Provider Providers Copied on Encounter [facility], [address] [place] [address], [id number] , tel: [phone] [facility] [place] No Information [facility]. [address] [place] [address], [id number] , [place]. tel: [phone] [facility], [address] [place] [address], [id number] , tel: [phone] [facility] [place] No Information [facility]. [address] [place], [place] [address], [place], [id number] , . tel: [phone] [facility], [address] [place] [address], [id number] , tel: [phone] [facility] [place] Unspecified right bundle-branch blockShortness of breathUnspecified atrial fibrillationPalpitati onsEssential (primary) hypertensionFamily history of ischemic heart disease and other diseases of the circulatory systemAtherosclerotic heart disease of [place] coronary artery without angina pectorisOther chest pain [facility]. [address] [place], [place] [address], [place], [id number] , . tel: [phone] Family History Family Member Type Diagnosis Age [...]
--- OUTSIDE RECORDS SUMMARY | 2025-08-06 04:21 | XMS_ITS | Continuity of Care Document ---
Author Organization [facility] Address [address] [place] [phone] Phone Care Team Providers Care Rug Cleaning Supervisor Name Role Phone Kasia FREDERICK, FACWilliam, Marcin [...] Diagnoses Date Provider Providers Copied on Encounter [facility], [address] [place] [address], [id number] , tel: [phone] [facility] [place] No Information [facility]. [address] [place] [address], [id number] , [place]. tel: [phone] [facility], [address] [place] [address], [id number] , tel: [phone] [facility] [place] No Information [facility]. [address] [place], [place] [address], [place], [id number] , . tel: [phone] [facility], [address] [place] [address], [id number] , tel: [phone] [facility] [place] Unspecified right bundle-branch blockShortness of breathUnspecified atrial fibrillationPalpitati onsEssential (primary) hypertensionFamily history of ischemic heart disease and other diseases of the circulatory systemAtherosclerotic heart disease of [place] coronary artery without angina pectorisOther chest pain [facility]. [address] [place], [place] [address], [place], [id number] , . tel: [phone] Family History Family Member Type Diagnosis Age [...]
--- OUTSIDE RECORDS SUMMARY | 2025-08-06 04:21 | XMS_ITS | Continuity of Care Document ---
Author Organization [facility] Address [address] [place] [phone] Phone Care Team Providers Care Asphalt Layer Name Role Phone Kasia FREDERICK, FACWilliam, Marcin [...] Diagnoses Date Provider Providers Copied on Encounter [facility], [address] [place] [address], [id number] , tel: [phone] [facility] [place] No Information [facility]. [address] [place] [address], [id number] , [place]. tel: [phone] [facility], [address] [place] [address], [id number] , tel: [phone] [facility] [place] No Information [facility]. [address] [place], [place] [address], [place], [id number] , . tel: [phone] [facility], [address] [place] [address], [id number] , tel: [phone] [facility] [place] Unspecified right bundle-branch blockShortness of breathUnspecified atrial fibrillationPalpitati onsEssential (primary) hypertensionFamily history of ischemic heart disease and other diseases of the circulatory systemAtherosclerotic heart disease of [place] coronary artery without angina pectorisOther chest pain [facility]. [address] [place], [place] [address], [place], [id number] , . tel: [phone] Family History Family Member Type Diagnosis Age [...] Of Treatment Date Type Action Status Appointment Pryia Puga BOOKED History Of Present Illness Encounter Date Complaint History Of Prese nt Illness No Information Functional Status Date Functional Assessmen t No Information Instructions Date Instruction Additional Infor mation No Information Assessments Type Assessment Date No Information Patient Care Teams Name Effective Dates (start - stop) Status Members No Information
--- OUTSIDE RECORDS SUMMARY | 2025-08-06 04:21 | XMS_ITS | Continuity of Care Document ---
Author Organization [facility] Address [address] [place] [phone] Phone Care Team Providers Care Study Specialist Name Role Phone Kasia FREDERICK, FACWilliam, [...] Diagnoses Date Provider Providers Copied on Encounter [facility], [address] [place] [address], [id number] , tel: [phone] [facility] [place] No Information [facility]. [address] [place] [address], [id number] , [place]. tel: [phone] [facility], [address] [place] [address], [id number] , tel: [phone] [facility] [place] No Information [facility]. [address] [place], [place] [address], [place], [id number] , . tel: [phone] [facility], [address] [place] [address], [id number] , tel: [phone] [facility] [place] Unspecified right bundle-branch blockShortness of breathUnspecified atrial fibrillationPalpitati onsEssential (primary) hypertensionFamily history of ischemic heart disease and other diseases of the circulatory systemAtherosclerotic heart disease of [place] coronary artery without angina pectorisOther chest pain [facility]. [address] [place], [place] [address], [place], [id number] , . tel: [phone] Family History Family Member Type Diagnosis Age At Onset Problem (finding) Family history of heart disease Payers Payer name Insurance type Covered republican ID Authoriza tion(s) No Information Social History [...]
--- OUTSIDE RECORDS SUMMARY | 2025-08-06 04:21 | XMS_ITS | Continuity of Care Document ---
Author Organization [facility] Address [address] [place] [phone] Phone Care Team Providers Care Exhibition Organiser Name Role Phone Kasia FREDERICK, FACWilliam, Marcin [...] Diagnoses Date Provider Providers Copied on Encounter [facility], [address] [place] [address], [id number] , tel: [phone] [facility] [place] No Information [facility]. [address] [place] [address], [id number] , [place]. tel: [phone] [facility], [address] [place] [address], [id number] , tel: [phone] [facility] [place] No Information [facility]. [address] [place], [place] [address], [place], [id number] , . tel: [phone] [facility], [address] [place] [address], [id number] , tel: [phone] [facility] [place] Unspecified right bundle-branch blockShortness of breathUnspecified atrial fibrillationPalpitati onsEssential (primary) hypertensionFamily history of ischemic heart disease and other diseases of the circulatory systemAtherosclerotic heart disease of [place] coronary artery without angina pectorisOther chest pain [facility]. [address] [place], [place] [address], [place], [id number] , . tel: [phone] Family History Family Member Type Diagnosis Age [...]
--- NOTE | ~2025-08-20 | MM_ITS ---
EXAMINATION: MM screening annie LT w mica INDICATION: Asymptomatic, referred for screening mammogram. History of Right mastectomy 1988. COMPARISON: 11/14/2016 through 11/20/2007 TECHNIQUE: Digital Breast Tomosynthesis CC, MLO views were obtained of LEFT breast with computer-aided detection to assist in interpretation of the study. FINDINGS: There are scattered areas of fibroglandular density. No focal dominant mass, architectural distortion, or suspicious microcalcifications are identified. There are no features to suggest malignancy. IMPRESSION: 1. No mammographic evidence of malignancy. 2. Recommend routine screening mammography in one year. BI-RADS Category 1: Negative Reviewed, dictated and finalized at location B. ISTICAL CLERK
--- OUTSIDE RECORDS SUMMARY | 2025-08-20 14:44 | XMS_ITS | Clinical Summary ---
Author Organization [facility] Address [address] [place] [address] Care Team Providers Care Facilities Maintenance Technician Name Role Phone Boris Segundo MD Primary Care Provider [phone] Daniel Paulino MD Unavailable [phone] Chicho Brannon MD Unavailable [phone] Allergies Active Allergy Reactions Criticality Noted [...] Active Additional Information Patient not taking.Reported on 02/25/2025 busPIRone (BUSPAR) 10 mg tablet Take 1 [...] 2 tablets by mouth daily 4 Active Mounjaro 2.5 mg/0.5 mL pen injector injection Inject 0.5 mL (2.5 mg total) under the skin once a week 5 Active sodium, potassium & mag sulfates (Suprep Bowel Prep Kit) 17.5-3.13-1.6 gram recon solnIndications: Bowel Evacuation Drink first half of prep at 6:00 pm the night before procedure. Drink second half of prep 4 hours prior to leaving home for procedure. 354 mL 5 Active Active Problems Problem Noted Date Diagnosed Date Rectal bleeding 04/10/2025 Dyspnea on exertion 03/19/2025 Retained ureteral stent 12/01/2020 Overview (12/01/2020): Possible retained ureteral stent, Unable to reach patient for ureteral stent removal. If patient presents to your facility please call Urology at [phone] History of rectal cancer 12/05/2019 Overview (12/05/2019): Added automatically from request for surgery [id number] Screen for colon cancer 10/04/2019 Overview (10/04/2019): Added automatically from request for surgery [id number] Calculus of ureter 04/21/2019 Right ureteral stone [...] Medical History Medical History Date Comments Diabetes Arthritis Depression Anxiety Breast cancer (HCC) 1988 Kidney stone Motion sickness Hyperlipidemia Type 2 diabetes mellitus Rectal cancer (HCC) GERD (gastroesophageal reflux disease) Dysphagia COPD (chronic obstructive pulmonary disease) Colon polyp Sleep apnea History of angina Neuropathy Depression Family History Medical History Relation Name Comments Diabetes Father Heart disease Father Diabetes Mother Heart disease Mother Colon cancer Paternal Grandfather Relation Name Status Comments Father Mother Paternal Grandfather Social History Tobacco Use Types Packs/Day Years Used Date Smoking Tobacco: Every Day Cigarettes 1.5 47.9 Started: 1977 Passive Smoke Exposure: Never Smokeless Tobacco: Never Tobacco Cessation:Ready to Q uit: Not Asked; Counseling Given: Not Answered Comments:Pt trying the patch Alcohol Use Standard Drinks/Week Comments No 0 (1 standard drink = 0.6 oz pur e alcohol) AUDIT-C Answer Date Recorded Q1: How often do you have a drink containing alcohol? Never 04/25/2025 Q2: How many drinks containi ng alcohol do you have on a typical day when you are drinking? Patient does not drink Q3: How often do you have si x or more drinks on one occasion? Never 04/25/2025 Hunger Vital Sign Answer Date Recorded Within the past 12 months, y ou worried that your food would run out before you got the money to buy more. Never true 03/14/20 Within the past 12 months, t he food you bought just didn't last and you didn't have money to get more. Never true 03/14/2025 Personal Safety Answer Date Recorded Have you ever been in or are you currently in a harmful physical or emotional relationship or is someone making you feel afraid or unsafe? Denies 04/25/2025 Comments No Sex and Gender Information Value Date Recorded Sex Assigned at Not on file Legal Sex Female 11:04 PM PERSONAL CARE AID Gender Identity Not on file Sexual Orientation Not on file Last Filed Vital Signs Vital Sign Reading Time Taken Comments Blood Pressure 103/66 04/25/2025 11:28 AM CDT Pulse 87 04/25/2025 11:28 AM CDT Temperature 36 C (96.8 F) 04/25/2025 10:53 AM CDT Respiratory Rate 21 04/25/2025 11:28 AM CDT Oxygen Saturation 98% 04/25/2025 11:28 AM CDT Inhaled Oxygen Concentration - - Weight 55.6 kg (122 lb 9.6 oz) 04/25/2025 9:18 A M CDT Height 162.6 cm (5' 4) 04/25/2025 9:18 AM CDT Body Mass Index 21.04 04/25/2025 9:18 AM CDT Plan of Treatment Health Maintenance Due Date Last Done Comments Breast Cancer Screening-Mammogram 1960 Depression Screening 1960 Hepatitis C Screening 1960 DTaP/Tdap/Td Vaccine (1 - Tdap) 1972 Hepatitis B Screening 1979 Regular Well Visit/Exam 18-64 1979 Pneumococcal vaccine <65 (1 of 2 - PCV) 1980 Zoster Vaccine (1 of 2) 2011 Influenza Vaccine (#1) 2025 08/02/2013 Lung Cancer Screening 02/25/2026 02/25/2025 Colon Cancer Screening-Colonoscopy 04/25/2035 04/25/2025, 07/10/2023, 07/06/2020, Additional history exists Colon Cancer Screening-CT Colonography Discontinued 04/25/2025, 11/25/2024, 07/10/2023, Additional history exists Colon Cancer Screening-DNA Stool Discontinued 04/25/2025, 11/25/2024, 07/10/2023, Additional history exists Colon Cancer Screening-FIT Discontinued 04/25, 11/25/2024, 07/10/2023, Additional history exists Colon Cancer Screening-Sigmoidoscopy Discontinued 04/25/2025, 11/25/2024, 07/10/2023, Additional history exists Medical Devices Implanted Type Area Geological Specialist Device Identifier Shelf Expiration Date Model / Serial / Lot Med Comp Dignity Port Implanted:Qty : 1 on 10/10/2018 at [facility] Catheter Right: Chest Medcomp [id number] 08/31/2022 / [id number] / [id number] Explanted Type Area Geological Specialist Device Identifier Shelf Expiration Date Model / Serial / Lot [employer] [id number] Inlay [place] 6fr 26cm Pusher Fluoro Marker Atraumatic Insertion Latex Free - [id number] Implanted:Qty: 1 on 06/18/2019 by Kyle Robison MD at [facility] Explanted:Qty: 1 on 11/21/2019 Right: Ureter [employer] 08/29/2023 [id number] / / Description:Removed per 11/21 MRI Procedures Procedure Name Priority Date/Time Associated Diagnosis Comments COLONOSCOPY 04/25/2025 10:[address] LUNG CANCER SCREENING Schedule Routine, Read Routine (OP Routine) 02/25/2025 7:45 AM CDT Personal history of nicotine dependence from Last 3 Months or Most Recently Relevant to Health Maintenance Results * Colonoscopy (04/25/2025 10:02 AM CDT) Anatomical Region Laterality Modality Other Narrative Procedure Note Chicho Brannon MD - 04/25/2025 10:02 AM CDT [facility] Patient Name: Priya Puga Procedure Date: 04/25/2025 10:02 AM Date of : 1960 Admit Type: Outpatient Age: 64 Gender: Female Attending MD: Chicho Brannon M.D., Room: [facility] ENDOSCOPY ROOM 02 Note Status: Finalized Procedure: Colonoscopy Indications: High risk colon cancer surveillance: Personalhistory of rectal cancer Referring MD: Giselle Almazan M.D. Providers: Chicho Brannon M.D. Medicines: Monitored Anesthesia Care Complications: No immediate complications. Estimated Blood Loss: [...] The scope was passed under direct vision.The [id number] was introduced through the anusand advanced to the the sigmoid colon for evaluation.This was the intended extent. The scope was passed under direct vision. The [id number] Endoscope was introduced through the anus and advanced to the the cecum, identified by appendiceal orifice andileocecal valve. The colonoscopy was performed without difficulty. The patient tolerated the procedurewell. The quality of the bowel preparation was good. The bowel preparation used was SUPREP. Findings: The perianal and digital rectal examinations were normal. The site of the rectal cancer was visualized. There was a clean scar without ulceration or other visible evidence of recurrence. There was non-bleeding adjacent telangectasia. The exam was otherwise without abnormality. Impression: - The examination was otherwise normal. - No specimens collected. - No evidence of residual or recurrent cancer Recommendation: - Repeat colonoscopy in 5 years for surveillance. Attending Participation: I was present and participated during the entire procedure, including non-arguello portions. Electronically signed by Phan Brannon Chicho Brannon M.D. 04/25/2025 10:49:38 AM Number of Addenda: 0 Note Initiated On: 04/25/2025 10:02 AM Recognized by the [employer] for promoting quality in endoscopy us Chicho Brannon MD ENDOSCOPY PROCEDURES Final Res ult * CT Lung Cancer Screening (02/25/2025 7:45 AM CDT) Anatomical Region Laterality Modality Chest N/A Computed Tomogra phy 02/25/2025 7:53 AM CDT Impressions 02/25/2025 7:53 AM CDT IMPRESSION: 1. LungRADS Category 0 (incomplete) . Recommend Low dose CT of chest in 1 month. 2. This study is incomplete because of findings suggesting an infectious pneumonia superimposed on emphysema. Findings could be indicative of an atypical infection such as mycobacterial infection versus a community acquired pneumonia. 3. There is a new nodule in the right upper lobe which could represent metastatic disease. This can be evaluated on the short-term follow-up study. LungRADS Categories: 1 - Negative (no nodules, or only benign calcified or fat-containing nodules) 2 - Benign Appearance or Behavior (nodules with very low likelihood of becoming a clinically active cancer due to size or lack of growth) 3 - Probably Benign (probably benign findings-short term follow up suggested; includes nodules with a low likelihood of becoming a clinically active cancer) 4A,4B,4X - Suspicious (category 3 or 4 nodules with findings for which additional diagnostic testing and/or tissue sampling is recommended) S - Other (clinically significant or potentially clinically significant findings (non-lung cancer) C - Prior Lung Cancer (modifier for patients with a prior diagnosis of lung cancer who return to screening) Electronically signed by: Jacoby Tejada M.D. Narrative 02/25/2025 7:53 AM CDT EXAMINATION: Lung cancer screening CT of the Chest without intravenous contrast HISTORY: Lung Cancer Screening TECHNIQUE: Low radiation dose chest protocol. No intravenous contrast. Reconstructed slice width 1.[address] Dose Index 0.66 mGy. Dose-length product 23 mGy-cm. COMPARISON: 06/13/2024 FINDINGS: No supraclavicular, axillary lymphadenopathy. Tiny mediastinal lymph nodes are without change when compared to the prior study. The heart size is mildly enlarged but unchanged. No pleural or pericardial effusion. The adrenal glands are normal. A small splenic artery aneurysm is again seen without change. The lung windows again show severe emphysema with an apical predominance but no dominant bulla or bleb. The following noncalcified nodules are seen: 1. A new nodule is seen within the right upper lobe at 84.3 that measures 4.6 x 6.0 mm 2. Within the right middle lobe and area of nodular thickening is seen surrounding bullae at slice position 1-5.6. Findings are concerning for infectious pneumonia. Similar findings are seen in the right middle lobe at 1 7.6 and within the right lower lobe at slice position 190.7. There is no pleural or pericardial effusion. Mild reticulation lung bases may be indicative of some smoking-related interstitial fibrosis. Diffuse osteopenia is seen. Chang Downey MD IMG CT PROCEDURES Final Re sult from Last 3 Months or Most Recently Relevant to Health Maintenance Insurance [facility] MEDICARE ADVANTAGE [facility] MDCR HMO REF IDPA [facility] MEDICARE ADVANTAGE Advance Directives For more information, please contact: [phone] * Full Code (Latest Code Status on File) Date Activated Date Inactivated Comments 04/25/2025 9:22 AM 04/25/2025 3:43 PM * Full Code Date Activated Date Inactivated Comments 11/25/2024 2:24 PM 11/25/2024 7:38 PM * Full Code Date Activated Date Inactivated Comments 07/10/2023 6:19 AM 07/10/2023 1:45 PM * Full Code Date Activated Date Inactivated Comments 07/06/2020 9:30 AM 07/06/2020 6:32 PM * Full Code Date Activated Date Inactivated Comments 01/07/2020 2:39 PM 01/07/2020 8:48 PM Care Teams Facilities Maintenance Technician Relationship Specialty Start Date End Date Boris Segundo MD PCP - General Family Medicine 09/07/18 Daniel Paulino MD Radiation Oncologist Radiation Oncology 09/18/18 Chicho Brannon MD [id number] [place] [address] Surgeon Colon and Rectal Surgery 06/17/21 Jarred Vigil DO [address] [facility] [id number] Referring Physician Internal Medicine 09/06/18
--- OUTSIDE RECORDS SUMMARY | 2025-08-20 14:44 | XMS_ITS | Data Portability ---
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 Plan of Treatment Reminders Order Date Submit Date Provider Last Modified By Organization Details Last Modified Time Details Appointments None recorded. Lab TSH + free T4, serum 2022 023 [facility], [address], [place], [address], 3 14:40:28 thyroid peroxidase (tpo) Ab, serum 2022 023 [facility], [address], [place], [address], 3 09:27:11 calcitonin, serum 2022 023 [facility], [address], [place], [address], 3 14:40:25 PTH (parathyroi d hormone), intact + calcium, serum or plasma 2022 023 [facility], [address], [place], [address], 3 14:40:30 T3, free, serum or [facility] [address], [place], [address], 3 09:27:11 HbA1c (hemoglobin A1c), blood [facility] [address], [place], [address], 3 14:40:32 CMP, serum or plasma [facility] [address], [place], [address], 3 14:40:27 microalbumi n/creatinin e, mass ratio, urine 2022 023 [facility], [address], [place], [address], 3 10:55:58 C-reactive protein, quantitativ e, serum or plasma 2022 023 [facility], [address], [place], [address], 3 09:27:09 rf (rheumatoid factor), serum 2022 023 [facility], [address], [place], [address], 3 09:27:07 erythrocyte sedimentati on rate by westergren method 2022 023 [facility] [address], [place], [address], 3 09:27:09 AMRIT (antinuclea r antibodies) screen, ifa, serum [facility] [address], [place], [address], 3 09:27:10 ccp (cyclic citrullinat ed peptide) igg, serum 2022 023 [employer] [facility], [address], [place], [address], 3 14:40:29 protein/cre atinine, ratio, 24h urine 2022 023 [facility], [address], [place], [address], 3 05:18:56 Referral None recorded. Procedures None recorded. Surgeries None recorded. Imaging None recorded. Medication Orders losartan 25 mg tablet 2022 023 [id number], [address] [facility], [place], [place], [id number], 3 14:39:11 Patient TargetsNo targets recorded. Patient InstructionsNo instructions recorded. Reason for Referral None Reported. Results Created Date Observation Date Name Description Value Unit Range Abnormal Flag Note LastModifiedBy Organization Detail LastModifiedTime 02/01/20 22 02/09/2022 HEMOG LOBIN A1C hemoglobin A1C 7.9 %_of_ total _HGB <5.7 high For someo ne witho ut known diabe quintin, a hemog lobin A1c value of 6.5% or great er indic ates that they may have diabe quintin and this shoul d be confi rmed with a follo w-up test. For someo ne with known diabe quintin, a value <7% indic ates that their diabe quintin is well contr olled and a value great er than or equal to 7% indic ates subop timal contr ol. A1c targe ts shoul d be indiv idual ized based on durat ion of diabe quintin, age, comor bid condi tions , and other consi derat ions. Curre ntly, no conse nsus exist s jazlyn hayes use of hemog lobin A1c for diagn osis of diabe quintin for child eileen. Not Available [facility] [address] [address] [place], [address], 02/09/2022 19:07:36 02/01/20 22 02/09/2022 TSH TSH 0.52 mIU/L 0.40-4 .50 normal Not Available [facility] [address] [address] [place], [address], 02/09/2022 19:07:36 02/01/20 22 02/09/2022 T4, FREE T4, free 1.3 NG/dL 0.8-1. 8 normal Not Available [facility] [address], [address], 02/09/2022 19:07:36 02/01/20 22 02/09/2022 THYRO ID PEROX IDASE ANTIB ODIES thyroid peroxidase antibodies <1 IU/mL <9 normal Not Available [facility] [address], [address], 02/09/2022 19:07:35 02/01/20 22 02/09/2022 T3, FREE, TRACE R DIALY SIS free T3 210 pg/dL 210-44 0 Pregn ava Refer ence Range s for Free T3: 200-3 80 pg/dL (all trime sters ) This test was devel oped and its ree tical perfo rmanc e steffen cteri stics have been deter mined by [facility] tran . It has not been clear ed or appro erasmo by FDA. This assay has been valid ated pursu ant to the CLIA regul ation s and is used for clini arik purpo ses. Not Available [facility] [address] [address] [place], [address], 02/09/2022 19:07:35 02/01/20 22 02/09/2022 T3, FREE, TRACE R DIALY SIS T3, total 86 NG/dL 76-181 Not Available [facility] [address] [address] [place], [address], 02/09/2022 19:07:35 02/01/20 22 02/09/2022 ALBUM IN, RANDO M URINE W/CRE ATINI NE creatinine, random urine 42 mg/dL 20-275 normal Not Available [address] [address] [place], [address], 02/09/2022 19:07:32 02/01/20 22 02/09/2022 ALBUM IN, RANDO M URINE W/CRE ATINI NE albumin, urine 6.1 mg/dL see note: normal Refer ence Range : Refer ence Range Not estab lishe d Not Available [address], [address], 02/09/2022 19:07:32 02/01/20 22 02/09/2022 ALBUM IN, RANDO M URINE W/CRE ATINI NE albumin/crea tinine ratio, random urine 145 mcg/m g_cre at <30 high The ADA defin es abnor malit ies in album in excre tion as follo ws: Album inuri a Categ ory Resul t (mcg/ mg creat inine ) Patti l to Mildl y incre ased <30 Moder ately incre ased 30-29 9 Sever dusty incre ased > OR = 300 The ADA recom mends that at least two of three speci mens colle cted withi n a 3-6 month perio d be abnor mal befor e consi gosia g a patie nt to be withi n a diagn ostic categ ory. Not Available [address] [address] [place], [address], 02/09/2022 19:07:32 02/01/20 22 02/09/2022 COMPR EHENS PILY METAB OLIC PANEL glucose 147 mg/dL 65-139 high Non-f astin g refer ence inter nilam Not Available [address] [place], [address], 02/09/2022 19:07:31 02/01/20 22 02/09/2022 COMPR EHENS PILY METAB OLIC PANEL urea nitrogen (BUN) 21 mg/dL 7-25 normal Not Available [address], [address], 02/09/2022 19:07:31 02/01/20 22 02/09/2022 COMPR EHENS PILY METAB OLIC PANEL creatinine 0.50 mg/dL 0.50-0 .99 normal For patie nts >49 years of age, the refer ence limit for Creat inine is appro ximat dusty 13% highe r for peopl e ident ified as Afric an-Am kael n. Not Available [address], [address], 02/09/2022 19:07:31 02/01/20 22 02/09/2022 COMPR EHENS PILY METAB OLIC PANEL eGFR non-afr. scottish 105 mL/mi n/1.7 3m2 > or = 60 normal Not Available [address] [address] [place], [address], 02/09/2022 19:07:31 02/01/20 22 02/09/2022 COMPR EHENS PILY METAB OLIC PANEL eGFR 122 mL/mi n/1.7 3m2 > or = 60 normal Not Available [address], [address], 02/09/2022 19:07:31 02/01/20 22 02/09/2022 COMPR EHENS PILY METAB OLIC PANEL BUN/creatini ne ratio not applic able (calc ) 6-22 Not Available [address], [address], 02/09/2022 19:07:31 02/01/20 22 02/09/2022 COMPR EHENS PILY METAB OLIC PANEL sodium 141 mmol/ L 135-14 6 normal Not Available [address], [address], 02/09/2022 19:07:31 02/01/20 22 02/09/2022 COMPR EHENS PILY METAB OLIC PANEL potassium 4.6 mmol/ L 3.5-5. 3 normal Not Available [address], [address], 02/09/2022 19:07:31 02/01/20 22 02/09/2022 COMPR EHENS PILY METAB OLIC PANEL chloride 105 mmol/ L 98-110 normal Not Available [address], [address], 02/09/2022 19:07:31 02/01/20 22 02/09/2022 COMPR EHENS PILY METAB OLIC PANEL carbon dioxide 30 mmol/ L 20-32 normal Not Available [address], [address], 02/09/2022 19:07:31 02/01/20 22 02/09/2022 COMPR EHENS PILY METAB OLIC PANEL calcium 9.3 mg/dL 8.6-10 .4 normal Not Available [address], [address], 02/09/2022 19:07:31 02/01/20 22 02/09/2022 COMPR EHENS PILY METAB OLIC PANEL protein, total 6.3 g/dL 6.1-8. 1 normal Not Available [address], [address], 02/09/2022 19:07:31 02/01/20 22 02/09/2022 COMPR EHENS PILY METAB OLIC PANEL albumin 4.3 g/dL 3.6-5. 1 normal Not Available [address], [address], 02/09/2022 19:07:31 02/01/20 22 02/09/2022 COMPR EHENS PILY METAB OLIC PANEL globulin 2.0 g/dL_ (calc ) 1.9-3. 7 normal Not Available [address], [address], 02/09/2022 19:07:31 02/01/20 22 02/09/2022 COMPR EHENS PILY METAB OLIC PANEL albumin/glob ulin ratio 2.2 (calc ) 1.0-2. 5 normal Not Available [address], [address], 02/09/2022 19:07:31 02/01/20 22 02/09/2022 COMPR EHENS PILY METAB OLIC PANEL bilirubin, total 0.4 mg/dL 0.2-1. 2 normal Not Available [address], [address], 02/09/2022 19:07:31 02/01/20 22 02/09/2022 COMPR EHENS PILY METAB OLIC PANEL alkaline phosphatase 116 U/L 37-153 normal Not Available [facility] [address], [address], 02/09/2022 19:07:31 02/01/20 22 02/09/2022 COMPR EHENS PILY METAB OLIC PANEL AST 11 U/L 10-35 normal Not Available [address], [address], 02/09/2022 19:07:31 02/01/20 22 02/09/2022 COMPR EHENS PILY METAB OLIC PANEL ALT 16 U/L 6-29 normal Not Available [facility] [address], [address], 02/09/2022 19:07:31 02/01/20 22 02/09/2022 PTH, INTAC T AND CALCI UM parathyroid hormone, intact 14 pg/mL 16-77 low Inter preti ve Guide Intac t PTH Calci um ----- ----- ----- --- ----- ----- ----- -- Patti l Parat hyroi d Patti l Patti l Hypop taina yroid ism Low or Low Patti l Low Hyper parat hyroi dism Prima ry Patti l or High High Secon priscilla High Patti l or Low Terti katja High High Non-P taina yroid Hyper calce shae Low or Low Patti l High Not Available [address], [address], 02/09/2022 19:07:31 02/01/20 22 02/09/2022 PTH, INTAC T AND CALCI UM calcium 9.3 mg/dL 8.6-10 .4 normal Not Available [address], [address], 02/09/2022 19:07:31 03/08/20 23 03/09/2023 COMPR EHENS PILY METAB OLIC PANEL glucose 113 mg/dL 65-139 normal Non-f astin g refer ence inter nilam Not Available [address], [address], 03/09/2023 16:31:54 03/08/20 23 03/09/2023 COMPR EHENS PILY METAB OLIC PANEL urea nitrogen (BUN) 20 mg/dL 7-25 normal Not Available [address], [address], 03/09/2023 16:31:54 03/08/20 23 03/09/2023 COMPR EHENS PILY METAB OLIC PANEL creatinine 0.62 mg/dL 0.50-1 .05 normal Not Available [address], [address], 03/09/2023 16:31:54 03/08/20 23 03/09/2023 COMPR EHENS PILY METAB OLIC PANEL eGFR 101 mL/mi n/1.7 3m2 > or = 60 normal The eGFR is based on the CKD-E PI 2020 equat ion. To calcu late the new eGFR from a previ ous Creat inine or Cysta tin C resul t, go to https ://juanito cameron/yessica nelson s/ kdoqi /gfr% 5Fcal culat or Not Available [address] [address] [place], [address], 03/09/2023 16:31:54 03/08/20 23 03/09/2023 COMPR EHENS PILY METAB OLIC PANEL BUN/creatini ne ratio NOT APPLIC ABLE (calc ) 6-22 Not Available [address], [address], 03/09/2023 16:31:54 03/08/20 23 03/09/2023 COMPR EHENS PILY METAB OLIC PANEL sodium 138 mmol/ L 135-14 6 normal Not Available [address], [address], 03/09/2023 16:31:54 03/08/20 23 03/09/2023 COMPR EHENS PILY METAB OLIC PANEL potassium 3.4 mmol/ L 3.5-5. 3 low Not Available [address], [address], 03/09/2023 16:31:54 03/08/20 23 03/09/2023 COMPR EHENS PILY METAB OLIC PANEL chloride 106 mmol/ L 98-110 normal Not Available [address], [address], 03/09/2023 16:31:54 03/08/20 23 03/09/2023 COMPR EHENS PILY METAB OLIC PANEL carbon dioxide 25 mmol/ L 20-32 normal Not Available [address], [address], 03/09/2023 16:31:54 03/08/20 23 03/09/2023 COMPR EHENS PILY METAB OLIC PANEL calcium 9.2 mg/dL 8.6-10 .4 normal Not Available [address], [address], 03/09/2023 16:31:54 03/08/20 23 03/09/2023 COMPR EHENS PILY METAB OLIC PANEL protein, total 6.5 g/dL 6.1-8. 1 normal Not Available [address], [address], 03/09/2023 16:31:54 03/08/20 23 03/09/2023 COMPR EHENS PILY METAB OLIC PANEL albumin 4.5 g/dL 3.6-5. 1 normal Not Available [address], [address], 03/09/2023 16:31:54 03/08/20 23 03/09/2023 COMPR EHENS PILY METAB OLIC PANEL globulin 2.0 g/dL_ (calc ) 1.9-3. 7 normal Not Available [address], [address], 03/09/2023 16:31:54 03/08/20 23 03/09/2023 COMPR EHENS PILY METAB OLIC PANEL albumin/glob ulin ratio 2.3 (calc ) 1.0-2. 5 normal Not Available [address], [address], 03/09/2023 16:31:54 03/08/20 23 03/09/2023 COMPR EHENS PILY METAB OLIC PANEL bilirubin, total 0.5 mg/dL 0.2-1. 2 normal Not Available [address], [address], 03/09/2023 16:31:54 03/08/20 23 03/09/2023 COMPR EHENS PILY METAB OLIC PANEL alkaline phosphatase 150 U/L 37-153 normal Not Available [address] [address] [place], [address], 03/09/2023 16:31:54 03/08/20 23 03/09/2023 COMPR EHENS PILY METAB OLIC PANEL AST 14 U/L 10-35 normal Not Available [address] [address] [place], [address], 03/09/2023 16:31:54 03/08/20 23 03/09/2023 COMPR EHENS PILY METAB OLIC PANEL ALT 21 U/L 6-29 normal Not Available [address], [address], 03/09/2023 16:31:54 03/08/20 23 03/09/2023 COMPR EHENS PILY METAB OLIC PANEL copy(ies) sent to: [facility] [address] [facility] [place] [address] Not Available [address] [address] [place], [address], 03/09/2023 16:31:54 03/08/20 23 03/09/2023 ALBUM IN, RANDO M URINE W/CRE ATINI NE creatinine, random urine 45 mg/dL 20-275 normal Not Available [address] [address] [place], [address], 03/09/2023 16:31:54 03/08/20 23 03/09/2023 ALBUM IN, RANDO M URINE W/CRE ATINI NE albumin, urine 18.3 mg/dL see note: normal Refer ence Range : Refer ence Range Not estab lishe d Not Available [address] [address] [place], [address], 03/09/2023 16:31:54 03/08/20 23 03/09/2023 ALBUM IN, RANDO M URINE W/CRE ATINI NE albumin/crea tinine ratio, random urine 407 mcg/m g_cre at <30 high The ADA defin es abnor malit ies in album in excre tion as follo ws: Album inuri a Categ ory Resul t (mcg/ mg creat inine ) Patti l to Mildl y incre ased <30 Moder ately incre ased 30-29 9 Sever dusty incre ased > OR = 300 The ADA recom mends that at least two of three speci mens colle cted withi n a 3-6 month perio d be abnor mal befor e consi gosia g a patie nt to be withi n a diagn ostic categ ory. Not Available [facility] [address] [place], [address], 03/09/2023 16:31:54 03/08/20 23 03/09/2023 ALBUM IN, RANDO M URINE W/CRE ATINI NE copy(ies) sent to: [facility] ADMN [address] [place] [address] Not Available [address], [address], 03/09/2023 16:31:54 03/08/20 23 03/09/2023 TSH+F REE T4 TSH 1.29 mIU/L 0.40-4 .50 normal Not Available [facility] [address] [place], [address], 03/09/2023 16:31:54 03/08/20 23 03/09/2023 TSH+F REE T4 T4, free 1.1 NG/dL 0.8-1. 8 normal Not Available [facility] [address], [address], 03/09/2023 16:31:54 03/08/20 23 03/09/2023 TSH+F REE T4 copy(ies) sent to: PRACHI LUTHER [facility] RE[facility] ADMN [address] [place] [address] Not Available [facility] [address] [place], [address], 03/09/2023 16:31:54 03/08/20 23 03/09/2023 HEMOG LOBIN A1C hemoglobin A1C 6.7 %_of_ total _HGB <5.7 high For someo ne witho ut known diabe quintin, a hemog lobin A1c value of 6.5% or great er indic ates that they may have diabe quintin and this shoul d be confi rmed with a follo w-up test. For someo ne with known diabe quintin, a value <7% indic ates that their diabe quintin is well contr olled and a value great er than or equal to 7% indic ates subop timal contr ol. A1c targe ts shoul d be indiv idual ized based on durat ion of diabe quintin, age, comor bid condi tions , and other consi derat ions. Curre ntly, no conse nsus exist s jazlyn hayes use of hemog lobin A1c for diagn osis of diabe quintin for child eileen. Not Available [facility] [address] [place], [address], 03/09/2023 16:31:55 03/08/20 23 03/09/2023 HEMOG LOBIN A1C copy(ies) sent to: MARTY HOMA [facility] [address] [place] [address] Not Available [facility] [address] [address] [place], [address], 03/09/2023 16:31:55 03/28/2005/02/2023 RHEUM ATOID ARTHR ITIS DIAGN OSTIC IDENT RA(R) PANEL 2 rheumatoid factor <14 IU/mL <14 Not Available [facility] [address] [place], [address], 05/02/2023 09:27:07 03/28/20 23 05/02/2023 RHEUM ATOID ARTHR ITIS DIAGN OSTIC IDENT RA(R) PANEL 2 cyclic citrullinate d peptide (ccp) Ab (IgG) <16 units Refer ence Range : NEGAT PILY: <20 WEAK POSIT PILY: 20-39 MODER ATE POSIT PILY: 40-59 STRON G POSIT PILY >59 Not Available [facility] [address] [place], [address], 05/02/2023 09:27:07 03/28/20 23 05/02/2023 RHEUM ATOID ARTHR ITIS DIAGN OSTIC IDENT RA(R) PANEL 2 14.3.3 ETA protein <0.2 NG/mL <0.2 The 14-3- 3eta prote in is a marke r of synov ial infla mmati on that is relea sed into synov ial fluid and perip heral blood in rheum atoid arthr itis (RA) and erosi ve psori atic arthr itis. One in five RF and CCP seron egati ve early stage RA patie nts is found to be posit pily for 14-3- 3eta prote in. Patie nts with activ e joint RA disea se have highe r value s of 14-3- 3eta prote in than those with inact pily RA or psori asis witho ut arthr itis. 14-3- 3eta prote in has a 93% speci ficit y in patie nts with RA. Value s > or = 0.2 ng/mL are eleva dorothea and indic ative of RA disea se or erosi ve psori atic arthr itis. Value s >0.50 ng/mL are assoc iated with more aggre ssive RA disea se and davey r outco mes. Unlik e RF and CCP, 14-3- 3eta prote in is a thera peuti bernadette modif iable marke r to monit or respo nse to thera py. A decre ase in 14-3- 3eta prote in in respo nse to DMARD s (dise ase-m odify ing antir heuma tic drugs ) and anti- TNF (tumo r necro sis facto r) drugs indic ates shannan r clini arik outco mes; an incre ase is assoc iated with worse outco mes despi te appar ent clini arik remis bebe. For niki reevesr jose bowling e visit : http: //www .ques tdiag clifford cs.co m/quintin tcent er/te stgui de.ac tion? dc=TS -RmAr thPnl This test was devel oped and its ree tical perfo rmanc e steffen cteri stics have been deter mined by [facility] tran . It has not been clear ed or appro erasmo by FDA. This assay has been valid ated pursu ant to the CLIA regul ation s and is used for clini arik purpo ses. This test was devel oped and its ree tical perfo rmanc e steffen cteri stics have been deter mined by [facility]. It has not been clear ed or appro erasmo by the FDA. This assay has been valid ated pursu ant to the CLIA regul ation s and is used for clini arik purpo ses. Not Available [facility] [address], [address], 05/02/2023 09:27:07 03/28/20 23 05/02/2023 SED RATE BY MODIF IED WESTE RGREN sed rate by modified westergren 2 mm/h < or = 30 normal Not Available [facility] [address], [address], 05/02/2023 09:27:08 03/28/20 23 05/02/2023 C-ABIGAIL CTIVE PROTE IN C-reactive protein 0.9 mg/L <8.0 normal Not Available [facility] [address], [address], 05/02/2023 09:27:09 03/28/20 23 05/02/2023 AMRIT SCR, IFA W/REF L TITER /EDMUND SALLY/L UPUS PNL 2 AMRIT screen, ifa NEGATI VE negati ve normal AMRIT IFA is a first line scree n for detec ting the prese nce of up to appro ximat dusty 150 autoa ntibo dies in vario us autoi mmune disea ses. A negat pily AMRIT IFA resul t sugge sts an AMRIT-a ssoci ated autoi mmune disea se is not prese nt at this time, but is not defin itive . If there is high clini arik suspi cion for Sjogr en's syndr ome, testi ng for anti- SS-A/ Ro antib saurabh shoul d be consi dered . Anti- Maribell-1 antib saurabh shoul d be consi dered for clini bernadette suspe cted infla mmato ry myopa shadi . AC-0: Negat pily Inter natio nal Conse nsus on AMRIT Patte rns (http s://d oi.or g/10. 8825/ [facility]2017- [address]52) For addit ional infor dash de la cruz e refer to http: //[facility] luana benjamin.Que stDia gnost ics.c om/fa q/FAQ 177 (This link is being provi ded for infor matio nal/ educa trinity l purpo ses only. ) Not Available [address] [address] [place], [address], 05/02/2023 09:27:10 03/28/20 23 05/02/2023 AMRIT SCR, IFA W/REF L TITER /EDMUND SALLY/L UPUS PNL 2 DNA (ds) antibody <1 IU/mL normal IU/mL Inter preta tion < or = 4 Negat pily 5-9 Indet ermin ate > or = 10 Posit pily Not Available [address], [address], 05/02/2023 09:27:10 03/28/2005/02/2023 AMRIT SCR, IFA W/REF L TITER /EDMUND SALLY/L UPUS PNL 2 scl-70 antibody <1.0 NEG ai <1.0 neg normal Not Available [address] [place], [address], 05/02/2023 09:27:10 03/28/2005/02/2023 AMRIT SCR, IFA W/REF L TITER /EDMUND SALLY/L UPUS PNL 2 sm antibody <1.0 NEG ai <1.0 neg normal Not Available [address], [address], 05/02/2023 09:27:10 03/28/20 23 05/02/2023 AMRIT SCR, IFA W/REF L TITER /EDMUND SALLY/L UPUS PNL 2 sm/it applications analyst antibody <1.0 NEG ai <1.0 neg normal Not Available [address], [address], 05/02/2023 09:27:10 03/28/20 23 05/02/2023 AMRIT SCR, IFA W/REF L TITER /EDMUND SALLY/L UPUS PNL 2 sjogren's antibody (ss-A) <1.0 NEG ai <1.0 neg normal Not Available [address], [address], 05/02/2023 09:27:10 03/28/20 23 05/02/2023 AMRIT SCR, IFA W/REF L TITER /EDMUND SALLY/L UPUS PNL 2 sjogren's antibody (ss-B) <1.0 NEG ai <1.0 neg normal Not Available [address], [address], 05/02/2023 09:27:10 03/28/20 23 05/02/2023 THYRO ID PEROX IDASE ANTIB ODIES thyroid peroxidase antibodies <1 IU/mL <9 Not Available [address], [address], 05/02/2023 09:27:11 03/28/20 23 05/02/2023 T3, FREE T3, free 3.0 pg/mL 2.3-4. 2 normal Not Available [address], [address], 05/02/2023 09:27:11 04/11/20 23 04/13/2023 PROTE IN, TOTAL W/CRE AT, 24 HOUR URINE creatinine, 24 hour urine 0.87 g/24_ h 0.50-2 .15 normal Not Available [address], [address], 04/13/2023 05:18:55 04/11/20 23 04/13/2023 PROTE IN, TOTAL W/CRE AT, 24 HOUR URINE protein/crea tinine ratio 2333 mg/g_ creat <150 high Not Available [address], [address], 04/13/2023 05:18:55 04/11/20 23 04/13/2023 PROTE IN, TOTAL W/CRE AT, 24 HOUR URINE protein/crea tinine ratio 2.333 mg/mg _crea t <0.150 high Not Available [address], [address], 04/13/2023 05:18:55 04/11/20 23 04/13/2023 PROTE IN, TOTAL W/CRE AT, 24 HOUR URINE protein, total, 24 HR ur 2030 mg/24 _h <150 high URINE VOLUM E: 2900/ 24 Not Available [address], [address], 04/13/2023 05:18:55 11/15/19 22 11/10/2021 US, thyro id No observ ation record ed. [id number] [facility] [address], [place], [address], 11/30/2022 06:08:11 03/01/20 22 03/01/2022 US, head + neck, soft tissu e [facility] [address], [place] [address] [place], [place] [id number] Name: WILTON PA A Access ion #: [id number] Sex: F : 1959 9 Locati on: RAD Attend ing Physic ana: MALIA ROBLERO Orderi ng Physic ana: MALIA ROBLERO Exam Date: 12:28 PM Exam Name: US NECK HEAD SOFT TISSUE Admitt ing Diagno sis(es ): RADIOL OGY REPORT - FINAL EXAM: US NECK HEAD SOFT TISSUE HISTOR Y: goiter COMPAR APOLINAR: None. TECHNI QUE: Ultras ound evalua tion of the thyroi d gland was perfor med. FINDIN GS: Right thyroi d lobe: The right lobe of the thyroi d gland measur es 4.1 x 2.2 x 1.5 cm. The thyroi d parenc hyma is inhomo genous . There is a 0.9 x 0.6 x 0.83 cm right mid thyroi d nodule with a centra l macroc alcifi cation . There is also a 0.55 x 0.36 x 0.33 cm mixed echoge roseline struct ure with 2 periph eral puncta te calcif icatio ns. No abnorm al color Dopple r blood flow or suspic ious calcif icatio ns. Page 1 of 2 [facility] Name: WILTON PA A Access ion #: [id number] Sex: F : 1959 8 Exam Date: 12:28 PM Exam Name: US NECK HEAD SOFT TISSUE Admitt ing Diagno sis(es ): Left thyroi d lobe: The left lobe of the thyroi d gland measur es 4.7 x 1.5 x 1.4 cm demons tratin g a 0.8 x 0.64 x 0.72 cm solid nodule , circum scribe d with a centra l macroc alcifi cation . There is a solid 0.7 x 0.6 x 0.45 cm nodule with microc alcifi cation s periph erally . The thyroi d parenc hyma is hetero geneou s. No abnorm al color Dopple r blood flow or suspic ious calcif icatio ns. Isthmu s: The thyroi d isthmu s measur es 0.29 mm in width. The thyroi d parenc hyma is hetero geneou s withou t solid nodule s or cystic lesion s. No abnorm al color Dopple r blood flow or suspic ious calcif icatio ns. IMPRES BEBE: Ti-Rad s 4: Modera tely suspic ious, biopsy is reserv ed for nodule s in this catego ry greate r than 1.5 cm, recomm end annual survei llance . Create d and electr onical ly signed by: Jus da silva MD Signed Date: 2:34 PM (CT) Dictat ed by: Jus da silva MD DD: 2:34 PM (CT) DT: 2:34 PM (CT) Page 2 of 2 [id number] [facility] ([facility]) [address] [place], [address], 11/30/2022 06:08:11 03/01/20 22 03/01/2022 US, thyro id No observ ation record ed. [id number] [facility] Add On [facility] Orders [address] [place], [address], 11/30/2022 06:08:11 11/10/19 23 11/09/2022 US, duple x, carot id arter y No observ ation record ed. [id number] [facility] [address], [place], [address], 11/30/2022 06:08:11 03/23/20 23 03/23/2023 US, head + neck, soft tissu e [facility] [address] [place] [address] [phone] Patien t Name: WILTON PA Mathew Coello Access ion #: [id number] Sex: F : 1959 7 Locati on: RAD Attend ing Physic ana: BRI ROBLERON Orderi ng Physic ana: BRI ROBLERON Exam Date: 023 10:18 AM Exam Name: US NECK HEAD SOFT TISSUE Admitt ing Diagno sis(es ): RADIOL OGY REPORT - FINAL EXAM: US NECK HEAD SOFT TISSUE HISTOR Y: goiter COMPAR APOLINAR: 2021 TECHNI QUE: Ultras ound evalua tion of the thyroi d gland was perfor med. FINDIN GS: Right thyroi d lobe: The right lobe of the thyroi d gland measur es 5 x 1.7 x 2.1 cm. The thyroi d parenc hyma is inhomo geneou s demons tratin g a 0.94 right mid hypoec hoic nodule with calcif icatio ns, allowi ng for techni que, stable . There is also a 0.54 cm inferi or hypoec hoic nodule , stable . Or cystic lesion s. No abnorm al color Dopple r blood flow. Page 1 of 2 [facility] Name: WILTON PA Access ion #: [id number] Sex: F : 1959 7 Exam Date: 023 10:18 AM Exam Name: US NECK HEAD SOFT TISSUE Admitt ing Diagno sis(es ): Left thyroi d lobe: The left lobe of the thyroi d gland measur es 4.7 x 1.5 x 1.9 cm. The thyroi d parenc hyma is hetero geneou s demons tratin g a 0.9 x 0.6 x 0.83 cm hypoec hoic nodule with calcif icatio n slight ly increa sed in size previo usly measur ing 0.88 cm, this is superi maxim. Also superi maxim is a 0.81 x 0.75 cm solid hypoec hoic nodule s with calcif icatio n slight ly increa sed in size. No abnorm al color Dopple r blood flow or suspic ious calcif icatio ns. Isthmu s: The thyroi d isthmu s measur es 0.3 mm in width. The thyroi d parenc hyma is homoge neous withou t solid nodule s or cystic lesion s. No abnorm al color Dopple r blood flow or suspic ious calcif icatio ns. IMPRES BEBE: Ti-Rad s 4: Modera tely suspic ious recomm end annual survei llance . Create d and electr onical ly signed by: Jus da silva MD Signed Date: 4:24 PM (CT) Dictat ed by: Jus da silva MD DD: 4:24 PM (CT) DT: 4:24 PM (CT) Page [address] of [address] (Imaging) [address] [place], [address], 03/26/2023 20:45:15 03/23/20 23 03/23/2023 US, head + neck No observ ation record ed. [address] [place], [address], 03/26/2023 20:45:16 07/18/20 23 07/17/2023 elect valery og am, routi ne ECG, 12 leads min No observ ation record ed. [address] [facility] [address], [place], [address], 07/20/2023 17:07:17 Result Notes None recorded. Problems Name Problem SNOMED Code Status Onset Date Resolution Date Notes Provider Name and Address Organization Details Recorded Time Chronic obstructi ve pulmonary disease 46771289 Active Not Available [facility] 3 06:00:18 Acute sinusitis 51636572 Active Not Available [facility] 3 06:00:18 Toxic effect of tobacco and nicotine 953093941 Active Not Available [facility] 3 06:00:18 Current tear of medial cartilage AND/OR meniscus of knee Active Not Available [facility] 3 06:00:18 Vitamin D deficienc y 97366821 Active Not Available [facility] 3 06:00:19 Ingrowing toenail 590986687 Active bilateral Not Available [facility] 3 06:00:19 Cough 43531875 Active Not Available [facility] 3 06:00:19 Wheezing 00778846 Active Not Available [facility] 3 06:00:19 Derangeme nt of knee 82233647 Active Not Available [facility] 3 06:00:19 Pain in limb 09785725 Active Not Available [facility] 3 06:00:19 Primary malignant neoplasm of female breast 69817989 Active Not Available [facility] 3 06:00:19 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 01307923845 07 Active 2021 Not Available [facility] 3 06:00:18 Periphera l neuropath y due to and following antineopl astic therapy 072704819 Active 2021 Not Available [facility] 3 06:00:19 Multinodu lar goiter 396972855 Active 2021 Not Available [facility] 3 06:00:18 Diabetic periphera l neuropath y 010429158 Active 2021 Not Available [facility] 3 06:00:19 Uncontrol led type 2 diabetes mellitus 631055929 Active 2021 Not Available [facility] 3 06:00:19 Well controlle d type 2 diabetes mellitus 910986712 Active 2022 Malia Roblero MD [address], [place], [address] , [facility] [employer] [facility] 3 14:35:20 Arthritis 9730954 Active 2022 Malia Roblero MD [address], [place], [address] , [facility] [employer] [facility] 3 14:35:35 Proteinur ia 85508671 Active 2022 MD [address], [place], [address] , [facility] [employer] [facility] 3 14:36:07 Thyroid nodule 199221758 Active 2022 Malia Roblero MD [address], [facility] [address], [place], [address] , [facility] [employer] [facility] 3 14:38:29 Notes:Some problems listed i n Documents: #[id number], #[id number] could not be added to this patient's chart. Please review these documents and add these problems to the patient's chart manually as needed. Problem Notes None recorded. Procedures Surgical History Date Name Laterality Status Provider Name and Address Organization Details Recorded Time 05/25/20 21 Most Recent Bone Density completed Not Available [facility] 11/30/2022 05:55:05 08/06/20 20 Most Recent Mammogram completed Not Available [facility] 11/30/2022 05:55:05 07/02/20 19 procedure on urinary bladder completed Not Available [facility] 11/30/2022 05:55:07 03/25/20 19 Date of Last Pap Smear completed Not Available [facility] 11/30/2022 05:55:05 10/02/18 89 Masectomy completed Not Available [facility] 3 05:55:07 Tonsillectomy completed Not Available [facility] 11/30/2022 05:55:07 Hysterectomy completed Not Available [facility] 11/30/2022 05:55:07 Breast Implants completed Not Available [facility] 11/30/2022 05:55:07 Sinus Surgery completed Not Available [facility] 11/30/2022 05:55:07 Imaging Results None recorded. Procedure Notes None recorded. Medical Equipment None Reported. Allergies Allergen ID Allergen Name Allergen Category Reaction Reaction Severity Criticality Documentation Date Start Date Code Code System Note Provider Name and Address Organization Details Recorded Time 49332 oxaliplat in medicatio n lighthead edness Not available Not available 11/30/2022 23398 RxNorm Decre ased oxyge n level s Not Available [facility] 3 06:07:53 Medications Name Sig Start Date Stop Date Status Note LastModified by Organization Details LastModified Time multivitami n tablet daily 2012 active Not Available Not Available Not Avai lable celecoxib 200 mg capsule 01/23 completed Not Available Not Available Not Available fluoxetine 40 mg capsule daily 11/21 completed Not Available Not Available Not Available cyclobenzap rine 10 mg tablet 01/23 completed Not Available Not Available Not Available amoxicillin 500 mg capsule TAKE 1 CAPSULE BY MOUTH EVERY 8 HOURS 03/14 completed Not Available Not Available Not Available fluconazole 100 mg tablet 03/25 completed Not Available Not Available Not Available methocarbam ol 500 mg tablet TK 2 TS PO QID PRN 05/17 completed Not Available Not Available Not Available metformin 500 mg tablet 01/23 completed Not Available Not Available Not Available prednisone 10 mg tablet TAKE 3 TABLETS BY MOUTH DAILY 03/14 completed Not Available Not Available Not Available doxycycline hyclate 100 mg capsule active Not Available Not Available N ot Available cefuroxime axetil 250 mg tablet active Not Available Not Available No t Available Zyrtec-D 5 mg-120 mg tablet,exte nded release TAKE 1 TABLET BY MOUTH EVERY 12 HOURS active Not Available Not Available No t Available trazodone 50 mg tablet TK 2 TS PO QHS 11/21 completed Not Available Not Available Not Available amitriptyli ne 150 mg tablet TK 1 T PO QD AT DINNER 11/21 completed Not Available Not Available Not Available azithromyci n 250 mg tablet TAKE 2 TABLETS BY MOUTH FOR 1 DAY THEN TAKE 1 TABLET BY MOUTH DAILY FOR 4 DAYS active Not Available Not Available No t Available ofloxacin 0.3 % eye drops 03/14 completed Not Available Not Available Not Available fluconazole 150 mg tablet TAKE 1 TABLET BY MOUTH NOW. MAY REPEAT WITH 2ND TABLET IN 48 HOURS IF SYMPTOMS DON'T IMPROVE 03/25 completed Not Available Not Available Not Available amiodarone 200 mg tablet 05/17 completed Not Available Not Available Not Available metoprolol succinate ER 50 mg tablet,exte nded release 24 hr TK 1 T PO D 03/25 completed Not Available Not Available Not Available ampicillin 500 mg capsule 05/17 completed Not Available Not Available Not Available hydrocodone 5 mg-acetamin ophen 325 mg tablet 03/25 completed Not Available Not Available Not Available ondansetron HCl 8 mg tablet 03/25 completed Not Available Not Available Not Available ondansetron HCl 4 mg tablet TAKE 1 TABLET BY MOUTH EVERY 8 HOURS 03/14 completed Not Available Not Available Not Available prednisone 20 mg tablet TAKE 2 TABLETS BY MOUTH ONCE DAILY FOR 5 DAYS 03/14 completed Not Available Not Available Not Available isosorbide mononitrate ER 30 mg tablet,exte nded release 24 hr TK 1 T PO D 05/17 completed Not Available Not Available Not Available Accu-Chek Softclix Lancets USE TWICE DAILY DIRECTED active Not Available Not Available No t Available acetaminoph en 300 mg-codeine 30 mg tablet TK 1 T PO Q 6 H PRN 03/25 completed Not Available Not Available Not Available ciprofloxac in 250 mg tablet TAKE 1 TABLET BY MOUTH EVERY 12 HOURS FOR 5 DAYS 03/14 completed Not Available Not Available Not Available prochlorper azine maleate 10 mg tablet 05/17 completed Not Available Not Available Not Available ciprofloxac in 500 mg tablet 11/21 completed Not Available Not Available Not Available sulfamethox azole 800 mg-trimetho prim 160 mg tablet TAKE 1 TABLET BY MOUTH EVERY 12 HOURS FOR 3 DAYS 03/25 completed Not Available Not Available Not Available hydrocodone 10 mg-acetamin ophen 325 mg tablet 05/17 completed Not Available Not Available Not Available peg-electro lyte solution 420 gram oral solution MIX AND DRINK UTD 03/25 completed Not Available Not Available Not Available tramadol 50 mg tablet TAKE 1 TABLET BY MOUTH EVERY 6 HOURS NEEDED 05/17 completed Not Available Not Available Not Available amitriptyli ne 50 mg tablet Take 1 tablet every day by oral route at bedtime. 2013 active Not Available Not Available Not Avai lable spironolact one 25 mg tablet 05/17 completed Not Available Not Available Not Available bupropion HCl SR 100 mg tablet,12 hr sustained-r elease TAKE 1 TABLET BY MOUTH EVERY DAY IN THE MORNING active Not Available Not Available No t Available lidocaine-p rilocaine 2.5 %-2.5 % topical cream THEODORA TOPICALLY PRF PAIN UTD 03/25 completed Not Available Not Available Not Available glimepiride 1 mg tablet TAKE 1 TABLET BY MOUTH EVERY MORNING WITH BREAKFAST active Not Available Not Available No t Available ketorolac 10 mg tablet 03/25 completed Not Available Not Available Not Available ketorolac 0.5 % eye drops 03/14 completed Not Available Not Available Not Available meloxicam 7.5 mg tablet TK 1 T PO D WITH FOOD 03/25 completed Not Available Not Available Not Available oxycodone-a cetaminophe n 5 mg-325 mg tablet 03/25 completed Not Available Not Available Not Available amoxicillin 875 mg tablet TAKE 1 TABLET BY MOUTH TWICE A DAY 03/14 completed Not Available Not Available Not Available alprazolam 0.25 mg tablet active Not Available Not Available Not Available amitriptyli ne 25 mg tablet TAKE 1 TABLET BY MOUTH EVERY DAY active Not Available Not Available No t Available prednisolon e acetate 1 % eye drops,suspe nsion 03/14 completed Not Available Not Available Not Available benzonatate 100 mg capsule TAKE 1 CAPSULE BY MOUTH THREE TIMES DAILY NEEDED FOR COUGH active Not Available Not Available No t Available hydrocodone 7.5 mg-acetamin ophen 325 mg tablet active Not Available Not Available No t Available oseltamivir 75 mg capsule 01/23 completed Not Available Not Available Not Available fluoxetine 20 mg tablet active Not Available Not Available Not Available metformin 1,000 mg tablet 11/21 completed Not Available Not Available Not Available Proctofoam HC 1 %-1 % THEODORA TOPICALLY AA TID active Not Available Not Available No t Available triamcinolo ne acetonide 0.1 % topical ointment APPLY A THIN LAYER TO THE AFFECTED AREA TWICE DAILY NEEDED FOR ITCHING OR ONCE WEEKLY active Not Available Not Available No t Available buspirone 10 mg tablet TK 1 T PO BID WITH MEALS 01/23 completed Not Available Not Available Not Available prednisone 50 mg tablet 03/14 completed Not Available Not Available Not Available losartan 25 mg tablet TAKE 1 TABLET BY MOUTH EVERY MORNING active Not Available Not Available No t Available fluoxetine 10 mg capsule active Not Available Not Available Not Available gabapentin 300 mg capsule TK 1 C PO TID active Not Available Not Available No t Available aspirin 81 mg chewable tablet Chew 1 tablet every day by oral route. 03/25 completed Not Available Not Available Not Available montelukast 10 mg tablet TK 1 T PO QPM 11/21 completed Not Available Not Available Not Available mupirocin 2 % topical ointment APPLY TOPICALLY TO THE AFFECTED AREA TWICE DAILY active Not Available Not Available No t Available mirtazapine 15 mg tablet 03/25 completed Not Available Not Available Not Available metoprolol succinate ER 25 mg tablet,exte nded release 24 hr TK 1 T PO D 01/23 completed Not Available Not Available Not Available ergocalcife rol (vitamin D2) 1,250 mcg (50,000 unit) capsule TK ONE C PO Q WEEK 03/25 completed Not Available Not Available Not Available diazepam 10 mg tablet active Not Available Not Available No t Available ibuprofen 600 mg tablet TAKE 1 TABLET BY MOUTH DAILY NEEDED FOR PAIN active Not Available Not Available No t Available cefuroxime axetil 500 mg tablet TK 1 T PO Q 12 H 03/25 completed Not Available Not Available Not Available levofloxaci n 500 mg tablet TK 1 T PO Q 24 H 05/17 completed Not Available Not Available Not Available methylpredn isolone 4 mg tablets in a dose pack FOLLOW PACKAGE DIRECTION S 03/14 completed Not Available Not Available Not Available albuterol sulfate HFA 90 mcg/actuati on aerosol inhaler INHALE 2 PUFFS BY MOUTH EVERY 4 HOURS NEEDED FOR SHORTNESS OF BREATH OR WHEEZING active Not Available Not Available No t Available diltiazem 30 mg tablet TAKE 1 TABLET BY MOUTH THREE TIMES DAILY active Not Available Not Available No t Available cefdinir 300 mg capsule TAKE ONE CAPSULE BY MOUTH TWICE DAILY FOR 7 DAYS active Not Available Not Available No t Available fluoxetine 20 mg capsule daily 11/21 completed Not Available Not Available Not Available fluticasone propionate 50 mcg/actuati on nasal spray,suspe nsion SHAKE LIQUID AND USE 1 SPRAY IN EACH NOSTRIL TWICE DAILY active Not Available Not Available No t Available metformin ER 500 mg tablet,exte nded release 24 hr TAKE 2 TABLETS BY MOUTH DAILY WITH SYNJARDY 05/17 completed Not Available Not Available Not Available amitriptyli ne 100 mg tablet TAKE 1 TABLET BY MOUTH EVERY DAY AT BEDTIME active Not Available Not Available No t Available doxycycline hyclate 100 mg tablet TAKE 1 TABLET BY MOUTH TWICE DAILY 03/14 completed Not Available Not Available Not Available naproxen 500 mg tablet TAKE 1 TABLET BY MOUTH TWICE DAILY WITH FOOD 05/17 completed Not Available Not Available Not Available amoxicillin 875 mg-potassiu m clavulanate 125 mg tablet TAKE 1 TABLET BY MOUTH TWICE DAILY 03/14 completed Not Available Not Available Not Available Almacone 200 mg-200 mg-20 mg/5 mL oral suspension active Not Available Not Available N ot Available azithromyci n 500 mg tablet TAKE 1 TABLET BY MOUTH DAILY FOR 5 DAYS 03/14 completed Not Available Not Available Not Available Vitamin D3 25 mcg (1,000 unit) tablet Take 1 tablet every day by oral route. 11/21 completed Not Available Not Available Not Available ciprofloxac in 0.3 %-dexametha sone 0.1 % ear drops,suspe nsion PLACE 4 DROPS IN THE LEFT EAR TWICE DAILY. ALLOW TO SIT IN EAR AT LEAST 2 TO 5 MINUTES. 03/14 completed Not Available Not Available Not Available rosuvastati n 40 mg tablet TAKE 1 TABLET BY MOUTH DAILY active Not Available Not Available No t Available Spiriva with HandiHaler 18 mcg and inhalation capsules Inhale 1 capsule every day by inhalatio n route for 30 days. 11/21 completed Not Available Not Available Not Available nitrofurant oin monohydrate /macrocryst als 100 mg capsule TAKE 1 CAPSULE BY MOUTH EVERY 12 HOURS FOR 7 DAYS 03/14 completed Not Available Not Available Not Available chlorhexidi ne gluconate 0.12 % mouthwash PLACE 15 MLS IN MOUTH AND SWISH IN MOUTH FOR 30 SECONDS THEN SPIT OUT. USE TWICE DAILY AFTER A MEAL. 03/14 completed Not Available Not Available Not Available ibuprofen as needed 2012 active Not Available Not Available Not Avai lable amitriptyli ne 150mg at bedtime 2012 active Not Available Not Available Not Avai lable gabapentin twice daily 2012 active Not Available Not Available Not Avai lable Crestor 05/17 completed Not Available Not Available Not Available vitamin B comp and C no.3 daily 2012 active Not Available Not Available Not Avai lable Pataday 0.2 % eye drops active Not Available Not Available Not Available Symbicort 160 mcg-4.5 mcg/actuati on HFA aerosol inhaler active Not Available Not Available Not Available sodium,pota ssium,mag sulfates 17.5 gram-3.13 gram-1.6 gram oral soln active Not Available Not Available Not Available Vitamin D3 50 mcg (2,000 unit) capsule TK 1 C PO QD active Not Available Not Available No t Available Accu-Chek Angelic Plus test strips TEST TWICE DAILY DIRECTED active Not Available Not Available No t Available Chantix Continuing Month Box 1 mg tablet 11/21 completed Not Available Not Available Not Available Chantix Starting Month Box 0.5 mg (11)-1 mg (42) tablets in dose pack 11/21 completed Not Available Not Available Not Available Accu-Chek Angelic Plus Meter active Not Available Not Available Not Available Eliquis 5 mg tablet 05/17 completed Not Available Not Available Not Available Synjardy XR 10 mg-1,000 mg tablet, extended release TK 1 T PO QD WITH MORNING MEAL 05/17 completed Not Available Not Available Not Available Synjardy XR 12.5 mg-1,000 mg tablet, extended release TAKE 2 TABLETS BY MOUTH DAILY active Not Available Not Available No t Available Synjardy XR 25 mg-1,000 mg tablet, extended release TAKE 1 TABLET BY MOUTH DAILY 03/14 completed Not Available Not Available Not Available Bydureon BCise 2 mg/0.85 mL subcutaneou s auto-inject or INJECT 2MG SUBCUTANE OUS EVERY WEEK active Not Available Not Available No t Available Breztri Aerosphere 160 mcg-9mcg-4. 8mcg/actuat ion HFA aerosol inhaler INHALE 2 PUFFS BY MOUTH TWICE DAILY active Not Available Not Available No t Available Vitals Date Recorded Body mass index (BMI) Body height Oxygen saturation Oxygen saturation in Arterial blood by Pulse oximetry Heart rate Body temperature Body weight Systolic And Diastolic Provider Name and Address Organization Details Last Updated DateTime 2 22.7 kg/m2 162.56 cm 98 % 98 % 98 /min 97.7 [degF] 18539.1 9 g 110/75 mm[Hg] Not Available [facility] 3 05:57:19 Date Recorded Body mass index (BMI) Body height Body weight Provider Name and Address Organization Details Last Updated DateTime 12/23/2021 22.7 kg/m2 162.56 cm 29525.19 g Not Available [facility] 11/30/2022 05:57:20 Date Recorded Body height Body mass index (BMI) Body weight Respiratory rate Heart rate Systolic And Diastolic Provider Name and Address Organization Details Last Updated DateTime 3 162.56 cm 23 kg/m2 73470.6 6 g 18 /min 102 /min 103/67 mm[Hg] ERNESTINE Day [facility] 3 14:25:47 Date Recorded Body mass index (BMI) Body height Oxygen saturation Oxygen saturation in Arterial blood by Pulse oximetry Heart rate Body temperature Body weight Systolic And Diastolic Provider Name and Address Organization Details Last Updated DateTime 2 23.3 kg/m2 162.56 cm 96 % 96 % 110 /min 97.7 [degF] 91213.1 3 g 100/65 mm[Hg] Not Available [facility] 3 05:57:19 Date Recorded Body mass index (BMI) Body height Body weight Provider Name and Address Organization Details Last Updated DateTime 08/12/2022 23.3 kg/m2 162.56 cm 49245.13 g Not Available [facility] 11/30/2022 05:57:20 Social History Question Answer Notes LastModified by [employer] Details LastModified Time Tobacco Smoking Status Current Every Day Smoker Not Available [facility] 11/30/2022 05:53:54 What Is Your Level Of Caffeine Consumption? Moderate [id number] Information not available 11/30/2022 Do You Use Your Seat Belt Or Car Seat Routinely? Yes [id number] Information not available 11/30/2022 At What Age Did You Start Smoking Tobacco? 16 [id number] Information not available 11/30/2022 How Much Tobacco Do You Smoke? 1 PPD [id number] Information not available 11/30/2022 How Many Years Have You Smoked Tobacco? 44 [id number] Information not available 11/30/2022 Sex: Female Functional Status Question Answer Note LastModified by [employer] Details LastModified Time Do you use any illicit or recreational drugs? No [id number] Information not available 11/30/2022 Do you or have you ever used any other forms of tobacco or nicotine? No [id number] Information not available 11/30/2022 What is your level of alcohol consumption? None [id number] Information not available 11/30/2022 What is your occupation? disabled [id number] Information not available 11/30/2022 What is your exercise level? None [id number] Information not available 11/30/2022 Mental Status None recorded. Family History Relationship Description Onset Age of this Age Resolved Age Notes LastModified by Organization Details LastModified Time Father Chronic obstructive pulmonary disease [email or web address] Not available 03/14 14:16:32 Mother Diabetes mellitus [id number] Not available 11/30/2022 05:55:09 Mother Congestive heart failure [email or web address] Not available 03/14 14:16:32 Son Asthma [email or web address] [id number] Not available 11/30/2022 05:55:10 Medical History Condition Response CANCER: SPECIFY Y ARTHRITIS Y EYE PROBLEMS Y GERD/NAUSEA Y HEART DISEASE/HEART PROBLEMS Y DIABETES, TYPE Y OTHER # 1 Y LUNG DISEASE/DISORDER Y DEPRESSION (INCLUDING POST ) Y RADIATION / CHEMOTHERAPY Y Gynecological History Statement/Question Response Most Recent Bone Density 05/25/2021 Date of LMP Date of Last Pap Smear 03/25/2019 Current Control Method Hysterectom y Age at Menarche 14 Most Recent Mammogram 08/06/2020 Breast Problems no Obstetrics History GPAL:G 3 P 2 0 1 2 Type Value Full Term 2 Induced 1 Living 2 Total 3 Immunizations Vaccine Type Date Status Note Provider Nam e and Address Organization Details Recorded Time Influenza, split virus, quadrivalent, preservative 3 completed Not Available [facility] 11/30/2022 06:07:33 Past Encounters Encounter ID Performer Location Encounter Start Date Encounter Closed Date Diagnosis/Indication Diagnosis SNOMED-CT Code Diagnosis ICD10 Code Diagnosis IMO Codes Diagnosis Note [id number] [facility] _ATHENA_M IGRATION_ DEFAULT_1 _1 , 05/17/2021 00:00:00 05/17/2021 16:24:16 [id number] Malia Roblero MD _CT_[place]ristopher IGRATION_ DEFAULT_1 _1 , 12/09/2021 00:00:00 12/09/2021 09:53:36 [id number] [facility] Kalyn Powell [address] [place] [address] 12/23/2021 00:00:00 12/23/2021 15:57:26 [id number] [facility] _ATHENA_M IGRATION_ DEFAULT_1 _1 , 03/24/2022 00:00:00 03/24/2022 22:26:08 [id number] [facility] _ATHENA_M IGRATION_ DEFAULT_1 _1 , 08/12/2022 00:00:00 08/15/2022 09:31:30 [id number] Malia Roblero MD [facility] Kalyn Powell [address] [place] [address] 03/14/2023 14:14:16 03/14/2023 14:42:15 Well controlled type 2 diabetes mellitus [id number] E11.9 a1c of 6.7%- continue on bydureon 2 mg once weekly and synjardy as patient tolerating well. Recommende d she incorporat e natural insulin translator s such as pears, apples, cinnamon, erma and sweet potatoes to help mobilize her endogenous insulin. Recommende d up to 150 minutes of moderate level activity/e xercise weekly. Arthritis 4202013 M19.90 Will send for repeat AMRIT with specific antibodies along with rheumatoid screening to assess for any evidence of autoimmune disease. Proteinuria 00228147 R80 .9 She was encouraged to come off NSAID therapy as this may be contributi ng to early kidney damage. Send for 25 hour urine protein. Thyroid nodule [id number] E04.1 Repeat thyroid u/s as she has order at home and aware she is over due for this. send for full thyroid, calcitonin and parathyroi d function panel. Spent up to 28 minutes preparing to see the patient (eg, review of tests), obtaining and/or reviewing separately obtained history, performing a medically appropriat e examinatio n and evaluation , counseling and educating the patient, ordering medication s, tests, along with documentin g clinical informatio n in the electronic health record, independen tly interpreti ng results and communicat ing results to the patient. RTC in 6 months. Patient was provided a handwritte n lab order which contains our fax number. If she chooses to go outside of the [facility] system to obtain labwork she was advised to provide our fax number and my informatio n to the lab she will be obtaining labwork from in order to have her labs properly forwarded over for me to review so there is no loss of follow up due to use of outside network. She was also advised to contact our clinic informing us that she has completed her labwork so we are aware we will need to reach out to the appropriat e laboratory to request her results be forwarded to us so I might have the ability to review and make further medical decision making in her case. She voiced understand ing. Health Concerns Section Related Observation LastModified by Organization Detai ls LastModified Time None Recorded Concern Status LastModified by Organization Details LastModified Time None Recorded Advance Directives Directive None Recorded Payers Insurance Date Sequence Insurance Name Policy Number Policy Harper Covered Member ID Harper Member ID Guarantor Name 12/06/2024 1 [facility] (MEDICARE REPLACEMENT/AD VANTAGE - HMO) [id number] Priya Pa [id number] Priya Pa 12/06/2024 2 [facility] - DOS ON OR AFTER 21 (MEDICAID REPLACEMENT - HMO) Priya Pa [id number] Priya Pa Notes Date Note Type Note Provider Name and Address Organization Details Recorded Time 03/14/2023 text/html ROS as noted in the HPI 62 yo female comes in for follow up in management of type 2 DM (A1C of 6.7%) and multinodular goiter. last seen in March 2022 at that time we had patient continue on bydureon 2 mg weekly along with synjardy. she is having some joint aches and pains in her ankles and wrists. She does follow her PCP every 3 months. her blood pressure is low and usually running under 120/80 mmHg due for thyroid u/s and has order to complete this sugar are running 90-130 mg/dL labs from 03/08/23:a1c 6.7%TSH of 1.29 uIU/mlFT4 of 1.1 ng/dLmicroalbumin 407 ug/mgglucose 113 mg/dLCr normalLFT normalK 3.4 mmol/L Malia Roblero MD [address] [facility] [facility] [address], [place], [address], [facility] - [facility] 03/14/2023 15:10:08 OBGyn Episode No OBEpisode recorded.
--- OUTSIDE RECORDS SUMMARY | 2025-08-20 14:45 | XMS_ITS ---
Author Organization [facility] Address [address] [place] [address] Care Team Providers Care Gear Coding Machine Operator Name Role Phone Boris Segundo MD Primary Care Provider [phone] Daniel Paulino MD Unavailable [phone] Chicho Brannon MD Unavailable [phone] Active Problems Problem Noted Date Diagnosed Date Rectal bleeding 04/10/2025 Dyspnea on exertion 03/19/2025 Retained ureteral stent 12/01/2020 Overview (12/01/2020): Possible retained ureteral stent, Unable to reach patient for ureteral stent removal. If patient presents to your facility please call Urology at [phone] History of rectal cancer 12/05/2019 Overview (12/05/2019): Added automatically from request for surgery [id number] Screen for colon cancer 10/04/2019 Overview (10/04/2019): Added automatically from request for surgery [id number] Calculus of ureter 04/21/2019 Right ureteral stone 04/21/2019 Rectal cancer 09/11/2018 Cancer Staging:Clinical stage from 09/11/2018:Stage IIIB(cT3, cN1b, cM0) - Signed by Daniel Paulino MD on 09/18/2018 Pulmonary nodules Current Treatment and Therapy Plans No current plan information found. Past Treatment and Therapy Plans Oncology Chemotherapy Treatment Plan Name Start Date Discontinue Date Treatment Medications Discontinue Reason Plan Provider Cycles [phone] - [facility] - GI RAD ONC - NORMAL-R for Low Rectal Cancer - FOLFOX 9 03/12/2019 fluorouracil (ADRUCIL)fluorou racil (ADRUCIL) infusion - for home infusion (ADRUCIL)leucovo rin IVPB in 250 mLoxaliplatin (ELOXATIN) IVPB Therapy Complete Giselle Almazan MD 8 of 8 cycles started Oncology Supportive Care Therapy Plan Plan Name Start Date Discontinue Date Treatment [...] mGy 6 .38 mGy 0 mGy DLP 4,258 mGycm 4,258 mGycm 0 mGycm CTDIvol 0.67 mGy 0.67 mGy 0 mGy
--- OUTSIDE RECORDS SUMMARY | 2025-08-20 14:45 | XMS_ITS | Clinical Summary ---
Author Organization [facility] Facility Address [address] [place] [address] Care Team Providers Care Bit Shaver Name Role Phone Boris Segundo MD Primary Care Provider [phone] Medications varenicline (CHANTIX) 0.5 MG tablet TAKE 1 TABLET(0.5 MG) BY MOUTH IN THE MORNING AND 1 TABLET IN THE EVENING. TAKE WITH FULL GLASS OF WATER 180 tablet 4 Active ergocalciferol 1.25 MG (46197 UT) capsule Take 1 capsule (50,000 Units [...] Department Care Team Description 08/05/2025 Documentation Only [facility], [address] [phone] Radu Ibrahim DO 08/05/2025 Documentation Only [facility], [address] [phone] Radu Ibrahim DO 08/05/2025 Documentation Only [facility], [address] [address] Radu Ibrahim, 08/04/2025 Documentation Only [facility], [address] [address] LeightonJcarlosen 07/12/2025 Refill [facility], [facility] [address] [place] [phone] Radu Ibrahim, 07/11/2025 Documentation Only [facility], [address] [phone] Radu Ibrahim, 07/09/2025 Refill [facility], [facility] [address] [place] [phone] Radu Ibrahim, DO 07/09/2025 Documentation Only [facility], [address] [phone] Radu Ibrahim, 06/29/2025 Refill [facility], [facility] [address] [place] [phone] Radu Ibrahim, DO from Last 3 [...] st Contact Info) Description 09/23/2025 2: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, [facility] [address] [place] [phone] Radu Ibrahim DO [address] [place] [address] Health Maintenance Due Date Last [...] A1C 8.2(H) <5.7 % of total Hgb [facility] Comment: For someone without known [...] Organization Information: Site ID: [facility] Address: [address] [phone] Director: Nikhil Martin us Radu Ibrahim DO LAB BLOOD ORDERABLES Final R esult [facility] [address] [address] [place] [phone] from Last 3 Months or Most Recently Relevant to Health Maintenance Insurance Medicare [facility]) Care Teams Bit Shaver Relationship Specialty Start Date End Date Boris Segundo MD [address] [place] [id number] PCP - General Family Medicine 07/18/23
--- OUTSIDE RECORDS SUMMARY | 2025-08-20 14:46 | XMS_ITS | Patient Health Record ---
Author Organization [facility] Address [address] [place], [place] [address] Care Team Providers Care Aerophysics Engineer Name Role Phone Rosa Maria Pelayo Unavailable [phone] Reason For Referral No Information Plan Of Treatment No Information
== END 2025-08-20 10:22 | disposition home or self-care (01) ==
LOC: ANHFOHIMG 10:22
PROVIDERS: PCP Family Medicine; Visit Provider Obstetrics & Gynecology
DX: Z12.31 Encounter for screening mammogram for malignant neoplasm of breast (principal)
CPT/HCPCS: 77063; 77067